=== PATIENT | male | born 1955 | race Caucasian/White ===

== ENCOUNTER 2017-02-22 09:05 | Inpatient (IN) ==
[2017-02-22] MEDS ORDERED: Tirofiban 12.5 MG/250ML 12.5 MG/250 ML BAG ONE (09:16)
[2017-02-22] MEDS ORDERED: Verapamil 5 MG/2 ML VIAL ONE (09:16)
[2017-02-22] MEDS ORDERED: *HR* Midazolam HCl 5 MG/5 ML VIAL IVP ONE (09:34)
[2017-02-22] MEDS ORDERED: *HR* FentaNYL (PF) 100 MCG/2 ML VIAL ONE (09:34)
[2017-02-22] MEDS ORDERED: 0.9 % Sodium Chloride 1,000 ML ONE (09:34)
--- NOTE | 2017-02-22 10:39 | Pre-Sedation Evaluation ---
Pre-sedation evaluation - Pre-sedation checklist Date of procedure: 02/22/17 Procedure: left heart cath Recent Vitals: VS as documented by EMR H&P (including ROS) documented in medical record: Yes Previous reaction to sedatives/anesthetics: No Dietary Status: unknown Airway Assessment: Patient can open mouth completely, TMJ function normal Dentition: No loose teeth or bridges ASA Classification *see protocol: CLASS II-Mild systemic disease, E-EMERGENCY- Add to any of the above to indicate emergent Plan of Care: Pt appropriate candidate for procedure/moderate/conscious sedation , Risks/benefits of procedure/sedation discussed w/ patient/family, If not NPO; Risk of intake outweiged by necessity to perform procedure
--- NOTE | 2017-02-22 10:50 | Invasive Diagnostic Lab Proc ---
Name: Benjie Preciado Date of Study: 02/22/2017 Date: 1955 Ht: 73.0in Medical Record#: [id number] Age: 61 Wt: 200.40lb Gender: Male BSA: 2.15 Order #: [id number] BMI: 26.45 Physicians Procedure Physician: Raymond Mann MD, [facility] Referring MD: Juan M Gomez MD Referring MD: Staff Name Position Time In Corky Mcallister RN Monitor 09:36 AM LeoCari RN Monitor 09:37 AM Haydee Regan RN Leadership Intern 09:37 AM Jennifer aPris RN Leadership Intern 09:37 AM Corine Pickens RT (R) Scrub 09:37 AM Indications Indication STEMI Procedures Performed Procedure PRQ CARD REVASC IA 1 VSL L HRT ARTERY/VENTRICLE ANGIO PRQ CARD SAMINA STENT W/ANGIO 1 VSL Pre-Procedure Checklist Informed consent is complete signed and on chart. H&P is on chart. ID band is on and ID verified with patient. Patient NPO for procedure The procedure was described for the patient and questions were answered. Blood Pressure: 139/74 ECG is on chart. Rhythm: NSR Plan of Care Patient will tolerate the procedure without complications. Adequate level of comfort will be maintained. Hemodynamics will remain stable Patient will recover from procedure without complications. Respiratory function will be maintained. Cardiac rhythm will remain stable. Patient temperature will be maintained. Patient and/or family have verbalized understanding of the procedure. Patient Education Chief Complaint/Reason for Test: Cardiac Cath Developmental Category: Adult (18-64 years) Developmentally Appropriate for Age: Yes Learning Barriers: None Education Needs: Procedure Education Method: Verbal Information Taught: Cardiac Cath Educational Evaluation: Able to repeat information Intravenous Access Time IV Size Location DC'd Fluid/Drip Rate Units RN 20g 1 1/4" Patent On Arrival Rt Hand Haydee Regan RN 20g 1 1/4" Patent On Arrival Lt Wrist 0.9NaCl Haydee Regan RN Allergies No Known Allergies Vital Signs Time BP (mmHg) HR (bpm) O2 Sat. RR (bpm) LOC 09:43 AM / % 5 = Fully awake and oriented or at pre-proc level 09:39 AM 133 / 113 83 96 % 12 09:45 AM 127 / 72 89 89 % 22 09:50 AM 127 / 70 89 91 % 28 09:54 AM 109 / 67 90 83 % 15 09:59 AM 88 / 63 87 89 % 32 10:01 AM 128 / 90 86 93 % 24 10:09 AM 226 / 171 86 93 % 22 10:16 AM 92 / 64 85 91 % 27 09:43 AM / % 4 = Oriented but drowsy 09:58 AM / % 4 = Oriented but drowsy Procedural Medications Time Medication Dose Units Method Given By 09:38 AM Oxygen 2 L/min nasal cannula Haydee Regan RN 09:40 AM Versed 2 mg Intravenous Haydee Regan RN 09:40 AM Fentanyl 50 mcg Intravenous Haydee Regan RN 09:44 AM Lidocaine 2% 0.5 ml Subcutaneous Raymond Mann MD, FACC 09:45 AM Heparin 4000 units Nitroglycerin 200 mcg Verapamil 2.5 mg Intraarterial Raymond Mann MD, FACC 09:45 AM Oxygen 6 L/min nasal cannula Haydee Regan RN 09:56 AM Oxygen 10 L/min Oxy Mask Haydee Regan RN 09:59 AM Angiomax 0.75mg/kg bolus: 46 ml Intravenous Haydee Regan RN 09:59 AM Aggrastat Bolus: 46 ml Intravenous Haydee Regan RN 09:59 AM Aggrastat 12.5mg/250ml 16.5 ml/hr Intravenous Haydee Regan RN 10:03 AM Oxygen 12 L/min Oxy Mask Haydee Regan RN 10:04 AM Oxygen 15 L/min nasal cannula Haydee Regan RN 10:07 AM Heparin 2000 units Intravenous Haydee Regan RN ASA Classification: CLASS II- Mild systemic disease (i.e. well-controlled diabetes, hypertension, asthma, cigarette smoking) Emergent Procedure: ASA score is assumed Glenn Score Preprocedure Postprocedure Activity 2- Moves 4 extremities sustained head lift Activity 2- Moves 4 extremities sustained head lift Circulation 2- SBP +/= 20 points of pre-anesthetic level Circulation 2- SBP +/= 20 points of pre-anesthetic level Consciousness 2- Awake and alert oriented x 3 Consciousness 2- Awake and alert oriented x 3 O2 Saturation 2- Able to maintain O2 satruation of 92% on room air O2 Saturation 2- Able to maintain O2 satruation of 92% on room air Respiratory 2- Able to deep breathe and cough well Respiratory 2- Able to deep breathe and cough well Total Score 10 Total Score 10 Contrast Agent: Isovue Diagnostic Contrast: 152 ml Total Contrast: 152 ml Fluoro Dose: 423 mGy Activated Clotting Time Time Seconds to Clot 10:07 AM 237 Procedure Log Time Note Enter By 09:23 AM CathStat 09:33 AM Pt arrived to lab coordinator 2 at 09:33 [facility] 09:33 AM Physicdesmond paged/called 09:33. jcallihan 09:33 AM Physican responded and notified patient is ready 09:33 [email or web address] 09:33 AM Physician arrived 09:33 jcallihan 09:36 AM Meet and greet completed [facility] 09:36 AM Sign in performed according to hospital policy. jcallan 09:36 AM Procedure start 09:36 jcallihan 09:37 AM Corky Mcallister RN Position: Monitor Time in: 09:36 jcallan 09:37 AM Cari Bailey RN Position: Monitor Time in: 09:37 [facility] 09:37 AM Haydee Regan RN Position: Leadership Intern [facility]: 09[facility] AM Jennifer Paris RN Position: Leadership Intern Time in: 09:37 [facility] 09:37 AM Corine Pickens RT (R) Position: Scrub Time in: 09:37 [facility] 09:37 AM Patient charges- Angio tray pack, Navilyst 3mm J, Pulse Oximetry and ACIST tubing and transducer [facility] 09:37 AM Hair removed from procedure site in holding area using clippers. Right wrist/groin prepped with Chloraprep by Corine Pickens RT (R), then patient was draped. Skin intact. [facility] 09:38 AM Time: 09:38 Oxygen on at 2 L/min per nasal cannula by Haydee Regan RN [facility] 09:39 AM Vitals capture started with the following parameters, Patient=Adult, Interval=5 min, Initial Amkkudys=901 mmHg, Deflation Rate=5 mmHg, Cuff placed on Left Arm 09:39 AM Recorded ECG: HR=88 Condition=Condition 1 09:39 AM HR=83 bpm, MIEP=322/113 mmhg, SpO2=96.0 %, Resp=12 B/min, Comment=NSR 09:40 AM Time: 09:40 Versed 2 mg Intravenous Given by Haydee Regan RNdesmond 09:40 AM Time: 09:40 Fentanyl 50 mcg Intravenous Given by Haydee Regan RN [facility] 09:42 AM Time: 09:42 Patient comfortable and pain free: Yes [email or web address] 09:43 AM Time: :43LOC: 5 = Fully awake and oriented or at pre-proc level jcallihan 09:43 AM Clinical Presentation: STEMI or equivalent jcallihan :44 AM Time out performed according to hospital policy jcallihan 09:44 AM Pressure channel 3 zero failed. 09:44 AM Pressure channel 3 zeroed. 09:45 AM Time: :44 0.5 ml Lidocaine 2% to right radial Subcutaneous Given by Raymond Mann MD, [facility] 09:45 AM Access obtained by percutaneous puncture. 6Fr 11cm Terumo Glidesheath sheath placed in right Radial artery. [id number] jcallan 09:45 AM HR=89 bpm, YIWK=139/72 mmhg, SpO2=89.0 %, Resp=22 B/min, Comment=NSR 09:45 AM Time: 09:45 Patient given 4,000 units Heparin, 200 mcg Nitroglycerin, and 2.5 mg Verapamil [facility]arterial [facility] AM Time: 09:45 Oxygen on at 6 L/min per nasal cannula by Haydee Regan RN [facility] 09:46 AM ASA Class CLASS II- Mild systemic disease (i.e. well-controlled diabetes, hypertension, asthma, cigarette smoking) jcallihan 09:48 AM 6Fr EBU 3.0 Medtronic guide catheter was used to cannulate the PCI vessel successfully. reused? No jcallihan 09:48 AM RCA angiography performed in multiple views. jcallihan 09:48 AM Recorded Pressure: Ao, HR=89, Condition=Condition 1 (Aorta) Ao 102/71/85 09:49 AM Repositioned to LCA. jcallihan 09:49 AM LCA angiography performed in multiple views. jcallihan 09:49 AM .014 Tamms 190cm guide wire across target lesion- successful. reused? No jcallihan 09:50 AM Inflation device was opened. jcallihan 09:50 AM HR=89 bpm, ZDVX=720/70 mmhg, SpO2=91.0 %, Resp=28 B/min, Comment=NSR 09:50 AM PCI Status Emergency jcallihan 09:50 AM PCI Indication: Immediate PCI for STEMI jcallan 09:51 AM Recorded Pressure: Ao, HR=89, Condition=Condition 1 (Aorta) Ao 103/71/86 09:51 AM 2.0 mm x 15 mm Emerge Monorail balloon across target lesion- successful. reused? No jcallihan 09:52 AM Balloon inflated @ 10 telma for 10 seconds jcallihan 09:54 AM Balloon catheter removed intact. allan 09:54 AM Recorded Pressure: Ao, HR=87, Condition=Condition 1 (Aorta) Ao 92/62/76 09:54 AM HR=90 bpm, NOYK=267/67 mmhg, SpO2=83.0 %, Resp=15 B/min, Comment=NSR 09:56 AM 3.0mm x 24mm Synergy drug-eluting stent across target lesion- successful Lot #[id number] [facility] 09:56 AM Time: 09:56 Oxygen on at 10 L/min per Oxy Mask by Haydee Rgean RN [facility] 09:57 AM Stent deployed @ 16 telma for 16 seconds [facility] 09:57 AM Time: 09:42 Patient comfortable and pain free: Yes [facility] 09:58 AM Time: 09:43LOC: 4 = Oriented but drowsy [facility] 09:58 AM Stent delivery system removed intact. [facility] 09:59 AM Pressure channel 3 zeroed. 09:59 AM Recorded Pressure: Ao, HR=89, Condition=Condition 1 (Aorta) Ao 98/71/86 09:59 AM Time: 09:59 Aggrastat Bolus: 46 ml Intravenous Given by Haydee Regan RN Strong pump [facility] 09:59 AM HR=87 bpm, NIBP=88/63 mmhg, SpO2=89.0 %, Resp=32 B/min 09:59 AM Time: 09:59 Aggrastat 12.5mg/250ml 16.5 ml/hr Intravenous Given by Haydee Regan RN Strong pump [facility] 10:00 AM NIBP STAT measurement started. 10:00 AM 3.5 mm x 8mm NC Trek Rx balloon across target lesion- successful. reused? No [email or web address] 10:01 AM HR=86 bpm, AOSC=965/90 mmhg, SpO2=93.0 %, Resp=24 B/min, Comment=NSR 10:01 AM Balloon inflated @ 14 telma for 20 seconds [email or web address] 10:03 AM Balloon catheter removed intact. jcallan 10:03 AM Time: 10:03 Oxygen on at 12 L/min per Oxy Mask by Haydee Regan RN [facility] 10:04 AM 3.0mm x 12mm Synergy drug-eluting stent across target lesion- successful Lot #[id number] [facility] 10:04 AM Time: 10:04 Oxygen on at 15 L/min per nasal cannula by Haydee Regan RN [facility] 10:04 AM Recorded Pressure: Ao, HR=84, Condition=Condition 1 (Aorta) Ao 91/64/79 10:06 AM Recorded Pressure: Ao, HR=77, Condition=Condition 1 (Aorta) Ao 72/52/63 10:06 AM NIBP STAT measurement started. 10:06 AM Stent deployed @ 14 telma for 16 seconds [facility] 10:07 AM At 10:07 the ACT was 237 seconds. [facility] 10:07 AM Stent delivery system removed intact. [facility] 10:07 AM Time: 10:07 Heparin 2000 units Intravenous Given by Haydee Regan RN [facility] 10:07 AM 3.0 mm x 8mm NC Trek Rx balloon across target lesion- successful. reused? No jcallihan 10:08 AM NIBP STAT measurement started. 10:09 AM Recorded Pressure: Ao, HR=87, Condition=Condition 1 (Aorta) Ao 94/73/84 10:09 AM HR=86 bpm, CJBG=256/171 mmhg, SpO2=93.0 %, Resp=22 B/min 10:09 AM Balloon inflated @ 18 telma for 20 seconds [email or web address] 10:09 AM Balloon inflated @ 18 telma for 15 seconds jcallihan 10:11 AM Balloon catheter removed intact. jcallihan 10:11 AM Guide wire removed intact. jcallihan 10:11 AM Guide catheter removed intact. jcallihan 10:11 AM 5Fr Pigtail catheter inserted over the wire DNC jcallihan 10:11 AM Catheter selectively placed in left ventricle jcallihan 10:13 AM Recorded Pressure: LV, HR=81, Condition=Condition 1 (Left Ventricle) LV 102/20/28 10:14 AM Recorded Pressure: LV, Ao, HR=84, Condition=Condition 1 (Left Ventricle) LV 106/24/32, (Aorta) Ao 104/72/88 10:14 AM Time: 09:58LOC: 4 = Oriented but drowsy jcallihan 10:14 AM Time: 09:57 Patient comfortable and pain free: Yes [email or web address] 10:14 AM Bolus angiogram of left Ventricle complete: 12 ml/sec for a total of 30 mls jcallihan 10:15 AM Catheter removed jcallihan 10:15 AM NIBP STAT measurement started. 10:15 AM Procedure completed at 10:15 jcallihan 10:16 AM Sign out completed: Radiation Dose 423 mGy Fluoro Time: 6.8 Isovue 370 - 200ml contrast 152 ml given by Raymond Mann MD, FACC. Complications: NoneCardiac Rehab Consult needed: YesConfirmed administered medications: Yes jcallihan 10:16 AM HR=85 bpm, NIBP=92/64 mmhg, SpO2=91 %, Resp=27 B/min 10:16 AM Arterial sheath pulled, Vasc Band closure device used and was Successful S/N. jcallihan 10:16 AM 10 ml air in Vasc Band. jcallihan 10:17 AM 10:33 Post Pulses Rt Radial 1+ jcallihan 10:17 AM Post ECG NSR jcallihan 10:17 AM Post Blood Pressure 92/64 jcallihan 10:18 AM Information taught Cardiac Cath, PCI, and Vasc Band jcallihan 10:18 AM Education needs Procedure, Plan of Care, and Responsibilities of Patient in Care jcallihan 10:18 AM Learning barriers :None jcallihan 10:18 AM Education Methods Verbal jcallihan 10:18 AM Education evaluation Able to repeat information jcallihan 10:19 AM Site status No bleeding/hematoma - Rt Wrist as reported by Corine Pickens RT (R) at 10:18 jcallihan 10:19 AM Plavix, Effient or Brilinta given No, Plavix given at [place] [facility] jcallihan 10:20 AM Delay to floor No jcallihan 10:20 AM Complications: None jcallihan 10:20 AM Fluoro Time: 6.8 jcallihan 10:20 AM Isovue 370 - 200ml contrast 152 ml given by Raymond Mann MD, [facility]. jcallihan 10:20 AM Radiation Dose 423 mGy jcallihan 10:24 AM Lesion found in Proximal LAD. Pre Stenosis: 100 Pre CAM Flow: jcallihan 10:24 AM Lesion found in Proximal RCA. Pre Stenosis: 20 Pre CAM Flow: jcallihan 10:25 AM Lesion found in Mid Circumflex. Pre Stenosis: 95 Pre CAM Flow: jcallihan 10:25 AM Proximal Left Anterior Descending Coronary Artery with 100% stenosis. If graft is supplying this territory, 0 % stenosis. jcallihan 10:25 AM Right Coronary, Right Posterior Descending Arteries with Right Posterolateral and Acute Marginal branches with 20 % stenosis. If graft is supplying this area, 0 % stenosis jcallihan 10:25 AM Circumflex, Obtuse Marginal, Left Posterior Descending, and Left Posterolateral Coronary Arteries with 95 % stenosis. If graft is supplying this area, 0 % stenosis jcallihan 10:31 AM Report given to Margie BENOIT Pt taken to ICU Room #12. 10:31 jcallihan 10:33 AM Patient out of room: 10:33 jcallihan 10:43 AM Coronary Dominance: right [email or web address] Complications Complication None None Hemodynamics Pressures Site Systolic/A Wave Diastolic/V Wave Mean AO 102 71 85 AO 103 71 86 AO 92 62 76 AO 98 71 86 AO 91 64 79 AO 72 52 63 AO 94 73 84 LV 102 20 28 LV 106 24 32 AO 104 72 88 Post Procedure Information Blood Pressure: 92/64 mmHg Rhythm: NSR Post procedural instructions were given Closure Device Time Device Success/Fail 02/22/2017 10:22:00 AM Mechanical Compression Successful Site Checks Time Location Status Staff Sheath In? Note 10:18 AM Rt Wrist No bleeding/hematoma Corine Pickens RT (R) Pulses Time Site Pre-Procedure Post-Procedure Note 10:33:00 AM Rt Radial 1+ 02/22/2017 9:35:00 AM Rt Radial 1+ Updated by Corky Mcallister RN on 02/22/2017 10:44:52 AM electronically signed on 02/22/2017 10:46:34 AM with status of Final
[2017-02-22] MEDS ORDERED: Nitroglycerin 0.4 MG TAB.SUBL SL PRN (11:13)
[2017-02-22] MEDS ORDERED: Ondansetron 4 MG/2 ML VIAL IVP PRN (11:13)
[2017-02-22] MEDS ORDERED: *HR* Morphine 2 MG/ML SYRINGE IVP PRN (11:13)
[2017-02-22] MEDS ORDERED: *HR* Metoprolol 5 MG/5 ML VIAL IVP PRN (11:13)
[2017-02-22] MEDS ORDERED: Tirofiban 12.5 MG/250ML 12.5 MG/250 ML BAG IVC SCH (11:15)
[2017-02-22] MEDS ORDERED: Acetaminophen 325 MG TABLET PO PRN (11:18)
--- NOTE | 2017-02-22 11:26 | Cardiology History & Physical ---
Date of Encounter: 02/22/17 Time of Encounter: 11:20 Assessment and Plan (1) ST elevation myocardial infarction (STEMI) Current Visit: No Status: Acute Emergent LHC for life saving purposes with anterolateral STEMI. A/R/B discussed with patient and he is agreeable with proceeding. Aspirin, brilinta, and heparin given. Statin will be ordered and EF assessment completed with further treatment dictated by findings on LHC. Cardiac rehab ordered. Critical care time: 45 minutes+ The assessment and plan as outlined above was discussed with the patient and/or family members who expressed understanding and agreement. All questions were answered. Qualifiers: Involved coronary artery: LAD coronary artery Qualified Code(s): I21.02 - ST elevation (STEMI) myocardial infarction involving left anterior descending coronary artery (2) Hypertension Current Visit: Yes Status: Acute tirate BB/ACEI The assessment and plan as outlined above was discussed with the patient and/or family members who expressed understanding and agreement. All questions were answered. Qualifiers: Hypertension type: essential hypertension Qualified Code(s): I10 - Essential (primary) hypertension History of Present Illness HPI: Mr. Preciado is a 61 year old male with no previous cardiac history presents with severe 8/10 chest pressure that is retrosternal radiating from left to right side of chest associated with dyspnea. It started at 530 AM and had minimal improvement with aspirin, NTG and oxygen. He has had this discomfort previously but not as severe. 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 Past Med Surg Social Fam HX - Past Medical History Medical history: hypertension, seizures Psychiatric history: anxiety, depression - Past Surgical History Surgical History: angioplasty/stent - Social History Smoking Status: Current every day smoker Packs per day: 1 Smokeless Tobacco Status: No Alcohol use: none Drug use: none - Family History Father Living Status: Age at : 64 Cause of : heart disease Hx Family Cardiac Disorders: Yes Mother Living Status: Cause of : CVA Medications and Allergies Citalopram Hydrobromide [Celexa] 40 mg PO DAILY 03/15/16 [History] risperiDONE [Risperidone] 1 mg PO DAILY 03/15/16 [History] 3 Allergy/AdvReac Type Severity Reaction Status Date / Time No Known Allergies Allergy Verified 03/15/16 10:37 All Systems Review: A 10-system review of systems was performed and is negative for pertinent findings except as documented above in the HPI. - Constitutional Constitutional: no chills, no fever(s) - EENT Eyes: no blurred vision, no loss of vision Nose, mouth and throat: no dysphagia, no epistaxis - Cardiovascular Cardiovascular: chest pain at rest, chest pain with exertion, dyspnea at rest - Respiratory Respiratory: dyspnea, no hemoptysis, no wheezing - Gastrointestinal Gastrointestinal: no hematemesis, no hematochezia - Genitourinary Genitourinary: no hematuria, no nocturia - Musculoskeletal Musculoskeletal: no arthralgias, no myalgias - Integumentary Integumentary: no erythema, no unusual bruising - Neurological Neurological: no focal weakness, no numbness - Psychiatric Psychiatric: no anxiety, no depression - Hematological/Lymphatic Hematologic/Lymphatic: no easy bleeding, no easy bruising Physical Examination Vital Signs, Last 4 Hours Temp Pulse Resp BP Pulse Ox 02/22/17 11:05 75 22 101/74 92 02/22/17 10:50 78 22 105/75 92 02/22/17 10:35 97.6 F 76 20 106/75 94 General: Conversant, Other (distressed) HEENT: Atraumatic Neck: No JVD Cardiac: Reg Rate and Rhythm Lungs: Normal Breath Sounds Neuro: Alert and responsive Abdomen: Soft Skin: No rashes noted on visualized skin Musculoskeletal: No Chest Wall Tenderness Extremities: No Edema Results - EKG Interpretation EKG results cardiology: personally reviewed (sinus rhythm anterolateral current of injury)
--- NOTE | 2017-02-22 21:02 | Electrocardiograph Report ---
[address] [place], [place] [address] Test Date: 2017-02-22 Pat Name: Benjie Preciado Department: [id number] Room: 12 Gender: M Dye Tank Tender: Rich : 1955 Requested By: Raymond Mann Order Number: [id number] Reading MD: Raymond Mann MD Measurements Intervals [place] Rate: 79 P: 81 UT: 146 QRS: -46 QRSD: 102 T: 54 QT: 348 QTc: 383 Interpretive Statements SINUS RHYTHM INDETERMINATE AXIS LEFT ANTERIOR FASCICULAR BLOCK ANTEROLATERAL MYOCARDIAL INFARCTION, PROBABLY RECENT ACUTE MA Electronically Signed On 02-22-2017 21:01:05 EDT by Raymond Mann MD
[2017-02-22] MEDS: risperiDONE 1 MG TABLET PO SCH (21:30)
[2017-02-22] MEDS: *HR* Ticagrelor 90 MG TABLET PO SCH (21:30)
[2017-02-23 03:52] LABS: BUN/Creatinine Ratio 15 (6-26); Basophils % 0.2 %; Blood Urea Nitrogen 14 mg/dL (8-26); Calcium 8.9 mg/dL (8.6-10.8); Carbon Dioxide 22 mEq/L (19-29); Chloride 107 mEq/L (98-109); Glucose 118 mg/dL (70-99); Hematocrit 40.6 % (37.5-50.1); Hemoglobin 14.1 g/dL (12.9-16.9); Immature Granulocytes % 0.4 % (0-4); Lymphocytes % 7.6 %; Mean Corpuscular HGB Conc 34.7 g/dL (31.6-35.5); Mean Corpuscular Hemoglobin 31.5 pg (28.0-33.3); Mean Corpuscular Volume 90.8 fL (83.0-100.0); Mean Platelet Volume 10.4 fL (9.4-12.4); Monocytes # 1.2 K/mcL (0.0-1.3); Monocytes % 8.8 %; Neutrophils # 11.3 K/mcL (1.6-8.9); Osmolality,Calculated 284 (280-300); Platelet Count 208 K/mcL (140-400); Red Blood Count 4.47 M/mcL (4.19-5.50); Red Cell Distribution Width 12.9 % (11.5-14.5); Sodium 136 mEq/L (136-145); eGFR For African Americans > 60 (> 60); eGFR For Non-African Americans > 60 (> 60)
[2017-02-23] MEDS: Aspirin 81 MG TAB.CHEW PO SCH (08:42)
[2017-02-23] MEDS: *HR* Ticagrelor 90 MG TABLET PO SCH ×2 (08:42→19:49)
[2017-02-23] MEDS: *HR* HYDROcodone/Acet 5/325 mg TABLET PO PRN ×2 (08:45→19:49)
--- NOTE | 2017-02-23 11:35 | Cardiology Progress Note ---
Date of Encounter: 02/23/17 Time of Encounter: 11:32 Assessment and Plan (1) STEMI (ST elevation myocardial infarction) Current Visit: Yes Status: Acute Pt presented as anterolateral STEMI. [facility] with PCI to pLAD and mLCx, EF estimated at 20% on LHC. Echo EF 25-30% with wall motion abnormalities, mild LVDD, no significant valvular dysfunction. Small pericardial effusion without tamponade. Pt denies chest pain or dyspnea this AM. DAPT (ASA and Brilinta) uninterrupted x 1 year. Pt verbalizes understanding. Continue Statin. No BB or ACEi/ARB due to hypotension. Possible step down later today depending on BP. Right radial access site healing well. No bleeding, hematoma or ecchymosis noted. Qualifiers: Involved coronary artery: other anterior wall coronary artery Qualified Code(s): I21.09 - ST elevation (STEMI) myocardial infarction involving other coronary artery of anterior wall (2) Ischemic cardiomyopathy Current Visit: Yes Status: Acute EF 25-30% on echo s/p STEMI and now s/p PCI. Recheck echo as outpt. Euvolemic on exam. Currently not on BB or ACEi/ARB due to hypotension. (3) CAD (coronary artery disease) Current Visit: Yes Status: Acute As above, s/p STEMI with PCI to pLAD and mLCx. Qualifiers: Coronary Disease-Associated Artery/Lesion type: [place] artery [place] vs. transplanted heart: [place] heart Associated angina: without angina Qualified Code(s): I25.10 - Atherosclerotic heart disease of [place] coronary artery without angina pectoris Discussion w patient/family: The assessment and plan as outlined above was discussed with the patient and/or family members who expressed understanding and agreement. All questions were answered. Thank you for involving us in the care of your patient. Please call with any questions. I will discuss all the above with Dr. Oscar Ray and make changes as necessary. Subjective Principal diagnosis: STEMI Interval history: S/P anterolateral STEMI yesterday--[facility] with PCI to pLAD and mLCx, EF estimated to be 20% on LHC. Echo resulted-EF 25-30% with regional wall motion abnormalities. Mild LVDD, no significant valvular dysfunction, mild phtn est RVSP 38mmHg. Small pericardial effusion without tamponade. Pt denies chest pain or dyspnea, states he is feeling better. Objective Vital Signs, Last 4 Hours Pulse Resp BP Pulse Ox 02/23/17 10:00 80 20 92/61 93 02/23/17 09:00 83 21 102/60 94 02/23/17 08:05 73 20 98/67 94 02/23/17 08:03 93/64 02/23/17 08:00 77 12 75/50 95 Vital Signs Temp Pulse Resp BP Pulse Ox 02/23/17 10:00 80 20 92/61 93 02/23/17 09:00 83 21 102/60 94 02/23/17 08:05 73 20 98/67 94 02/23/17 08:03 93/64 02/23/17 08:00 77 12 75/50 95 02/23/17 07:00 98.3 F 76 98/67 02/23/17 06:00 81 22 98/71 95 02/23/17 05:00 78 12 98/63 93 02/23/17 04:00 78 18 111/77 96 02/23/17 03:00 79 20 112/68 96 02/23/17 02:00 80 18 112/72 97 02/23/17 01:00 82 17 115/74 95 02/23/17 00:00 86 18 93/55 97 02/22/17 23:00 88 18 114/73 95 02/22/17 22:00 85 18 114/73 97 02/22/17 21:00 80 29 114/64 92 02/22/17 20:32 97.7 F 02/22/17 20:00 83 23 95 02/22/17 19:00 83 23 113/74 93 02/22/17 18:00 90 18 101/84 95 02/22/17 17:00 89 18 116/66 95 02/22/17 16:00 83 20 118/83 98 02/22/17 15:00 85 20 114/82 98 02/22/17 14:00 78 18 118/78 98 02/22/17 13:00 80 20 110/76 98 02/22/17 12:00 73 20 110/74 97 Intake and Output 02/22/17 02/23/17 02/23/17 23:59 07:59 15:59 Intake Total 200 / 200 240 / 240 360 / 360 Output Total 150 / 150 600 / 600 Balance 50 / 50 -360 / -360 360 / 360 Intake: Oral 200 / 200 240 / 240 360 / 360 Output: Urine 150 / 150 600 / 600 Other: Meal Dinner Breakfast Percent of Meal Consumed 35% 100% General: Conversant, No Apparent Distress HEENT: Atraumatic, Normocephaly, Mucus Membranes Moist Neck: No JVD, Normal carotid pulses Cardiac: Reg Rate and Rhythm, Normal S1 and S2, No Murmur Lungs: Normal Breath Sounds, No Wheeze, Rales, Rhonchi Neuro: Alert and responsive, No focal deficits noted Abdomen: Soft, Non-Tender Skin: Other (right radial access site healing well. No bleeding, hematoma or ecchymosis noted.) Musculoskeletal: No Chest Wall Tenderness Extremities: No Clubbing, No Cyanosis, No Edema, Normal Pulses Results 02/23/17 03:22 02/23/17 03:22 Lab Results 02/23/17 02/23/17 03:22 03:22 WBC 13.7 H Hgb 14.1 Hct 40.6 Plt Count 208 Sodium 136 Potassium 4.0 Chloride 107 Carbon Dioxide 22 BUN 14 Creatinine 0.91 Glucose 118 H Calcium 8.9 Short CBC 02/23/17 Range/Units 03:22 WBC 13.7 H (4.3-11.1) K/mcL Hgb 14.1 (12.9-16.9) g/dL Hct 40.6 (37.5-50.1) % Plt Count 208 (140-400) K/mcL Neutrophils # 11.3 H (1.6-8.9) K/mcL BMP 02/23/17 Range/Units 03:22 Sodium 136 (136-145) mEq/L Potassium 4.0 (3.5-4.5) mEq/L Chloride 107 (98-109) mEq/L Carbon Dioxide 22 (19-29) mEq/L BUN 14 (8-26) mg/dL Creatinine 0.91 (0.72-1.25) mg/dL Glucose 118 H (70-99) mg/dL Calcium 8.9 (8.6-10.8) mg/dL Impressions Echocardiogram 02/22/17 11:14 Impressions: Severe LV systolic dysfunction, LVEF 25-30%. There are regional wall motion abnormalities, see diagram below. Mild left ventricular diastolic dysfunction. Normal right ventricular size and function. No significant valvular dysfunction. Mild pulmonary hypertension. Estimated RVSP = 38 mmHg. There is a small pericardial effusion present. There is no echocardiographic evidence of tamponade. Left Ventricular Wall Motion: Rest Echo Findings The mid inferior, apical anterior, mid anterior lateral and basal anterior septal [place] were hypokinetic. The apex, apical inferior, apical septal, mid inferior septal, apical lateral, mid anterior septal and mid inferior lateral [place] were akinetic. All other wall segments showed normal motion. Findings: Study Quality * Suboptimal echo windows. ECG Findings * Normal sinus rhythm. Left Ventricle * Severe LV systolic dysfunction, LVEF 25-30%. There are regional wall motion abnormalities, see diagram below. * Normal LV chamber size and wall thickness. * Mild left ventricular diastolic dysfunction. Right Ventricle * Normal right ventricular size and function. Left Atrium * Normal left atrial size. Right Atrium * Normal right atrial size. Aorta * Normally sized aortic root. Pericardium * There is a small pericardial effusion present. * There is no echocardiographic evidence of tamponade. IVC * Normal IVC dimensions and inspiratory collapse. Aortic Valve * Aortic valve not well visualized. * No aortic stenosis. * No aortic regurgitation. Mitral Valve * Normal mitral valve structure. * No mitral stenosis. * No mitral regurgitation. Tricuspid Valve * Tricuspid valve not well visualized. * No tricuspid stenosis. * Trace tricuspid regurgitation. * Mild pulmonary hypertension. Estimated RVSP = 38 mmHg. Pulmonic Valve * Pulmonic valve not well visualized. * No pulmonic stenosis. * No pulmonic regurgitation. Active Medications Acetaminophen (Tylenol) 650 mg PO Q6HR PRN PRN Reason: Mild Pain Stop: 08/24/17 11:19 Hydrocodone Bitart/Acetaminophen ([place] 5-325 Mg) 1 tab PO Q4HR PRN PRN Reason: Moderate Pain Stop: 08/24/17 11:19 Last Admin: 02/23/17 08:45 Dose: 1 tab Aspirin (Aspirin) 81 mg PO DAILY [facility] Stop: 08/25/17 09:01 Last Admin: 02/23/17 08:42 Dose: 81 mg Citalopram Hydrobromide (Celexa) 40 mg PO HS [facility] Stop: 08/24/17 21:31 Last Admin: 02/22/17 21:31 Dose: 40 mg Diphenhydramine HCl (Benadryl) 25 mg PO HS PRN PRN Reason: Insomnia Stop: 08/24/17 11:19 Last Admin: 02/22/17 21:30 Dose: 25 mg Metoprolol Tartrate (Lopressor) 5 mg IVP Q6HR PRN PRN Reason: SEE COMMENTS Stop: 08/24/17 11:14 Morphine Sulfate (Morphine Sulfate) 4 mg IVP Q3H PRN PRN Reason: Severe Pain (7-10) Stop: 08/24/17 11:14 Nitroglycerin (Nitroglycerin) 0.4 mg SL Q5MIN PRN PRN Reason: Chest Pain Stop: 08/24/17 11:14 Ondansetron HCl (Zofran) 4 mg IVP Q8HR PRN PRN Reason: Nausea And Vomiting Stop: 08/24/17 11:14 Last Admin: 02/22/17 17:34 Dose: 4 mg Risperidone (Risperdal) 1 mg PO HS [facility] Stop: 08/24/17 21:16 Last Admin: 02/22/17 21:30 Dose: 1 mg Rosuvastatin Calcium (Crestor) 40 mg PO HS [facility] Stop: 08/24/17 21:01 Last Admin: 02/22/17 21:30 Dose: 40 mg Ticagrelor (Brilinta) 90 mg PO BID [facility] Stop: 08/24/17 21:01 Last Admin: 02/23/17 08:42 Dose: 90 mg - Imaging and Cardiology Echo: report reviewed Cardiac cath: report reviewed - EKG Interpretation EKG results cardiology: other (12 hr tele AVG HR 80, SR) - VTE Documentation of Mechanical Device: Intermittent pneumatic compression device Consult Discharge Plan - Plan Referrals: Juan M Gomez MD [Primary Care Provider] -
[2017-02-23] MEDS: Nicotine 21 MG PATCH.TD24 TD SCH (13:49)
--- NOTE | 2017-02-23 15:27 | Electrocardiograph Report ---
[address] [place] [address] Test Date: 2017-02-22 Pat Name: Benjie Preciado Department: 109 Room: [facility] Gender: M Blueprinter: : 1955 Requested By: Raymond Mann Order Number: [id number] Reading MD: Raymond Mann MD Measurements Intervals [place] Rate: 86 P: ND: 0 QRS: 216 QRSD: 177 T: 46 QT: 423 QTc: 466 Interpretive Statements SINUS RHYTHM W PVC IVCD INFERIOR MYOCARDIAL INFARCTION, PROBABLY OLD ANTEROLATERAL MYOCARDIAL INFARCTION, POSSIBLY ACUTE ACUTE AR Electronically Signed On 02-23-2017 15:25:43 EDT by Raymond Mann MD
[2017-02-23] MEDS: risperiDONE 1 MG TABLET PO SCH (19:50)
[2017-02-24] MEDS: Aspirin 81 MG TAB.CHEW PO SCH (08:48)
[2017-02-24] MEDS: Nicotine 21 MG PATCH.TD24 TD SCH (08:48)
[2017-02-24] MEDS: *HR* Ticagrelor 90 MG TABLET PO SCH ×2 (08:48→21:09)
--- NOTE | 2017-02-24 12:24 | Cardiology Progress Note ---
Date of Encounter: 02/24/17 Time of Encounter: 11:00 Assessment and Plan (1) STEMI (ST elevation myocardial infarction) Current Visit: Yes Status: Acute Pt presented as anterolateral STEMI. [facility] with PCI to pLAD and mLCx, EF estimated at 20% on C. Echo EF 25-30% with wall motion abnormalities, mild LVDD, no significant valvular dysfunction. Small pericardial effusion without tamponade. DAPT (ASA and Brilinta) uninterrupted x 1 year. Pt verbalizes understanding. Continue Statin. No BB or ACEi/ARB due to hypotension. Right radial access site healing well. No bleeding, hematoma or ecchymosis noted. Pt states he had chest pressure earlier this AM. Unclear if he did or not- having difficulty recalling events. Unclear if he has insight into medical problems and will be able to be compliant with meds. No family present at bedside. Will c/s social work. Qualifiers: Involved coronary artery: LAD coronary artery Qualified Code(s): I21.02 - ST elevation (STEMI) myocardial infarction involving left anterior descending coronary artery (2) Ischemic cardiomyopathy Current Visit: Yes Status: Acute EF 25-30% on echo s/p STEMI and now s/p PCI. Recheck echo as outpt. Euvolemic on exam. Currently not on BB or ACEi/ARB due to hypotension. (3) CAD (coronary artery disease) Current Visit: Yes Status: Acute As above, s/p STEMI with PCI to pLAD and mLCx. Qualifiers: Coronary Disease-Associated Artery/Lesion type: [place] artery [place] vs. transplanted heart: [place] heart Associated angina: without angina Qualified Code(s): I25.10 - Atherosclerotic heart disease of [place] coronary artery without angina pectoris Discussion w patient/family: The assessment and plan as outlined above was discussed with the patient and/or family members who expressed understanding and agreement. All questions were answered. Thank you for involving us in the care of your patient. Please call with any questions. Subjective Principal diagnosis: STEMI Interval history: Pt. seen and evaluated this AM. Pt states he had episode of chest pressure earlier this AM. Can't recall if he told nurse or not. Can't recall if he was given SL NTG or not. Spoke with nurse caring for pt and patient did not tell him that he had any chest discomfort. Pt can't remember what he was told about his heart and medications. Currently denies CP, SOB. No arrhythmias on telemetry overnight. Objective Vital Signs, Last 4 Hours Temp 02/24/17 08:30 97.9 F General: Conversant, No Apparent Distress HEENT: Atraumatic, Normocephaly, Mucus Membranes Moist Neck: No JVD, Normal carotid pulses Cardiac: Reg Rate and Rhythm, Normal S1 and S2, No Murmur Lungs: Normal Breath Sounds, No Wheeze, Rales, Rhonchi Neuro: Alert and responsive, No focal deficits noted Abdomen: Soft, Non-Tender Skin: No rashes noted on visualized skin Musculoskeletal: No Chest Wall Tenderness Extremities: No Clubbing, No Cyanosis, No Edema, Normal Pulses Results 02/23/17 03:22 02/23/17 03:22 - VTE Documentation of Mechanical Device: Intermittent pneumatic compression device Consult Discharge Plan - Plan Referrals: Juan M Gomez MD [Primary Care Provider] -
[2017-02-24] MEDS ORDERED: Ondansetron 4 MG/2 ML VIAL IVP PRN (13:16)
[2017-02-24] MEDS ORDERED: *HR* Metoprolol 5 MG/5 ML VIAL IVP PRN (13:16)
[2017-02-24] MEDS ORDERED: Nitroglycerin 0.4 MG TAB.SUBL SL PRN (13:16)
[2017-02-24] MEDS ORDERED: *HR* Morphine 2 MG/ML SYRINGE IVP PRN (13:16)
[2017-02-24] MEDS: risperiDONE 1 MG TABLET PO SCH (21:08)
[2017-02-25] MEDS: Nicotine 21 MG PATCH.TD24 TD SCH (08:33)
[2017-02-25] MEDS: *HR* Ticagrelor 90 MG TABLET PO SCH ×2 (08:33→20:04)
[2017-02-25] MEDS: Aspirin 81 MG TAB.CHEW PO SCH (08:33)
--- NOTE | 2017-02-25 09:59 | Cardiology Progress Note ---
Date of Encounter: 02/25/17 Time of Encounter: 09:57 Assessment and Plan (1) STEMI (ST elevation myocardial infarction) Current Visit: Yes Status: Acute Pt presented as anterolateral STEMI. [facility] with PCI to pLAD and mLCx, EF estimated at 20% on LHC. Echo EF 25-30% with wall motion abnormalities, mild LVDD, no significant valvular dysfunction. Small pericardial effusion without tamponade. DAPT (ASA and Brilinta) uninterrupted x 1 year. Pt verbalizes understanding. Continue Statin. No BB or ACEi/ARB due to hypotension. Right radial access site healing well. No bleeding, hematoma or ecchymosis noted. Pt denies chest pain this AM. He is having difficulty recalling events. Unclear if he has insight into medical problems and will be able to be compliant with meds. No family present at bedside. Will c/s social work for discharge planning. Plan to discharge once social work sees pt and discharge planning is completed. Qualifiers: Involved coronary artery: LAD coronary artery Qualified Code(s): I21.02 - ST elevation (STEMI) myocardial infarction involving left anterior descending coronary artery (2) Ischemic cardiomyopathy Current Visit: Yes Status: Acute EF 25-30% on echo s/p STEMI and now s/p PCI. Recheck echo as outpt. Euvolemic on exam. Currently not on BB or ACEi/ARB due to hypotension. Life vest recommended in cath report. No VT has been noted on tele prior--but currently not on telemetry--will order. Uncertain if pt will comply with life vest. Social work consult. (3) CAD (coronary artery disease) Current Visit: Yes Status: Acute As above, s/p STEMI with PCI to pLAD and mLCx. Qualifiers: Coronary Disease-Associated Artery/Lesion type: [place] artery [place] vs. transplanted heart: [place] heart Associated angina: without angina Qualified Code(s): I25.10 - Atherosclerotic heart disease of [place] coronary artery without angina pectoris Discussion w patient/family: The assessment and plan as outlined above was discussed with the patient and/or family members who expressed understanding and agreement. All questions were answered. Thank you for involving us in the care of your patient. Please call with any questions. I will discuss all the above with Dr. Oscar Ray and make changes as necessary. Subjective Principal diagnosis: STEMI Interval history: S/P anterolateral STEMI -[facility] with PCI to pLAD and mLCx, EF estimated to be 20% on LHC. Echo resulted-EF 25-30% with regional wall motion abnormalities. Mild LVDD, no significant valvular dysfunction, mild phtn est RVSP 38mmHg. Small pericardial effusion without tamponade. Pt denies chest pain or dyspnea this AM. Objective Vital Signs, Last 4 Hours Temp Pulse Resp BP Pulse Ox 02/25/17 07:34 98.3 F 72 16 103/70 98 General: Conversant, No Apparent Distress HEENT: Atraumatic, Normocephaly, Mucus Membranes Moist Neck: No JVD, Normal carotid pulses Cardiac: Reg Rate and Rhythm, Normal S1 and S2, No Murmur Lungs: Normal Breath Sounds, No Wheeze, Rales, Rhonchi Neuro: Alert and responsive, No focal deficits noted Abdomen: Soft, Non-Tender Skin: No rashes noted on visualized skin Musculoskeletal: No Chest Wall Tenderness Extremities: No Clubbing, No Cyanosis, No Edema, Normal Pulses Results 02/23/17 03:22 02/23/17 03:22 Active Medications Acetaminophen (Tylenol) 650 mg PO Q6HR PRN PRN Reason: Mild Pain Stop: 08/24/17 11:19 Hydrocodone Bitart/Acetaminophen ([place] 5-325 Mg) 1 tab PO Q4HR PRN PRN Reason: Moderate Pain Stop: 08/24/17 11:19 Aspirin (Aspirin) 81 mg PO DAILY [facility] Stop: 08/25/17 09:01 Last Admin: 02/25/17 08:33 Dose: 81 mg Citalopram Hydrobromide (Celexa) 40 mg PO HS [facility] Stop: 08/24/17 21:31 Last Admin: 02/24/17 21:08 Dose: 40 mg Diphenhydramine HCl (Benadryl) 25 mg PO HS PRN PRN Reason: Insomnia Stop: 08/24/17 21:01 Metoprolol Tartrate (Lopressor) 5 mg IVP Q6HR PRN PRN Reason: SEE COMMENTS Stop: 08/24/17 11:14 Morphine Sulfate (Morphine Sulfate) 4 mg IVP Q3H PRN PRN Reason: Severe Pain (7-10) Stop: 08/24/17 11:14 Nicotine (Nicoderm) 21 mg TD DAILY [facility] PRN Reason: Protocol Stop: 08/25/17 11:46 Last Admin: 02/25/17 08:33 Dose: 21 mg Nitroglycerin (Nitroglycerin) 0.4 mg SL Q5MIN PRN PRN Reason: Chest Pain Stop: 08/24/17 11:14 Ondansetron HCl (Zofran) 4 mg IVP Q8HR PRN PRN Reason: Nausea And Vomiting Stop: 08/24/17 11:14 Risperidone (Risperdal) 1 mg PO HS [facility] Stop: 08/24/17 21:16 Last Admin: 02/24/17 21:08 Dose: 1 mg Rosuvastatin Calcium (Crestor) 40 mg PO HS [facility] Stop: 08/24/17 21:01 Last Admin: 02/24/17 21:09 Dose: 40 mg Ticagrelor (Brilinta) 90 mg PO BID [facility] Stop: 08/24/17 21:01 Last Admin: 02/25/17 08:33 Dose: 90 mg - Imaging and Cardiology Echo: report reviewed Cardiac cath: report reviewed - VTE Documentation of Mechanical Device: Intermittent pneumatic compression device Consult Discharge Plan - Plan Referrals: Juan M Gomez MD [Primary Care Provider] -
[2017-02-25] MEDS: Acetaminophen 325 MG TABLET PO PRN (15:35)
[2017-02-25] MEDS: risperiDONE 1 MG TABLET PO SCH (20:04)
[2017-02-25] MEDS: *HR* HYDROcodone/Acet 5/325 mg TABLET PO PRN (20:10)
[2017-02-26] MEDS: *HR* Ticagrelor 90 MG TABLET PO SCH ×2 (08:51→20:05)
[2017-02-26] MEDS: Nicotine 21 MG PATCH.TD24 TD SCH (08:51)
[2017-02-26] MEDS: *HR* HYDROcodone/Acet 5/325 mg TABLET PO PRN ×2 (08:51→20:14)
[2017-02-26] MEDS: Aspirin 81 MG TAB.CHEW PO SCH (08:51)
--- NOTE | 2017-02-26 14:37 | Cardiology Progress Note ---
Date of Encounter: 02/26/17 Time of Encounter: 14:35 Assessment and Plan (1) STEMI (ST elevation myocardial infarction) Current Visit: Yes Status: Acute Pt presented as anterolateral STEMI. [facility] with PCI to pLAD and mLCx, EF estimated at 20% on C. Echo EF 25-30% with wall motion abnormalities, mild LVDD, no significant valvular dysfunction. Small pericardial effusion without tamponade. DAPT (ASA and Brilinta) uninterrupted x 1 year. Pt verbalizes understanding. Continue Statin. No BB or ACEi/ARB due to hypotension. Right radial access site healing well. No bleeding, hematoma or ecchymosis noted. Pt denies chest pain this AM. He is having difficulty recalling events. Social work and case management now on board--they contacted daughter who reports pt has had short term memory loss since 2000, has not been getting meds filled due to cost issues. Also with hx of psych hospitalizations. Psych consulted, as we appreciate their input given hx of psych hospitalizations , not taking meds. Plan to discharge once discharge planning is completed and he is deemed safe from psych standpoint. Qualifiers: Involved coronary artery: LAD coronary artery Qualified Code(s): I21.02 - ST elevation (STEMI) myocardial infarction involving left anterior descending coronary artery (2) Ischemic cardiomyopathy Current Visit: Yes Status: Acute EF 25-30% on echo s/p STEMI and now s/p PCI. Recheck echo as outpt. Euvolemic on exam. Currently not on BB or ACEi/ARB due to hypotension. Life vest recommended in cath report. No VT has been noted on tele. Unlikely pt would comply with lifevest given his short term memory loss. (3) CAD (coronary artery disease) Current Visit: Yes Status: Acute As above, s/p STEMI with PCI to pLAD and mLCx. Qualifiers: Coronary Disease-Associated Artery/Lesion type: [place] artery [place] vs. transplanted heart: [place] heart Associated angina: without angina Qualified Code(s): I25.10 - Atherosclerotic heart disease of [place] coronary artery without angina pectoris Discussion w patient/family: The assessment and plan as outlined above was discussed with the patient and/or family members who expressed understanding and agreement. All questions were answered. Thank you for involving us in the care of your patient. Please call with any questions. I will discuss all the above with Dr. Gomez and make changes as necessary. Subjective Principal diagnosis: STEMI Interval history: S/P anterolateral STEMI -[facility] with PCI to pLAD and mLCx, EF estimated to be 20% on LHC. Echo resulted-EF 25-30% with regional wall motion abnormalities. Mild LVDD, no significant valvular dysfunction, mild phtn est RVSP 38mmHg. Small pericardial effusion without tamponade. Pt denies chest pain or dyspnea this AM. Social work was consulted, case management involved as well. Per their notes, pt has not been getting meds, unable to afford. Daughter also confirms that pt has short term memory loss since 2000. Has also had psych hospitalizations. Objective Vital Signs, Last 4 Hours Temp Pulse Resp BP Pulse Ox 02/26/17 11:00 97.5 F L 75 16 92/66 96 Vital Signs Temp Pulse Resp BP Pulse Ox 02/26/17 11:00 97.5 F L 75 16 92/66 96 02/26/17 07:00 98.1 F 85 16 94/54 95 02/26/17 03:33 97.9 F 79 16 101/41 98 02/26/17 00:39 98.4 F 86 16 104/60 97 02/25/17 18:48 98.5 F 110 18 109/69 94 02/25/17 16:11 98.5 F 81 18 103/64 97 Intake and Output 02/25/17 02/26/17 02/26/17 23:59 07:59 15:59 Intake Total 240 / 240 Output Total 100 / 100 675 / 675 0 / 0 Balance -100 / -100 -675 / -675 240 / 240 Intake: Oral 240 / 240 Output: Urine 100 / 100 675 / 675 0 / 0 Other: Meal Lunch Percent of Meal Consumed 100% Weight 87 kg Patient Weight 02/26/17 23:59 Weight 87 kg General: Conversant, No Apparent Distress HEENT: Atraumatic, Normocephaly, Mucus Membranes Moist Neck: No JVD, Normal carotid pulses Cardiac: Reg Rate and Rhythm, Normal S1 and S2, No Murmur Lungs: Normal Breath Sounds, No Wheeze, Rales, Rhonchi Neuro: Alert and responsive, Other (short term memory loss) Abdomen: Soft, Non-Tender Skin: No rashes noted on visualized skin Musculoskeletal: No Chest Wall Tenderness Extremities: No Clubbing, No Cyanosis, No Edema, Normal Pulses Results 02/23/17 03:22 02/23/17 03:22 Active Medications Acetaminophen (Tylenol) 650 mg PO Q6HR PRN PRN Reason: Mild Pain Stop: 08/24/17 11:19 Last Admin: 02/25/17 15:35 Dose: 650 mg Hydrocodone Bitart/Acetaminophen ([place] 5-325 Mg) 1 tab PO Q4HR PRN PRN Reason: Moderate Pain Stop: 08/24/17 11:19 Last Admin: 02/26/17 08:51 Dose: 1 tab Aspirin (Aspirin) 81 mg PO DAILY [facility] Stop: 08/25/17 09:01 Last Admin: 02/26/17 08:51 Dose: 81 mg Citalopram Hydrobromide (Celexa) 40 mg PO HS [facility] Stop: 08/24/17 21:31 Last Admin: 02/25/17 20:04 Dose: 40 mg Diphenhydramine HCl (Benadryl) 25 mg PO HS PRN PRN Reason: Insomnia Stop: 08/24/17 21:01 Metoprolol Tartrate (Lopressor) 5 mg IVP Q6HR PRN PRN Reason: SEE COMMENTS Stop: 08/24/17 11:14 Morphine Sulfate (Morphine Sulfate) 4 mg IVP Q3H PRN PRN Reason: Severe Pain (7-10) Stop: 08/24/17 11:14 Nicotine (Nicoderm) 21 mg TD DAILY [facility] PRN Reason: Protocol Stop: 08/25/17 11:46 Last Admin: 02/26/17 08:51 Dose: 21 mg Nitroglycerin (Nitroglycerin) 0.4 mg SL Q5MIN PRN PRN Reason: Chest Pain Stop: 08/24/17 11:14 Ondansetron HCl (Zofran) 4 mg IVP Q8HR PRN PRN Reason: Nausea And Vomiting Stop: 08/24/17 11:14 Risperidone (Risperdal) 1 mg PO HS [facility] Stop: 08/24/17 21:16 Last Admin: 02/25/17 20:04 Dose: 1 mg Rosuvastatin Calcium (Crestor) 40 mg PO HS [facility] Stop: 08/24/17 21:01 Last Admin: 02/25/17 20:04 Dose: 40 mg Ticagrelor (Brilinta) 90 mg PO BID [facility] Stop: 08/24/17 21:01 Last Admin: 02/26/17 08:51 Dose: 90 mg - Imaging and Cardiology Echo: report reviewed Cardiac cath: report reviewed - EKG Interpretation EKG results cardiology: other (24 hr tele AVG HR 82, SR, no significant pauses or arrhythmias) - VTE Documentation of Mechanical Device: Intermittent pneumatic compression device Consult Discharge Plan - Plan Referrals: Juan M Gomez MD [Primary Care Provider] -
--- NOTE | 2017-02-26 15:38 | Consult Note ---
Date of Encounter: 02/26/17 Time of Encounter: 15:20 Assessment & Recommendation (1) Bipolar disorder Current visit: Yes Status: Acute Assessment & Recommendation: Patient has a history of bipolar disorder. He may also have a history of some lower functioning possibly related to hydrocephalus. He reports he is taking his meds as prescribed. Daughter states he has been taking medication but apparently told the primary team that he had been off his psych meds. I would recommend outpatient psychiatric follow-up in the form of counseling as well as a psychiatry appointment prior to patient leaving the hospital. Patient's daughter is willing to assume his care and make sure he takes his meds as prescribed and gets to his appointments. She is apparently working on moving him into her house so that she can watch him closely. Agree with social work consult to coordinate outpatient care. At this time, he does not meet criteria for inpatient psychiatric stabilization. Qualifiers: Active/Remission status: in remission of unspecified degree Qualified Code( s): F31.70 - Bipolar disorder, currently in remission, most recent episode unspecified History of Present Illness Patient: new to practice Requesting Physician: Raymond Mann MD Reason for consult: History of bipolar disorder. History of present illness: Mr. Preciado is a 61 year old male with a history of bipolar disorder who presented to the hospital with ST elevation MD. Patient reports he cannot remember why he has been admitted to the hospital. He states for the most part his daughter make sure he gets his medications. He does report a history of bipolar disorder and knows that he is supposed to take Celexa and Risperdal on a daily basis. He was also taking Ativan in the past but states he does not take that one right now. Per patient, he has been taking his Celexa and Risperdal as prescribed. He denies mood swings or irritability. He denies depressed mood. He denies recent psychiatric hospitalizations. He denies grandiosity, decreased need for sleep, impulsivity. He denies auditory or visual hallucinations. Patient reports that his old doctor used to be Juan M Gomez but he has not seen them in a while. He states he has had enough refills to get through since his last appointment. He lives alone but reports that his daughter helps him take his medications on a daily basis. Donna Joseph ([phone]) reports that she does have to monitor her father and make sure he takes his medications. She did not report to the medical student that patient was taking his medications and he has refills for these. She is aware that he will need a follow-up appointment. She is working on removing him into her place and will be looking for a bigger home so that they can stay in the same place. She will ensure that he makes into follow-up appointments and takes his medications as prescribed. CC: Raymond Mann MD Past Med Surg Social Fam HX - Past Medical History Medical history: hypertension, seizures - Past Psychiatric History Psychiatric history: Reports: bipolar, previous psychiatric hospitalization Past psychiatric history details: Reported long-standing history of bipolar disorder. No current outpatient treatment and there is some confusion as to whether patient is taking his meds but has been receiving them since he got to the hospital. Family psychiatric history: No Family History of Suicide: None - Past Surgical History Surgical History: angioplasty/stent - Social History Smoking Status: Current every day smoker Packs per day: 1 Smokeless Tobacco Status: No Alcohol use: none Drug use: none Occupational status: disabled Current living situation: Home Activity Level: Independent ambulation - Family History Father Living Status: Age at : 64 Cause of : heart disease Hx Family Cardiac Disorders: Yes Mother Living Status: Cause of : CVA Medications & Allergies Citalopram Hydrobromide [Celexa] 40 mg PO DAILY 03/15/16 [History] risperiDONE [Risperidone] 1 mg PO DAILY 03/15/16 [History] 3 Allergy/AdvReac Type Severity Reaction Status Date / Time No Known Allergies Allergy Verified 03/15/16 10:37 Review of Systems Psychiatric: Denies: depression, anxiety, abnormal sleep pattern, suicidal ideation, homicidal ideation, auditory hallucinations, visual hallucinations, anhedonia, hopelessness, irritability, mood swings Mental Status Exam Patient orientation: Yes Person, Yes Time, Yes Place Level of alertness: Alert Patient appearance: Appropriate Behavior: calm, cooperative Psychomotor activity: Normal Eye contact: Maintains Eye Contact Mood description: Euthymic/stable Affect description: congruent with mood, full range Speech pattern: Normal rate, Normal rhythm, Normal tone Speech volume: Normal Thought process: Intact, [place] Thought content: No Suicidal ideation, No Homicidal ideation, No Overt delusions Perceptual disturbances: No Auditory hallucinations, No Visual hallucinations Attention span: Capable of Focused Attention Memory description: Immediate Intact, Recent Impaired, Remote Impaired Patient reliability: Questionable Historian Intelligence estimate: Below Average Judgment: Limited Insight: Partial Results - Vital Signs Vital signs: Temp Pulse Resp BP Pulse Ox 97.5 F L 75 16 92/66 96 02/26/17 11:00 02/26/17 11:00 02/26/17 11:00 02/26/17 11:00 02/26/17 11:00 - Labs Labs: Laboratory Last Values WBC 13.7 K/mcL (4.3-11.1) H 02/23/17 03:22 RBC 4.47 M/mcL (4.19-5.50) 02/23/17 03:22 Hgb 14.1 g/dL (12.9-16.9) 02/23/17 03:22 Hct 40.6 % (37.5-50.1) 02/23/17 03:22 MCV 90.8 fL (83.0-100.0) 02/23/17 03:22 MCH 31.5 pg (28.0-33.3) 02/23/17 03:22 MCHC 34.7 g/dL (31.6-35.5) 02/23/17 03:22 RDW 12.9 % (11.5-14.5) 02/23/17 03:22 Plt Count 208 K/mcL (140-400) 02/23/17 03:22 MPV 10.4 fL (9.4-12.4) 02/23/17 03:22 Immature Gran % 0.4 % (0-4) 02/23/17 03:22 Seg Neutrophils % 83.0 % 02/23/17 03:22 Lymphocytes % 7.6 % 02/23/17 03:22 Monocytes % 8.8 % 02/23/17 03:22 Eosinophils % 0.0 % 02/23/17 03:22 Basophils % 0.2 % 02/23/17 03:22 Neutrophils # 11.3 K/mcL (1.6-8.9) H 02/23/17 03:22 Lymphocytes # 1.0 K/mcL (0.6-4.6) 02/23/17 03:22 Monocytes # 1.2 K/mcL (0.0-1.3) 02/23/17 03:22 Eosinophils # 0.0 K/mcL (0.0-0.6) 02/23/17 03:22 Basophils # 0.0 K/mcL (0.0-0.2) 02/23/17 03:22 Sodium 136 mEq/L (136-145) 02/23/17 03:22 Potassium 4.0 mEq/L (3.5-4.5) 02/23/17 03:22 Chloride 107 mEq/L (98-109) 02/23/17 03:22 Carbon Dioxide 22 mEq/L (19-29) 02/23/17 03:22 BUN 14 mg/dL (8-26) 02/23/17 03:22 Creatinine 0.91 mg/dL (0.72-1.25) 02/23/17 03:22 Est GFR ( Amer) > 60 (> 60) 02/23/17 03:22 Est GFR (Non-Af Amer) > 60 (> 60) 02/23/17 03:22 BUN/Creatinine Ratio 15 (6-26) 02/23/17 03:22 Glucose 118 mg/dL (70-99) H 02/23/17 03:22 Calculated Osmolality 284 (280-300) 02/23/17 03:22 Calcium 8.9 mg/dL (8.6-10.8) 02/23/17 03:22 Consult Discharge Plan - Plan Referrals: Juan M Gomez MD [Primary Care Provider] -
[2017-02-26] MEDS: risperiDONE 1 MG TABLET PO SCH (20:05)
[2017-02-27 05:43] LABS: Basophils % 0.6 %; Eosinophils # 0.1 K/mcL (0.0-0.6); Eosinophils % 1.2 %; Hematocrit 37.3 % (37.5-50.1); Immature Granulocytes % 0.3 % (0-4); Lymphocytes # 1.3 K/mcL (0.6-4.6); Lymphocytes % 17.9 %; Mean Corpuscular HGB Conc 33.5 g/dL (31.6-35.5); Mean Corpuscular Hemoglobin 30.9 pg (28.0-33.3); Mean Corpuscular Volume 92.1 fL (83.0-100.0); Mean Platelet Volume 10.1 fL (9.4-12.4); Monocytes # 0.8 K/mcL (0.0-1.3); Monocytes % 11.5 %; Neutrophils # 4.9 K/mcL (1.6-8.9); Platelet Count 187 K/mcL (140-400); Red Blood Count 4.05 M/mcL (4.19-5.50); Red Cell Distribution Width 12.8 % (11.5-14.5); Segmented Neutrophils % 68.5 %
[2017-02-27 05:46] LABS: Hemoglobin 12.5 g/dL (12.9-16.9)
[2017-02-27 06:18] LABS: BUN/Creatinine Ratio 9 (6-26); Blood Urea Nitrogen 9 mg/dL (8-26); Calcium 8.6 mg/dL (8.6-10.8); Carbon Dioxide 26 mEq/L (19-29); Chloride 106 mEq/L (98-109); Glucose 95 mg/dL (70-99); Osmolality,Calculated 282 (280-300); Potassium 4.3 mEq/L (3.5-4.5); Sodium 137 mEq/L (136-145); eGFR For African Americans > 60 (> 60); eGFR For Non-African Americans > 60 (> 60)
[2017-02-27] MEDS: Aspirin 81 MG TAB.CHEW PO SCH (08:30)
[2017-02-27] MEDS: Nicotine 21 MG PATCH.TD24 TD SCH (08:30)
[2017-02-27] MEDS: *HR* Ticagrelor 90 MG TABLET PO SCH (08:31)
[2017-02-27] MEDS: *HR* HYDROcodone/Acet 5/325 mg TABLET PO PRN (10:42)
[2017-02-27 10:57] VITALS: BP 100/63
--- NOTE | 2017-02-27 11:00 | Discharge Summary ---
Date of Encounter: 02/27/17 Time of Encounter: 11:00 - Discharge Diagnosis (1) STEMI (ST elevation myocardial infarction) Priority: Primary Status: Acute Qualifiers: Involved coronary artery: LAD coronary artery Qualified Code(s): I21.02 - ST elevation (STEMI) myocardial infarction involving left anterior descending coronary artery (2) Ischemic cardiomyopathy Priority: Secondary Status: Acute (3) CAD (coronary artery disease) Priority: Secondary Status: Acute Qualifiers: Coronary Disease-Associated Artery/Lesion type: [place] artery [place] vs. transplanted heart: squ[place]in heart Associated angina: without angina Qualified Code(s): I25.10 - Atherosclerotic heart disease of [place] coronary artery without angina pectoris - Discharge Medications Prescriptions: Nitroglycerin 0.4 mg SL Q5MIN PRN #30 tab.subl PRN Reason: Chest Pain Aspirin 81 mg PO DAILY #30 tab.chew Nicotine Patch [Nicoderm] 21 mg TD DAILY #30 patch.td24 Rosuvastatin [Crestor] 40 mg PO HS #30 tablet Ticagrelor [Brilinta] 90 mg PO BID #60 tablet Home Medications: Citalopram Hydrobromide [Celexa] 40 mg PO DAILY 03/15/16 [History] risperiDONE [Risperidone] 1 mg PO DAILY 03/15/16 [History] Aspirin 81 mg PO DAILY #30 tab.chew 02/27/17 [Rx] Nicotine Patch [Nicoderm] 21 mg TD DAILY #30 patch.td24 02/27/17 [Rx] Nitroglycerin 0.4 mg SL Q5MIN PRN #30 tab.subl 02/27/17 [Rx] Rosuvastatin [Crestor] 40 mg PO HS #30 tablet 02/27/17 [Rx] Ticagrelor [Brilinta] 90 mg PO BID #60 tablet 02/27/17 [Rx] Allergies/Adverse Reactions: 3 Allergy/AdvReac Type Severity Reaction Status Date / Time No Known Allergies Allergy Verified 03/15/16 10:37 Date of admission: 02/22/17 10:42 Primary care physician: Juan M Gomez MD Consults: 02/22/17 11:13 Consult to Cardiac Rehabilitation-Phase1 [CONS] Routine Comment: Reason for Consult: AMI Call Completed: Yes Consult to Nurse Navigator [CONS] Routine Comment: 02/24/17 13:16 Consult to [facility] [CONS] Routine Reason for SW Consult: assistance with meds 02/26/17 10:28 Consult to Psychiatry [CONS] Routine Consulting Provider: [facility] [place] Reason for Consult: Bipolar, poor insight, safe to d/c? Call Completed: Yes Discharging clinician: Saud Mack Anticipated date of discharge: 02/27/17 - Patient Status Disposition: Home, Self-Care Condition: Fair Functional capacity at discharge: independent ambulation Overall status at discharge: patient is progressing back to baseline - Discharge Instructions Follow Up With: Juan M Gomez MD [Primary Care Provider] - Additional Instructions: RISK FACTORS: STOP SMOKING: If you smoke, STOP. Smoking or tobacco use significantly increases your risk of heart disease because nicotine causes the arteries to narrow or constrict. It also causes fats to stick to the artery. Your chances of having a heart attack are greatly increased if you continue to smoke. For more information, call the education line for smoking cessation 8-295-BGBVXCN EAT A LOW FAT/CHOLESTEROL/SODIUM DIET: This diet may help reduce your chances of having a heart attack. LIFTING: With affected extremity: Avoid bending, pushing off and lifting more than 2 pounds for 24 hours The following 48 hours, avoid lifting anything more than 5 pounds Avoid strenuous activity or repetitive motions ACTIVITY: You may walk or climb stairs as tolerated You can resume sexual activity as tolerated In general, you are encouraged to engage in a minimum of 30 minutes or more of moderate intensity physical activity, such as brisk walking, daily or at least 3 -4 times weekly BATHING Do not submerge the site into water (bath tub, hot tub, swimming pool, dishes) for 1 week. This can be a source for infection into the blood stream. You may shower after 24 hours SITE CARE: After 24 hours, you may remove the dressing and leave the site open to air. Keep the site clean and dry. Clean gently and pat dry. You can expect bruising and tenderness that gradually resolve within a week or two. Return to work as instructed per your physician Resume driving as instructed per physician Keep all scheduled follow up appointments Resume medications as instructed IMPORTANT: If prescribed a Platelet Aggregation Inhibitor such as, Plavix, Brilinta or Effient: Duration of therapy is minimum one year These medications are often used in combination with Aspirin in prevention of future heart attacks Never discontinue unless consult with your Balance Wheel Screw [employer] Driller STROKE (CVA) Risk factors for a stroke are: Age, cigarette smoking, diabetes, excessive alcohol consumption, family history, high blood pressure, overweight, physical inactivity, prior stroke, heart attack, diagnosis of carotid artery stenosis or other artery disease. Warning signs: Sudden numbness or weakness of the face, arm or leg; especially on one side of the body, sudden confusion, trouble speaking or understanding, sudden trouble seeing in one or both eyes, sudden trouble walking, dizziness, loss of balance or coordination, sudden severe headache with no cause. Call 911 or go to the Emergency Room. CONGESTIVE HEART FAILURE: If you have been diagnosed with Congestive Heart Failure (CHF) and your symptoms return, make an appointment with your physician Weigh yourself daily. Notify your physician if you have a weight gain of two or more pounds in one day or five or more pounds in one week. If you experience any difficulty breathing, please call 911 BLEEDING: Although the risk of bleeding is minimal, it can happen. If you have any bleeding from the site, apply firm pressure above the puncture site for 10-15 minutes. If the bleeding does not stop, continue manual pressure and call 911 Contact [facility] ( ) if: You develop a fever greater than 101 degrees Fahrenheit Your site becomes reddened or has any drainage You have an increase in pain or burning at the site or if a large knot forms at the site. If you experience chest pain, shortness of breath, dizziness, or extreme tiredness, stop the activity and rest. Please notify [facility] office if you experience any of these symptoms and they are not relieved by rest please call 911! - Diet and Activity Activity: increase activity as tolerated Diet: low fat, low cholesterol, low salt diet - Hospital Course Hospital course: Mr. Preciado is a 61 year old male that presented as anterolateral STEMI. [facility] with PCI to pLAD and mLCx, EF estimated at 20% on [facility]. Echo EF 25-30% with wall motion abnormalities, mild LVDD, no significant valvular dysfunction. Small pericardial effusion without tamponade. DAPT (ASA and Brilinta) uninterrupted x 1 year. Pt verbalizes understanding. Continue Statin. No BB or ACEi/ARB due to hypotension. Right radial access site healing well. No bleeding, hematoma or ecchymosis noted. Pt denies chest pain this AM. He is having difficulty recalling events. Social work and case management now on board--they contacted daughter who reports pt has had short term memory loss since 2000, has not been getting meds filled due to cost issues. Daughter is trying to get him to move in with her. Hx of psych hospitalizations. Psych consulted, no reason to keep inpt for psych issues, they recommend outpt follow-up. Recheck echo as outpt. Euvolemic on exam. Currently not on BB or ACEi/ARB due to hypotension. Life vest recommended in cath report. No VT has been noted on tele. Unlikely pt would comply with lifevest given his short term memory loss and bipolar, so life vest not ordered. Follow-up as outpt in 1 week--will coordinate. D/C home in stable condition from cardiac standpoint. Time spent discussing smoking cessation with patient: 3 to 10 minutes - Time Spent with Patient Total time spent providing and/or coordinating discharge services: Less than 30 minutes Physical Examination Vital Signs, Last 4 Hours Temp Pulse Resp BP Pulse Ox 02/27/17 10:51 97.8 F 79 16 100/63 97 Vital Signs Temp Pulse Resp BP Pulse Ox 02/27/17 10:51 97.8 F 79 16 100/63 97 02/27/17 06:43 97.6 F 85 16 89/60 94 02/27/17 03:41 98.2 F 78 16 102/58 97 02/26/17 22:59 98.3 F 88 16 96/55 96 02/26/17 19:37 98.6 F 83 16 105/57 96 02/26/17 16:07 98.3 F 74 16 108/51 98 Intake and Output 02/26/17 02/27/17 02/27/17 23:59 07:59 15:59 Intake Total 240 / 240 360 / 360 Balance 240 / 240 360 / 360 Intake: Oral 240 / 240 360 / 360 Other: Meal Dinner Breakfast Percent of Meal Consumed 40% 100% General: Conversant, No Apparent Distress HEENT: Atraumatic, Normocephaly, Mucus Membranes Moist Neck: No JVD, Normal carotid pulses Cardiac: Reg Rate and Rhythm, Normal S1 and S2, No Murmur Lungs: Normal Breath Sounds, No Wheeze, Rales, Rhonchi Neuro: Alert and responsive, No focal deficits noted Abdomen: Soft, Non-Tender Skin: No rashes noted on visualized skin Musculoskeletal: No Chest Wall Tenderness Extremities: No Clubbing, No Cyanosis, No Edema, Normal Pulses - VTE Documentation of Mechanical Device: Intermittent pneumatic compression device
[2017-02-27] MEDS ORDERED: FLUARIX QUAD 2017-18 36MOS UP/PF 0.5 ML SYRINGE IM ONE (11:52)
[2017-02-27] MEDS: Acetaminophen 325 MG TABLET PO PRN (14:26)
== END 2017-02-27 15:53 | disposition home or self-care (01) | DRG 247 ==
LOC: ICNU 10:42 → 2ANU 02-25 06:59
PROVIDERS: ADMIT Emergency Medicine; ATTEND Emergency Medicine

== ENCOUNTER 2017-03-07 22:36 | Inpatient (IN) ==
[2017-03-07] MEDS ORDERED: Aspirin 81 MG TAB.CHEW PO ONE (22:44)
[2017-03-07] MEDS ORDERED: Nitroglycerin 0.4 MG TAB.SUBL SL ONE (22:44)
--- NOTE | 2017-03-07 22:54 | Emergency Department Note ---
Disposition Clinical Impression: STEMI (ST elevation myocardial infarction) Qualifiers: Involved coronary artery: LAD coronary artery Qualified Code(s): I21.02 - ST elevation (STEMI) myocardial infarction involving left anterior descending coronary artery Disposition: Admitted As Inpatient Condition: Critical Time of Disposition: 23:46 General Adult HPI - General Chief complaint: ED Shortness of Breath/Dyspnea Stated complaint: CP Time Seen by Provider: 03/07/17 22:42 Nursing Notes Reviewed: Yes Vital Signs Reviewed: Yes - History of Present Illness HPI Narrative: Mr. Preciado, 61-year-old male, presents from home via EMS for evaluation of chest pain. Onset earlier today and intermittent throughout the day. Duration of 2-3 hours while present. Patient had chest pain in bound per EMS. At this time, he is chest pain-free. Described as lower midsternal sharp stabbing without radiation. Associated with dyspnea and diaphoresis. No nausea or weakness. Patient notes it is identical in character but less severe in intensity and symptoms 2 weeks ago when he had an STEMI 2 stents placed at this facility. Patient was discharged home at that time prescriptions which he has not filled and has not been compliant or taken a single tablet of any medication he was prescribed. Patient is a history of psychiatric illness. When asked why he did not take or fill his medications, he states he thought someone he would bring them to him. He lives by himself in an apartment. Pain Scale: 3 - Related Data Home Medications Medication Instructions Recorded Confirmed Citalopram Hydrobromide [Celexa] 40 mg PO DAILY 03/15/16 02/22/17 risperiDONE [Risperidone] 1 mg PO DAILY 03/15/16 02/22/17 Previous Rx's Medication Instructions Recorded Aspirin 81 mg PO DAILY #30 tab.chew 02/27/17 Nicotine Patch [Nicoderm] 21 mg TD DAILY #30 patch.td24 02/27/17 Nitroglycerin 0.4 mg SL Q5MIN PRN #30 tab.subl 02/27/17 Rosuvastatin [Crestor] 40 mg PO HS #30 tablet 02/27/17 Ticagrelor [Brilinta] 90 mg PO BID #60 tablet 02/27/17 Allergies Allergy/AdvReac Type Severity Reaction Status Date / Time No Known Allergies Allergy Verified 03/15/16 10:37 All systems ED: reviewed and negative except as stated. Past Medical History - Past Medical History Medical history: Reports: hypertension, seizures Surgical history: Reports: angioplasty/stent Psychiatric history: Reports: bipolar, previous psychiatric hospitalization - Social History Smoking Status: Current every day smoker Smokeless Tobacco Status: No Alcohol use: Reports: none Drug use: Reports: none Physical Exam Vital Signs Reviewed General: Patient is alert, oriented, and in no acute distress. HEENT: No facial asymmetry. Head is normocephalic and atraumatic. PERRL, EOMI. oral mucosa moist. Trachea midline. Cardiovascular: Heart regular rate and rhythm without clicks, rubs, gallops, or murmurs. No JVD. PMI nondisplaced. Respiratory: Symmetric chest rise with good respiratory effort. Bilateral breath sounds are clear without wheezing, crackles, or rhonchi. Abdomen: Bowel sounds present normoactive x-4 quadrants. Abdomen is soft, nondistended, and nontender. No organomegaly noted. Neuro: GCS 15. Skin: Warm, dry. Psych: Patient's affect is appropriate for situation. - General General appearance: alert, in no apparent distress Course Course Narrative: Patient presents with symptoms concerning for ACS. He is chest pain-free at this time. His EKG shows ST elevations in leads V2 through V5. Patient was admitted 2 weeks prior and received 2 stents in the proximal LAD and mid left circumflex. Pre-catheter EKG at that time showed ST elevations in 2-3 however leads 4 and 5 today show a change in morphology. There are no records of postcatheterization EKG. There is no troponin from previous admission. Patient is a poor historian and is uncertain as to when his last episode of chest pain was. EMS indicated he had chest pain while in route. Additionally, patient has been noncompliant with his medication and has not been taking his Plavix. There is the real possibility he has clotted his stent. I spoke with the on-call interventionalists, Dr. Rodriguez, [employer] is him images of the patient's EKG and compare EKGs. He advises that we call a code STEMI. We will "related to an heparin at this time. Patient's lab work has returned; he has a troponin of 1.18. Normal renal function. Patient is being taken to the [facility] at this time. Vital Signs Temperature 97.9 F 03/07/17 22:38 Pulse Rate 84 03/07/17 22:38 Respiratory Rate 36 03/07/17 22:38 Blood Pressure 111/74 03/07/17 22:38 O2 Sat by Pulse Oximetry 97 03/07/17 22:38 Temperature 97.9 F 03/07/17 22:38 Pulse Rate 81 03/07/17 23:28 Respiratory Rate 36 03/07/17 23:28 Blood Pressure 121/71 03/07/17 23:28 O2 Sat by Pulse Oximetry 94 03/07/17 23:28 Oxygen Delivery Oxygen Delivery Room Air Medical Decision Making - Lab Data Result diagrams: 03/07/17 22:48 03/07/17 22:48 Lab Results 03/07/17 03/07/17 03/07/17 Range/Units 22:48 22:48 22:48 WBC 14.2 H (4.3-11.1) K/mcL RBC 3.91 L (4.19-5.50) M/mcL Hgb 12.0 L (12.9-16.9) g/dL Hct 35.0 L (37.5-50.1) % MCV 89.5 (83.0-100.0) fL MCH 30.7 (28.0-33.3) pg MCHC 34.3 (31.6-35.5) g/dL RDW 12.6 (11.5-14.5) % Plt Count 433 H (140-400) K/mcL MPV 9.9 (9.4-12.4) fL Immature Gran % 0.8 (0-4) % Seg Neutrophils % 86.1 % Lymphocytes % 4.9 % Monocytes % 7.6 % Eosinophils % 0.2 % Basophils % 0.4 % Neutrophils # 12.2 H (1.6-8.9) K/mcL Lymphocytes # 0.7 (0.6-4.6) K/mcL Monocytes # 1.1 (0.0-1.3) K/mcL Eosinophils # 0.0 (0.0-0.6) K/mcL Basophils # 0.1 (0.0-0.2) K/mcL Immature Plt Fraction 4.4 (1.1-6.1) % PT 14.7 H (9.4-12.1) Seconds INR 1.4 APTT 28.8 (26.0-36.0) Seconds Sodium 128 L (136-145) mEq/L Potassium 4.3 (3.5-4.5) mEq/L Chloride 95 L (98-109) mEq/L Carbon Dioxide 22 (19-29) mEq/L BUN 12 (8-26) mg/dL Creatinine 0.95 (0.72-1.25) mg/dL Est GFR ( Amer) > 60 (> 60) Est GFR (Non-Af Amer) > 60 (> 60) BUN/Creatinine Ratio 13 (6-26) Glucose 101 H (70-99) mg/dL Calculated Osmolality 266 L (280-300) Calcium 8.7 (8.6-10.8) mg/dL Magnesium 1.7 (1.6-2.6) mg/dL Troponin I (0-0.03) ng/mL 03/07/17 Range/Units 22:48 WBC (4.3-11.1) K/mcL RBC (4.19-5.50) M/mcL Hgb (12.9-16.9) g/dL Hct (37.5-50.1) % MCV (83.0-100.0) fL MCH (28.0-33.3) pg MCHC (31.6-35.5) g/dL RDW (11.5-14.5) % Plt Count (140-400) K/mcL MPV (9.4-12.4) fL Immature Gran % (0-4) % Seg Neutrophils % % Lymphocytes % % Monocytes % % Eosinophils % % Basophils % % Neutrophils # (1.6-8.9) K/mcL Lymphocytes # (0.6-4.6) K/mcL Monocytes # (0.0-1.3) K/mcL Eosinophils # (0.0-0.6) K/mcL Basophils # (0.0-0.2) K/mcL Immature Plt Fraction (1.1-6.1) % PT (9.4-12.1) Seconds INR APTT (26.0-36.0) Seconds Sodium (136-145) mEq/L Potassium (3.5-4.5) mEq/L Chloride (98-109) mEq/L Carbon Dioxide (19-29) mEq/L BUN (8-26) mg/dL Creatinine (0.72-1.25) mg/dL Est GFR ( Amer) (> 60) Est GFR (Non-Af Amer) (> 60) BUN/Creatinine Ratio (6-26) Glucose (70-99) mg/dL Calculated Osmolality (280-300) Calcium (8.6-10.8) mg/dL Magnesium (1.6-2.6) mg/dL Troponin I 1.82 H* (0-0.03) ng/mL Critical Care Time Critical Care Time: Yes Total Critical Care Time: 35 Attestation: Critical care performed: Time is exclusive of separately billable procedures. Time includes: direct patient care, patient reassessment, coordination of patient care, interpretation of data (laboratory data, radiology data, and respiratory data), review of patient's medical records, medical consultation and documentation of patient care. Procedures included in critical care time: Procedures excluded from critical care time: Attestation Statement - Attestation Attestation: IKoby MD, personally evaluated this patient and discussed their management with the resident physician. I reviewed the resident's note and agree with the documented findings, medical decision making, and plan of care. 61-year-old male who was here 13 days ago with a STEMI and had a heart catheter and stents placed. He presents tonight by ambulance with a complaint of intermittent left sided sharp chest pain off and on today. Also some increased shortness of breath. He denies any chest pain on arrival. His EKG does show some ST elevation in V2 through V5 which is in the same area and very similar to his findings 2 weeks ago. After consultation with the preventive medicine physician and review of the EKG findings to decision was made to go ahead and call a STEMI alert. Patient is very poor historian. He has some psychiatric issues and is really unable to provide much specific history. He is a smoker and continues to smoke. He apparently did not get his prescriptions filled when he was discharged here a few weeks ago and has not been taking the medications prescribed. On examination patient is a well-developed well-nourished male in no acute distress. He is alert and oriented. There is no cyanosis or diaphoresis. Chest is nontender to palpation. Sounds are decreased bilaterally with some scattered bilateral rales. No wheezes noted. Heart regular rate and rhythm. Abdomen soft and nontender with normal bowel sounds. EKG shows ST elevation in V2 through V5. Similar to previous EKG findings. Chest x-ray shows interval development of pulmonary edema with increased density in the right upper lobe, cannot rule out pneumonia. Labs reviewed. Troponin 1.82. Interventionalists, Dr. Rodriguez, was consulted and saw the patient in the emergency department and patient was taken to the cardiac catheter lab.
[2017-03-07 22:56] LABS: Basophils # 0.1 K/mcL (0.0-0.2); Basophils % 0.4 %; Eosinophils % 0.2 %; Immature Granulocytes % 0.8 % (0-4); Immature Platelets 4.4 % (1.1-6.1); Lymphocytes # 0.7 K/mcL (0.6-4.6); Lymphocytes % 4.9 %; Mean Corpuscular HGB Conc 34.3 g/dL (31.6-35.5); Mean Corpuscular Hemoglobin 30.7 pg (28.0-33.3); Mean Corpuscular Volume 89.5 fL (83.0-100.0); Mean Platelet Volume 9.9 fL (9.4-12.4); Monocytes # 1.1 K/mcL (0.0-1.3); Monocytes % 7.6 %; Neutrophils # 12.2 K/mcL (1.6-8.9); Platelet Count 433 K/mcL (140-400); Red Blood Count 3.91 M/mcL (4.19-5.50); Red Cell Distribution Width 12.6 % (11.5-14.5); Segmented Neutrophils % 86.1 %
[2017-03-07] MEDS ORDERED: *HR* Ticagrelor 90 MG TABLET ONE (23:01)
[2017-03-07] MEDS ORDERED: *HR* Heparin 5,000 UNIT/ML VIAL ONE (23:01)
[2017-03-07] MEDS ORDERED: 0.9 % Sodium Chloride 1,000 ML ONE (23:01)
[2017-03-07] MEDS ORDERED: *HR* Heparin 5,000 UNIT/ML VIAL IVP ONE (23:02)
[2017-03-07] MEDS ORDERED: *HR* Heparin 5,000 UNIT/ML VIAL IVP PRN ×2 (23:02)
[2017-03-07 23:05] LABS: INR 1.4; Prothrombin Time 14.7 Seconds (9.4-12.1)
[2017-03-07] MEDS ORDERED: 0.9 % Sodium Chloride 500 ML IVC ONE (23:05)
[2017-03-07 23:07] LABS: BUN/Creatinine Ratio 13 (6-26); Blood Urea Nitrogen 12 mg/dL (8-26); Calcium 8.7 mg/dL (8.6-10.8); Carbon Dioxide 22 mEq/L (19-29); Chloride 95 mEq/L (98-109); Glucose 101 mg/dL (70-99); Osmolality,Calculated 266 (280-300); Potassium 4.3 mEq/L (3.5-4.5); Sodium 128 mEq/L (136-145); eGFR For African Americans > 60 (> 60); eGFR For Non-African Americans > 60 (> 60)
[2017-03-07 23:08] LABS: Activated Partial Thrombo Time 28.8 Seconds (26.0-36.0)
[2017-03-07] MEDS: *HR* Ticagrelor 90 MG TABLET PO ONE (23:11)
[2017-03-07] MEDS ORDERED: Heparin 25,000 UNIT/500 ML D5W 25,000 UNIT/500 ML MLS IVC SCH (23:15)
[2017-03-07 23:16] LABS: Magnesium 1.7 mg/dL (1.6-2.6)
[2017-03-07] MEDS ORDERED: Heparin 1,000 UNITS/500 mL NS 500 ML ONE (23:22)
[2017-03-07] MEDS ORDERED: *HR* Heparin 10,000 UNIT/10 ML VIAL ONE (23:22)
[2017-03-07] MEDS ORDERED: Nitroglycerin 1,000 MCG/10 ML VIAL IV ONE (23:22)
--- NOTE | 2017-03-07 23:35 | Cardiology History & Physical ---
Date of Encounter: 03/07/17 Time of Encounter: 23:31 Assessment and Plan (1) Non-ST elevation (NSTEMI) myocardial infarction Current Visit: Yes Status: Acute The assessment and plan as outlined above was discussed with the patient and/or family members who expressed understanding and agreement. All questions were answered. 61-year-old male presents to the emergency department for chest pain. This benefits alternatives discussed with the patient's sister. Due to ST changes similar to his previous anterolateral ST elevation by cardiac friction and noncompliance with medication with a positive troponin we will pursue left heart catheter throughout some thrombosis and reinfarction. History of Present Illness Chief complaint: Chest Pain HPI: Mr. Preciado is a 61 year old male presents to the emergency department for chest pain. Patient has psychiatric disorders including bipolar disorder. Patient recently 04/24/2017 presented with an anterolateral ST elevation myocardial infarction. He has not filled his medications hence has not taken his aspirin or Plavix. He is a very poor historian was describing chest pain until prior to arrival to the emergency department. He currently states he has no chest pain EKG shows ST elevations anterolateral similar to his previous EKG. Due to his noncompliance and being a poor historian with EKG changes similar to his past EKG had a positive troponin despite being chest pain free I do duarte reasonable to perform a left heart catheter to ensure patency of his stents. Past Med Surg Social Fam HX - Past Medical History Medical history: hypertension, seizures Psychiatric history: bipolar, previous psychiatric hospitalization - Past Surgical History Surgical History: angioplasty/stent - Social History Smoking Status: Current every day smoker Smokeless Tobacco Status: No Alcohol use: none Drug use: none - Family History Father Living Status: Hx Family Cardiac Disorders: Yes Mother Living Status: Medications and Allergies Citalopram Hydrobromide [Celexa] 40 mg PO DAILY 03/15/16 [History] risperiDONE [Risperidone] 1 mg PO DAILY 03/15/16 [History] Aspirin 81 mg PO DAILY #30 tab.chew 02/27/17 [Rx] Nicotine Patch [Nicoderm] 21 mg TD DAILY #30 patch.td24 02/27/17 [Rx] Nitroglycerin 0.4 mg SL Q5MIN PRN #30 tab.subl 02/27/17 [Rx] Rosuvastatin [Crestor] 40 mg PO HS #30 tablet 02/27/17 [Rx] Ticagrelor [Brilinta] 90 mg PO BID #60 tablet 02/27/17 [Rx] 3 Allergy/AdvReac Type Severity Reaction Status Date / Time No Known Allergies Allergy Verified 03/15/16 10:37 All Systems Review: A 10-system review of systems was performed and is negative for pertinent findings except as documented above in the HPI. Physical Examination Vital Signs, Last 4 Hours Temp Pulse Resp BP Pulse Ox 03/07/17 23:28 81 36 121/71 94 03/07/17 23:15 85 22 110/67 96 03/07/17 22:45 96 03/07/17 22:38 97.9 F 84 36 111/74 97 Results 03/07/17 22:48 03/07/17 22:48 Lab Results 03/07/17 03/07/17 03/07/17 22:48 22:48 22:48 WBC 14.2 H Hgb 12.0 L Hct 35.0 L Plt Count 433 H INR 1.4 APTT 28.8 Sodium 128 L Potassium 4.3 Chloride 95 L Carbon Dioxide 22 BUN 12 Creatinine 0.95 Glucose 101 H Calcium 8.7 Magnesium 1.7 Troponin I 03/07/17 22:48 WBC Hgb Hct Plt Count INR APTT Sodium Potassium Chloride Carbon Dioxide BUN Creatinine Glucose Calcium Magnesium Troponin I 1.82 H*
[2017-03-07] MEDS ORDERED: *HR* FentaNYL (PF) 100 MCG/2 ML VIAL ONE (23:43)
[2017-03-07] MEDS ORDERED: *HR* Midazolam HCl 2 MG/2 ML VIAL ONE (23:43)
[2017-03-07] MEDS ORDERED: *HR* Morphine 2 MG/ML SYRINGE ONE (23:48)
[2017-03-07] MEDS ORDERED: Furosemide 40 MG/4 ML VIAL ONE (23:49)
[2017-03-08] MEDS ORDERED: *HR* Morphine 2 MG/ML SYRINGE IVP PRN ×2 (00:02→11:48)
--- NOTE | 2017-03-08 00:29 | Invasive Diagnostic Lab Proc ---
Name: Benjie Preciado Date of Study: 03/07/2017 Date: 1955 Ht: 72.8in Medical Record#: [id number] Age: 61 Wt: 200.62lb Gender: Male BSA: 2.15 Order #: [id number] BMI: 26.59 Physicians Procedure Physician: Harini Rodriguez MD Referring MD: Referring MD: Staff Name Position Time In Heriberto Betts RT (R) Scrub 11:40 PM Cecile Vallecillo RN Monitor 11:41 PM Westley Corea RN Heating And Cooling Technician 11:41 PM Indications Indication Non-Stemi Procedures Performed Procedure L HRT ARTERY/VENTRICLE ANGIO Pre-Procedure Checklist Informed consent is complete signed and on chart. H&P is on chart. ID band is on and ID verified with patient. Patient NPO for procedure The procedure was described for the patient and questions were answered. Blood Pressure: 110/67 ECG is on chart. Rhythm: NSR Plan of Care Patient will tolerate the procedure without complications. Adequate level of comfort will be maintained. Hemodynamics will remain stable Patient will recover from procedure without complications. Respiratory function will be maintained. Cardiac rhythm will remain stable. Patient temperature will be maintained. Patient and/or family have verbalized understanding of the procedure. Patient Education Intravenous Access Time IV Size Location DC'd Fluid/Drip Rate Units RN 11:30 PM 18g 1 1/4" Patent On Arrival Lt Antecubital 0.9NaCl 25 ml/hr Westley Corea RN 11:30 PM 20g 1 1/4" Patent On Arrival Rt Antecubital Allergies No Known Allergies Vital Signs Time BP (mmHg) HR (bpm) O2 Sat. RR (bpm) LOC 11:31 PM 110 / 67 85 96 % 22 5 = Fully awake and oriented or at pre-proc level 11:41 PM / % 5 = Fully awake and oriented or at pre-proc level 11:41 PM 116 / 66 86 94 % 36 11:46 PM 111 / 75 83 98 % 16 11:51 PM 103 / 62 88 91 % 47 11:56 PM 114 / 60 84 93 % 27 11:41 PM / % 4 = Oriented but drowsy Procedural Medications Time Medication Dose Units Method Given By 11:41 PM Oxygen 2 L/min nasal cannula Westley Corea RN 11:41 PM Lidocaine 2% 10 ml Subcutaneous Harini Rodriguez MD 11:44 PM Versed 1 mg Intravenous Westley Corea RN 11:44 PM Fentanyl 50 mcg Intravenous Anmol, Westley BENOIT 11:47 PM Morphine 1 mg Intravenous Anmol, Westley BENOIT 11:55 PM Lasix 40 mg Intravenous Westley Corea RN ASA Classification: Emergent Procedure: ASA score is assumed Glenn Score Preprocedure Postprocedure Activity 2- Moves 4 extremities sustained head lift Activity 2- Moves 4 extremities sustained head lift Circulation 2- SBP +/= 20 points of pre-anesthetic level Circulation 2- SBP +/= 20 points of pre-anesthetic level Consciousness 2- Awake and alert oriented x 3 Consciousness 2- Awake and alert oriented x 3 O2 Saturation 2- Able to maintain O2 satruation of 92% on room air O2 Saturation 2- Able to maintain O2 satruation of 92% on room air Respiratory 2- Able to deep breathe and cough well Respiratory 2- Able to deep breathe and cough well Total Score 10 Total Score 10 Contrast Agent: Isovue Diagnostic Contrast: 83 ml Total Contrast: 83 ml Fluoro Dose: 289 mGy Procedure Log Time Note Enter By 11:28 PM CathStat 11:34 PM Pt arrived [facility] woven 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 [facility] 11:34 PM Procedure start 23:34 [facility] 11:40 PM Vitals capture started with the following parameters, Patient=Adult, Interval=5 min, Initial Tojqlhqd=704 mmHg, Deflation Rate=5 mmHg, Cuff placed on Right Arm 11:40 PM Heriberto Betts RT (R) Position: Scrub Time in: 23:40 [facility] PM Cecile Vallecillo RN Position: Monitor Time in: :41 shonda 11:41 PM Westley Corea RN Position: Heating And Cooling Technician Time in: 23:41 [facility] 11:41 PM Patient charges- Angio tray pack, Navilyst 3mm J, Pulse Oximetry and ACIST tubing and transducer [facility] 11:41 PM Case Delayed No lparsley 11:41 PM HR=86 bpm, ZNPO=148/66 mmhg, SpO2=94.0 %, Resp=36 B/min, Comment=NSR 11: PM Hair removed from procedure site in emergency department using clippers. Bilateral groin prepped with Chloraprep by Cecile Vallecillo RN, safety strap applied then patient was draped. Skin intact. [facility] : PM Time: :41 Oxygen on at 2 L/min per nasal cannula by Westley Corea RN [facility] PM Time: 23:41 Patient comfortable and pain free: Yes [facility] PM Time: :41LOC: 5 = Fully awake and oriented or at pre-proc level [facility] : PM Clinical Presentation: STEMI or equivalent [facility] : PM Time out performed according to hospital policy [facility] 44 PM Time: : 10 ml Lidocaine 2% to right groin Subcutaneous Given by Harini Rodriguez MD [facility] :44 PM Access obtained by percutaneous puncture. 6Fr 10cm Terumo [place] sheath placed in right Femoral artery. [id number] [facility] 11:44 PM Time: 23:44 Versed 1 mg Intravenous Given by Westley Corea RN 44 PM Time: 23:44 Fentanyl 50 mcg Intravenous Given by Westley Corea RN 11:45 PM 6Fr XB LAD 3.5 [place] Bright-Tip guide catheter was used to cannulate the PCI vessel successfully. reused? No [facility] :45 PM 0.035 145cm Navilyst 3mmJ wire [id number] [facility] 11:45 PM LCA angiography performed in multiple views. [facility] 11:45 PM Recorded Pressure: Ao, HR=81, Condition=Condition 1 (Aorta) Ao 83/57/69 11:46 PM HR=83 bpm, GFWZ=629/75 mmhg, SpO2=98.0 %, Resp=16 B/min, Comment=NSR 11:47 PM Catheter removed [facility] 11:47 PM 5Fr FR 4 catheter inserted over the wire [facility] 11:47 PM RCA angiography performed in multiple views. [facility] 11:48 PM Time: 23:47 Morphine 1 mg Intravenous Given by Westley Corea RN 11:48 PM Recorded Pressure: Ao, HR=97, Condition=Condition 1 (Aorta) Ao 83/66/74 11:49 PM [facility] 11[facility] PM 5Fr Pigtail catheter inserted over the wire C [facility] 11:49 PM Catheter selectively placed in left ventricle pressures obtained lparsley 11:50 PM Coronary Dominance: right lparsley 11:50 PM Lesion found in Mid LAD. Pre Stenosis: 60 lparsley 11:51 PM Pressure channel 1 zero failed. 11:51 PM HR=88 bpm, NPWD=364/62 mmhg, SpO2=91.0 %, Resp=47 B/min, Comment=NSR 11:51 PM Recorded Pressure: LV, HR=88, Condition=Condition 1 (Left Ventricle) LV 82/17/28 11:51 PM Bolus angiogram of left Ventricle complete: 10 ml/sec for a total of 20 mls lparsley 11:51 PM Recorded Pressure: LV, Ao, HR=90, Condition=Condition 1 (Left Ventricle) LV 82/35/36, (Aorta) Ao 88/69/79 11:52 PM [facility] 11:53 PM Bolus angiogram of right Femoral complete: 4 ml/sec for a total of 7 mls [facility] 11:53 PM Procedure completed at 23:53 [facility] 11:55 PM Sign out completed: Radiation Dose 289.29 mGy Fluoro Time: 1.8 Isovue 370 - 200ml contrast 83 ml given by Harini Rodriguez MD. Complications: NoneCardiac Rehab Consult needed: YesConfirmed administered medications: Yes [facility] 11:55 PM Time: 23:55 Lasix 40 mg Intravenous Given by Westley Corea RN [facility] 11:56 PM HR=84 bpm, UFRI=594/60 mmhg, SpO2=93.0 %, Resp=27 B/min, Comment=NSR 11:56 PM Isovue 370 - 200ml,1 Bottle(s) used. [facility] 11:56 PM Time: 23:41LOC: 4 = Oriented but drowsy [facility] 11:56 PM Time: 23:41 Patient comfortable and pain free: Yes [facility] 11:58 PM Arterial sheath pulled, Angio-seal closure device used and was Successful [id number] S/N. [facility] 11:58 PM Post ECG NSR [facility] 11:58 PM Post Blood Pressure 110/67 lparsley 11:58 PM 23:58 Post Pulses Bilateral DP & PT 1+ lparsley 11:58 PM Information taught Cardiac Cath and Angioseal lparsley 11:58 PM Education needs Procedure, Plan of Care, and Safe & Effective Use of Medications lparsley 11:59 PM Learning barriers :None lparsley 11:59 PM Education Methods Verbal [facility] 11:59 PM Education evaluation Able to repeat information lparsley 11:59 PM Site status No bleeding/hematoma - Rt Groin as reported by Heriberto Betts RT (R) at 23:59 lparsley 11:59 PM Opsite applied lparsley 12:03 AM Report given to Jasmyn BENOIT Pt taken to ICU Room #7. 00:02 lparsley 12:04 AM Plavix, Effient or Brilinta given Yes lparsley 12:04 AM Delay to floor No lparsley 12:04 AM Patient out of room: 00:04 lparsley 12:05 AM Family placed in holding area. lparsley 12:05 AM Complications: None lparsley 12:05 AM Fluoro Time: 1.8 [facility] 12:05 AM Isovue 370 - 200ml contrast 83 ml given by Harini Rodriguez MD. lparsley 12:05 AM Radiation Dose 289.29 mGy lparsley 12:06 AM Lesion found in Distal Circumflex. Pre Stenosis: 40 lparsley 12:06 AM Lesion found in Proximal RCA. Pre Stenosis: 25 Pre CAM Flow: lparsley 12:07 AM Mid/Distal Left Anterior Descending Coronary Artery and diagonal branches with 60% stenosis. lparsley 12:07 AM Circumflex, Obtuse Marginal, Left Posterior Descending, and Left Posterolateral Coronary Arteries with 40 % stenosis. lparsley 12:07 AM Right Coronary, Right Posterior Descending Arteries with Right Posterolateral and Acute Marginal branches with 25 % stenosis. [facility] Complications Complication None Hemodynamics Pressures Site Systolic/A Wave Diastolic/V Wave Mean AO 83 57 69 AO 83 66 74 LV 82 17 28 LV 82 35 36 AO 88 69 79 Post Procedure Information Blood Pressure: 110/67 mmHg Rhythm: NSR Post procedural instructions were given Closure Device Time Device Success/Fail 03/08/2017 11:58:00 PM Angio-Seal VIP Successful Site Checks Time Location Status Staff Sheath In? Note 11:59 PM Rt Groin No bleeding/hematoma Heriberto Betts RT (R) Pulses Time Site Pre-Procedure Post-Procedure Note 03/07/2017 11:40:00 PM Bilateral DP & PT 1+ 11:58:00 PM Bilateral DP & PT 1+ Updated by Cecile Vallecillo RN on 03/08/2017 12:12:28 AM electronically signed on 03/08/2017 12:14:17 AM with status of Final
[2017-03-08] MEDS: *HR* Ticagrelor 90 MG TABLET PO ONE (01:38)
[2017-03-08 01:40] LABS: Basophils % 0.3 %; Eosinophils % 0.3 %; Hematocrit 36.2 % (37.5-50.1); Hemoglobin 12.5 g/dL (12.9-16.9); Immature Granulocytes % 0.5 % (0-4); Lymphocytes # 0.9 K/mcL (0.6-4.6); Lymphocytes % 7.5 %; Mean Corpuscular HGB Conc 34.5 g/dL (31.6-35.5); Mean Corpuscular Hemoglobin 29.8 pg (28.0-33.3); Mean Corpuscular Volume 86.4 fL (83.0-100.0); Mean Platelet Volume 9.9 fL (9.4-12.4); Monocytes # 0.8 K/mcL (0.0-1.3); Monocytes % 7.1 %; Neutrophils # 9.9 K/mcL (1.6-8.9); Platelet Count 406 K/mcL (140-400); Red Blood Count 4.19 M/mcL (4.19-5.50); Red Cell Distribution Width 12.7 % (11.5-14.5); Segmented Neutrophils % 84.3 %
[2017-03-08 01:52] LABS: BUN/Creatinine Ratio 13 (6-26); Blood Urea Nitrogen 12 mg/dL (8-26); Calcium 8.6 mg/dL (8.6-10.8); Carbon Dioxide 20 mEq/L (19-29); Chloride 95 mEq/L (98-109); Glucose 97 mg/dL (70-99); Osmolality,Calculated 268 (280-300); Sodium 129 mEq/L (136-145); eGFR For African Americans > 60 (> 60); eGFR For Non-African Americans > 60 (> 60)
[2017-03-08] MEDS ORDERED: Aspirin 81 MG TAB.CHEW PO SCH (09:00)
--- NOTE | 2017-03-08 09:55 | Internal Medicine Consult Note ---
Date of Encounter: 03/08/17 Time of Encounter: 09:53 - Assessment and Plan (1) Healthcare-associated pneumonia Current Visit: Yes Status: Acute Assessment and plan: Healthcare associated pneumonia present upon admission Start cefepime and Levaquin, consider vancomycin if the patient's blood pressure drops Check for pneumococcus and legionella antigens inuring Blood cultures, sputum cultures Thank you for allowing us to participate in the care of this patient. Please call with any questions (2) Hyponatremia Current Visit: Yes Status: Acute Assessment and plan: Unclear etiology, may order urine sodium and osmolality Sometimes legionella is associated with hyponatremia (3) Non-ST elevation (NSTEMI) myocardial infarction Current Visit: Yes Status: Acute Assessment and plan: Treated by cardiology Continue aspirin and Plavix May ordered lipid panel (4) Bipolar disorder Current Visit: No Status: Acute Qualifiers: Active/Remission status: in remission of unspecified degree Qualified Code( s): F31.70 - Bipolar disorder, currently in remission, most recent episode unspecified (5) CAD (coronary artery disease) Current Visit: No Status: Acute Qualifiers: Coronary Disease-Associated Artery/Lesion type: [place] artery [place] vs. transplanted heart: [place] heart Associated angina: without angina Qualified Code(s): I25.10 - Atherosclerotic heart disease of [place] coronary artery without angina pectoris (6) Ischemic cardiomyopathy Current Visit: No Status: Acute Assessment and plan: ejection fraction of 20% Consider Lasix for possible acute pulmonary edema (7) Hypertension Current Visit: No Status: Chronic Qualifiers: Hypertension type: essential hypertension Qualified Code(s): I10 - Essential (primary) hypertension Internal Medicine - CN: HPI - Data of Consult Patient: new to practice Consult date: 03/08/17 Requesting Physician: Keya Schaeffer DO - Consult Narrative Reason for consult: Pneumonia History of present illness: Mr. Preciado is a 61 year old male with a past medical history of CAD, tobacco use , seizures, ischemic myopathy with an ejection fraction of 20% who was recently discharged from this hospital on February 27 after being diagnosed with a STEMI, came to the emergency room back complaining of chest pain. Apparently he is very noncompliant with his medications and was not taking his Brilinta and his aspirin. His troponin was 1.82, was diagnosed with a non-STEMI this time sodium is 128/129 platelets 433 white blood cell count 14.2 heart rate is 90 and blood pressure 91/59. Chest x-ray showed right upper lobe opacity also pulmonary edema and bilateral small pleural effusions. The patient says that he has been coughing minimally, is a very poor historian, no evidence of fevers. The cardiology team has asked us to consult on this patient for possible pneumonia. Past Med Surg Social Fam HX - Past Medical History Medical history: asthma, coronary artery disease (Status post stents/drug- eluting stent with PCI to the proximal LAD and mid left circumflex), hypertension, kidney stones, seizures, other (Tobacco use, ischemic cardiomyopathy with an ejection fraction of 20%, echocardiogram showed an ejection fraction of 25-30%) Psychiatric history: bipolar, depression, previous psychiatric hospitalization - Past Surgical History Surgical History: angioplasty/stent - Social History Smoking Status: Current every day smoker Packs per day: 0.5 Smokeless Tobacco Status: No Alcohol use: none Drug use: none - Family History Father Living Status: Hx Family Cardiac Disorders: Yes Mother Living Status: - Additional Family History Additional family history: Father with heart disease and mother with CVA Review of systems: No chest pain, is still short of breath, no fevers, no sick contacts. Other systems out of the 10 reviewed were negative Internal Medicine - CN: Meds Citalopram Hydrobromide [Celexa] 40 mg PO DAILY 03/15/16 [History] risperiDONE [Risperidone] 1 mg PO DAILY 03/15/16 [History] Aspirin 81 mg PO DAILY #30 tab.chew 02/27/17 [Rx] Nitroglycerin 0.4 mg SL Q5MIN PRN #30 tab.subl 02/27/17 [Rx] Rosuvastatin [Crestor] 40 mg PO HS #30 tablet 02/27/17 [Rx] Ticagrelor [Brilinta] 90 mg PO BID #60 tablet 02/27/17 [Rx] 3 Allergy/AdvReac Type Severity Reaction Status Date / Time No Known Allergies Allergy Verified 03/15/16 10:37 Internal Medicine - CN: Exam - Constitutional Vitals: Temp Pulse Resp BP Pulse Ox 98.0 F 90 17 93/56 95 03/08/17 07:34 03/08/17 06:00 03/08/17 06:00 03/08/17 06:00 03/08/17 06:00 General appearance IM: Present: A&O X 3 - Head Head exam: Present: atraumatic, normal inspection - Eye Eye exam: Present: EOMI, normal appearance Pupils: Absent: irregular, miosis - ENT ENT exam: Present: mucous membranes moist - Neck Neck exam general surgery: Present: full ROM, normal inspection. Absent: lymphadenopathy - Respiratory Respiratory exam: Present: decreased breath sounds (Decreased breath sounds in the right upper lobe, minimal fine bibasilar crackles ) - Cardiovascular Cardiovascular exam IM: Present: +S1, +S2. Absent: clicks, diastolic murmur, irregular rhythm, tachycardia - GI/Abdominal GI/Abdominal exam IM: Present: distended, normal bowel sounds. Absent: guarding , hernia, tenderness - Extremities Exam Extremities exam IM: Present: full ROM. Absent: calf tenderness, joint swelling - Expanded Lower Extremities Exam Hip exam: Absent: abrasion, crepitus, deformity, dislocation, ecchymosis Neuro vascular tendon exam: Absent: foot drop, motor deficit, pallor, pulse deficit, sensory deficit - Neurological Exam Neurological exam: Present: alert, CN II-XII intact, oriented X3. Absent: altered Internal Medicine - CN: Reslt - Labs CBC & Chem 7: 03/08/17 01:28 03/08/17 01:28 Labs: Short CBC 03/08/17 Range/Units 01:28 WBC 11.8 H (4.3-11.1) K/mcL Hgb 12.5 L (12.9-16.9) g/dL Hct 36.2 L (37.5-50.1) % Plt Count 406 H (140-400) K/mcL Neutrophils # 9.9 H (1.6-8.9) K/mcL BMP 03/08/17 01:28 Sodium 129 L Potassium 4.0 Chloride 95 L Carbon Dioxide 20 BUN 12 Creatinine 0.89 Glucose 97 Calcium 8.6 - ABG Interpretation ABG results: PT/INR, D-dimer PT 14.7 Seconds (9.4-12.1) H 03/07/17 22:48 Consult Discharge Plan - Plan Referrals: Juan M Gomez MD [Primary Care Provider] -
[2017-03-08] MEDS ORDERED: Cefepime HCl 1,000 MG in D5% in Water (Mini-Bag+) 100 ML IVPB SCH (10:00)
[2017-03-08] MEDS ORDERED: Levofloxacin 750 MG/150 ML 750 MG/150 ML BAG IVPB SCH (10:00)
[2017-03-08] MEDS ORDERED: Vancomycin 1,250 MG in D5% in Water 250 ML IVPB ONE (10:14)
--- NOTE | 2017-03-08 10:21 | Cardiology Progress Note ---
Date of Encounter: 03/08/17 Time of Encounter: 10:19 Assessment and Plan (1) Non-ST elevation (NSTEMI) myocardial infarction Current Visit: Yes Status: Acute Presented with EKG changes concerning for persistent ST elevation from recent acute [place]. Troponin elevated up to 1.58. Underwent emergent LHC that showed patent stents. There was mild-moderate non- obstructive disease remaining. Likely type II [place] in the setting of pneumonia. Hospitalist consulted. There is also concern of patient not being able to take medications. Discussed with Dr. Rodriguez, change brilinta to plavix. Load with 600 mg and start 75 mg daily. Continue asa and statin. No bb due to hypotension. NTG PRN pain. He is already enrolled in phase I cardiac rehab. Ok to step doen to 2N or 2NE. (2) Ischemic cardiomyopathy Current Visit: No Status: Acute TTE 02/22/17_Severe LV systolic dysfunction, LVEF 25-30%. There are regional wall motion abnormalities, see diagram below. Mild left ventricular diastolic dysfunction. Normal right ventricular size and function. No significant valvular dysfunction. Mild pulmonary hypertension. Estimated RVSP = 38 mmHg. There is a small pericardial effusion present. There is no echocardiographic evidence of tamponade. Check limited TTE. CXR shows pulmonary edema and bilateral pleural effusions. Mild fluid overload noted during LHC. Patient given IV lasix. No significant fluid noted on exam today. Net negative 2950. Strict I&O and daily weights. Low sodium diet. No bb or susanna-inhibitor secondary to hypotension. Will continue to monitor. (3) CAD (coronary artery disease) Current Visit: No Status: Acute S/p recent STEMI 02/22/17. LHC with PCI to pLAD and mLCx, EF 20%. Continue asa, plavix, and statin. Concern for compliance with meds. Needs home health or ECF. general warehouse worker consulted. Qualifiers: Coronary Disease-Associated Artery/Lesion type: [place] artery [place] vs. transplanted heart: [place] heart Associated angina: without angina Qualified Code(s): I25.10 - Atherosclerotic heart disease of [place] coronary artery without angina pectoris (4) Bipolar disorder Current Visit: No Status: Acute Follows with psych and reports compliance with psych meds. Concern for compliance with medications. Qualifiers: Active/Remission status: in remission of unspecified degree Qualified Code( s): F31.70 - Bipolar disorder, currently in remission, most recent episode unspecified (5) Healthcare-associated pneumonia Current Visit: Yes Status: Acute CXR shows possible pnuemonia. Hospitalist consulted. Appreciate input. Discussion w patient/family: The assessment and plan as outlined above was discussed with the patient and/or family members who expressed understanding and agreement. All questions were answered. Thank you for involving us in the care of your patient. Please call with any questions. Subjective Principal diagnosis: Chest pain. Interval history: Mr. Preciado is a poor historian. He is unable to recall the events leading up to admission. He was reported to have recurrent chest pain and SOB. Noted to have persistent cough. His EKG was unchanged from previous EKG and showed persistent ST elevation. Noted to have increasing troponin at 0.58 and 1.82. He was taken emergently to the cardiac catheterzation lab. Previous stents found to be patent. There was moderate non-obstructive disease remaining. He now denies chest pain. Dry cough noted. He is unable to elaborate on how long he had a cough. Objective Vital Signs, Last 4 Hours Temp Pulse Resp BP Pulse Ox 03/08/17 09:43 79 95 03/08/17 09:00 88 18 104/66 93 03/08/17 08:00 98.0 F 79 18 102/67 95 03/08/17 07:34 98.0 F 03/08/17 07:00 72 18 85/56 95 General: Conversant, No Apparent Distress, Other (poor historian) HEENT: Atraumatic, Normocephaly, Mucus Membranes Moist Neck: No JVD, Normal carotid pulses Cardiac: Reg Rate and Rhythm, Normal S1 and S2, No Murmur Lungs: Normal Breath Sounds, No Wheeze, Rales, Rhonchi Neuro: Alert and responsive, No focal deficits noted Abdomen: Soft, Non-Tender Skin: No rashes noted on visualized skin Musculoskeletal: No Chest Wall Tenderness Extremities: No Clubbing, No Cyanosis, No Edema, Normal Pulses, Other (groin without hematoma.) Results 03/08/17 01:28 03/08/17 01:28 Lab Results 03/08/17 03/08/17 01:28 01:28 WBC 11.8 H Hgb 12.5 L Hct 36.2 L Plt Count 406 H Sodium 129 L Potassium 4.0 Chloride 95 L Carbon Dioxide 20 BUN 12 Creatinine 0.89 Glucose 97 Calcium 8.6 - Imaging and Cardiology Echo: pending, report reviewed - VTE Reasons for not Prescribing Prophylaxis: Treatment not Indicated - Low risk for VTE Documentation of Mechanical Device: Intermittent pneumatic compression device Consult Discharge Plan - Plan Referrals: Juan M Gomez MD [Primary Care Provider] -
--- NOTE | 2017-03-08 17:07 | Electrocardiograph Report ---
[place] [id number] Test Date: 2017-03-07 Pat Name: Benjie Preciado Department: 103 Room: 2NE25 Gender: M Matrix Bath Attendant: DAVID : 1955 Requested By: Miles Rascon Order Number: [id number] Reading MD: Oscar Ray Measurements Intervals [place] Rate: 86 P: 24 DE: 149 QRS: 267 QRSD: 112 T: 109 QT: 403 QTc: 446 Interpretive Statements SINUS RHYTHM WITH SINUS ARRHYTHMIA MARKED RIGHT AXIS DEVIATION ANTEROSEPTAL MYOCARDIAL INFARCTION, PROBABLY RECENT Electronically Signed On 03-08-2017 17:05:55 EDT by Oscar Ray
--- NOTE | 2017-03-08 17:09 | Electrocardiograph Report ---
[place] [id number] Test Date: 2017-03-08 Pat Name: Benjie Preciado Department: 109 Room: 2NE25 Gender: M Director Stage: KERLINE : 1955 Requested By: Keya Schaeffer Order Number: [id number] Reading MD: Oscar Ray Measurements Intervals [place] Rate: 78 P: 28 UT: 148 QRS: 209 QRSD: 96 T: 143 QT: 393 QTc: 427 Interpretive Statements SINUS RHYTHM WITH SINUS ARRHYTHMIA LOW QRS VOLTAGE IN EXTREMITY LEADS ANTEROLATERAL MYOCARDIAL INFARCTION, PROBABLY RECENT Electronically Signed On 03-08-2017 17:08:04 EDT by Oscar Ray
[2017-03-08] MEDS: *HR* Heparin 5,000 UNIT/ML VIAL SQ SCH (17:45)
[2017-03-08] MEDS ORDERED: *HR* Heparin 5,000 UNIT/ML VIAL SQ SCH (18:00)
[2017-03-08] MEDS: Cefepime HCl 1,000 MG in D5% in Water (Mini-Bag+) 100 ML IVPB SCH (22:13)
[2017-03-09 04:22] LABS: Chol/HDL Ratio 3.1 (0-4.9)
[2017-03-09] MEDS: *HR* Heparin 5,000 UNIT/ML VIAL SQ SCH ×2 (05:29→17:35)
[2017-03-09] MEDS ORDERED: Nitroglycerin 0.4 MG TAB.SUBL SL PRN (07:18)
[2017-03-09] MEDS: Aspirin 81 MG TAB.CHEW PO SCH (10:06)
[2017-03-09] MEDS: risperiDONE 1 MG TABLET PO SCH (10:07)
[2017-03-09] MEDS: Cefepime HCl 1,000 MG in D5% in Water (Mini-Bag+) 100 ML IVPB SCH (12:20)
[2017-03-09] MEDS: Levofloxacin 750 MG/150 ML 750 MG/150 ML BAG IVPB SCH (12:22)
[2017-03-09 12:34] LABS: Basophils # 0.1 K/mcL (0.0-0.2); Eosinophils # 0.1 K/mcL (0.0-0.6); Eosinophils % 1.7 %; Hematocrit 34.9 % (37.5-50.1); Hemoglobin 11.7 g/dL (12.9-16.9); Immature Granulocytes % 0.6 % (0-4); Lymphocytes # 1.2 K/mcL (0.6-4.6); Lymphocytes % 14.7 %; Mean Corpuscular HGB Conc 33.5 g/dL (31.6-35.5); Mean Corpuscular Hemoglobin 29.8 pg (28.0-33.3); Mean Platelet Volume 9.9 fL (9.4-12.4); Monocytes # 0.8 K/mcL (0.0-1.3); Monocytes % 10.1 %; Platelet Count 416 K/mcL (140-400); Red Blood Count 3.92 M/mcL (4.19-5.50); Red Cell Distribution Width 12.9 % (11.5-14.5); Segmented Neutrophils % 71.9 %
[2017-03-09 12:43] LABS: BUN/Creatinine Ratio 16 (6-26); Blood Urea Nitrogen 14 mg/dL (8-26); Calcium 8.3 mg/dL (8.6-10.8); Carbon Dioxide 22 mEq/L (19-29); Chloride 101 mEq/L (98-109); Glucose 87 mg/dL (70-99); Osmolality,Calculated 276 (280-300); Sodium 133 mEq/L (136-145); eGFR For African Americans > 60 (> 60); eGFR For Non-African Americans > 60 (> 60)
--- NOTE | 2017-03-09 13:31 | Internal Med Progress Note ---
Date of Encounter: 03/09/17 Time of Encounter: 08:50 - Assessment and plan (1) Healthcare-associated pneumonia Current Visit: Yes Status: Acute Assessment and plan: Probable healthcare associated pneumonia - right upper lobe, present on admission Continue empiric IV Cefepime, IV Levaquin, DuoNeb breathing treatment Chest x-ray - pulmonary edema, focal consolidation in the right upper lobe concerning for pneumonia EKG - sinus rhythm, initial ST elevation anterolateral leads, similar to previous EKG otherwise no acute changes Troponin - 1.44 Cultures - pending Cardiac telemetry, pulse ox, labs in a.m., monitor closely (2) Non-ST elevation (NSTEMI) myocardial infarction Current Visit: Yes Status: Acute Assessment and plan: Non-ST elevation MT - with EKG changes concerning for persistent ST elevation Troponin - 1.[address] [facility] - patent stents with [id number] nonobstructive disease remaining Weekly type II MT in the setting of pneumonia Continue Aspirin, Plavix, Crestor, no beta konstantin due to hypotension Cardiology following Cardiac telemetry, labs in a.m., continuous pulse ox, monitor closely (3) Ischemic cardiomyopathy Current Visit: No Status: Chronic Assessment and plan: Severe LV systolic dysfunction with LVEF 25-30%, regional wall motion abnormalities Chest x-ray - pulmonary edema with focal consolidation in the right upper lobe concerning for pneumonia signs and symptoms of CHF exacerbation at this time, Cardiac telemetry, continue to monitor closely (4) CAD (coronary artery disease) Current Visit: No Status: Chronic Assessment and plan: Status post recent STEMI 02/22/[address] [facility] - PCI to pLAD and mLCx, LVEF 20% Continue Aspirin, Plavix, Crestor Concern about medication compliance, patient may need ECF or home health services Qualifiers: Coronary Disease-Associated Artery/Lesion type: [place] artery [place] vs. transplanted heart: [place] heart Associated angina: without angina Qualified Code(s): I25.10 - Atherosclerotic heart disease of [place] coronary artery without angina pectoris (5) Bipolar disorder Current Visit: No Status: Chronic Assessment and plan: Continue home dose of Celexa Outpatient follow-up with psychiatry Qualifiers: Active/Remission status: in remission of unspecified degree Qualified Code( s): F31.70 - Bipolar disorder, currently in remission, most recent episode unspecified (6) Hypertension Current Visit: No Status: Chronic Assessment and plan: Essential hypertension, controlled, monitor Patient has been hypotensive, no beta konstantin Qualifiers: Hypertension type: essential hypertension Qualified Code(s): I10 - Essential (primary) hypertension (7) DVT prophylaxis Current Visit: Yes Status: Acute Assessment and plan: Continue heparin subcutaneous - Time Spent With Patient 25 - 35 minutes - Subjective Interval history: Examined this morning. Patient is awake and alert. Not in any distress. Denies chest pain or shortness of breath. Hemodynamically stable. No fever. Tolerating oral diet well. Ambulating well. No other acute events or complaints. Patient admitted for non-ST elevation MT. He underwent emergent LHC that showed patent stents. [id number] nonobstructive disease is present. Patient likely has type II MT due to pneumonia. Cardiology recommends Plavix, aspirin and Crestor. Patient does have severe LV dysfunction with LVEF 25-30%. - Constitutional Vitals: Temp Pulse Resp BP Pulse Ox 97.6 F 83 18 100/61 93 03/09/17 11:37 03/09/17 11:37 03/09/17 11:37 03/09/17 11:37 03/09/17 11:37 General appearance: Present: cooperative, A&O X 3, pleasant, no acute distress, answers questions appropriately - Head Head exam: Present: atraumatic - Eye Eye exam: Present: EOMI - ENT ENT exam: Present: mucous membranes moist - Respiratory Respiratory exam: Present: CTAB. Absent: rales, rhonchi, wheezes, tachypnea - Cardiovascular Cardiovascular exam: Present: RRR, +S1, +S2 - GI/Abdominal GI/Abdominal exam: Present: soft. Absent: distended, firm, guarding, tenderness - Extremities Exam Extremities exam: Present: radial pulses palpable and symmetrical. Absent: calf tenderness, cyanotic, pedal edema - Neurological Exam Neurological exam: Present: alert, oriented X3, no focal deficits. Absent: facial droop, speech deficit Internal Medicine: Result - Labs CBC & Chem 7: 03/09/17 12:23 03/09/17 12:23 Labs: Short CBC 03/09/17 Range/Units 12:23 WBC 8.3 (4.3-11.1) K/mcL Hgb 11.7 L (12.9-16.9) g/dL Hct 34.9 L (37.5-50.1) % Plt Count 416 H (140-400) K/mcL Neutrophils # 6.0 (1.6-8.9) K/mcL BMP 03/09/17 12:23 Sodium 133 L Potassium 4.0 Chloride 101 Carbon Dioxide 22 BUN 14 Creatinine 0.90 Glucose 87 Calcium 8.3 L Cardiac Enzymes 03/09/17 Range/Units 12:23 Troponin I 1.44 H* (0-0.03) ng/mL - ABG Interpretation ABG results: PT/INR, D-dimer PT 14.7 Seconds (9.4-12.1) H 03/07/17 22:48 - VTE Reasons for not Prescribing Prophylaxis: Treatment not Indicated - Low risk for VTE Documentation of Mechanical Device: Intermittent pneumatic compression device Consult Discharge Plan - Plan Referrals: Juan M Gomez MD [Primary Care Provider] -
--- NOTE | 2017-03-09 13:50 | Cardiology Progress Note ---
Date of Encounter: 03/09/17 Time of Encounter: 13:47 Assessment and Plan (1) Non-ST elevation (NSTEMI) myocardial infarction Current Visit: Yes Status: Acute Presented with EKG changes concerning for persistent ST elevation from recent acute [place]. Troponin elevated up to 1.58, 1.44. Underwent emergent LHC that showed patent stents. There was mild-moderate non- obstructive disease remaining. Likely type II [place] in the setting of pneumonia. Hospitalist consulted. There is also concern of patient not being able to take medications. Discussed with Dr. Rodriguez, change brilinta to plavix. Load with 600 mg and start 75 mg daily. Continue asa and statin. No bb due to hypotension. NTG PRN pain. He is already enrolled in phase I cardiac rehab. Importance of DAPT with asa and plavix reviewed with patient. With patients short term memory loss there is concern of compliance with medications and ability of patient to care for himself at home. PT/OT eval completed and patient not deemed safe to return home unless 24 hour care or ECF. cleaner touch up worker consulted. Out-patient f/u with [place] [facility]ology will be arranged. (2) Ischemic cardiomyopathy Current Visit: No Status: Chronic TTE 02/22/17_Severe LV systolic dysfunction, LVEF 25-30%. There are regional wall motion abnormalities, see diagram below. Mild left ventricular diastolic dysfunction. Normal right ventricular size and function. No significant valvular dysfunction. Mild pulmonary hypertension. Estimated RVSP = 38 mmHg. There is a small pericardial effusion present. There is no echocardiographic evidence of tamponade. Check limited TTE in the setting of NSTEMI and known small pericardial effusion. CXR shows pulmonary edema and bilateral pleural effusions. Mild fluid overload noted during LHC. Patient given IV lasix initially. No significant fluid noted on exam today. Net negative 2950. Strict I&O and daily weights. Low sodium diet. No bb or susanna-inhibitor secondary to hypotension. Will continue to monitor. (3) CAD (coronary artery disease) Current Visit: No Status: Chronic S/p recent STEMI 02/22/17. LHC with PCI to pLAD and mLCx, EF 20%. Continue asa, plavix, and statin. Concern for compliance with meds. Needs home health or ECF. cleaner touch up worker consulted. Qualifiers: Coronary Disease-Associated Artery/Lesion type: [place] artery [place] vs. transplanted heart: [place] heart Associated angina: without angina Qualified Code(s): I25.10 - Atherosclerotic heart disease of [place] coronary artery without angina pectoris (4) Bipolar disorder Current Visit: No Status: Chronic Follows with psych and reports compliance with psych meds. Concern for compliance with medications. Qualifiers: Active/Remission status: in remission of unspecified degree Qualified Code( s): F31.70 - Bipolar disorder, currently in remission, most recent episode unspecified (5) Healthcare-associated pneumonia Current Visit: Yes Status: Acute CXR shows possible pneumonia. Hospitalist consulted. Appreciate input. Discussion w patient/family: The assessment and plan as outlined above was discussed with the patient and/or family members who expressed understanding and agreement. All questions were answered. Thank you for involving us in the care of your patient. Please call with any questions. Subjective Principal diagnosis: Chest pain. Interval history: 02/26/17 Mr. Preciado is a poor historian. He is unable to recall the events leading up to admission. He was reported to have recurrent chest pain and SOB. Noted to have persistent cough. His EKG was unchanged from previous EKG and showed persistent ST elevation. Noted to have increasing troponin at 0.58 and 1.82. He was taken emergently to the cardiac catheterzation lab. Previous stents found to be patent. There was moderate non-obstructive disease remaining. He now denies chest pain. Dry cough noted. He is unable to elaborate on how long he had a cough. 02/27/17-Continues to deny chest pain or SOB. Inappropriate comments in context to discussion noted. Known short term memory loss. PT/OT notes reviewed. Patient is not deemed safe to return home unless 24 hour care is available. Discussed with patient. He does not appear to be able to make the decision on his own. He is unable to follow our conversation. Objective Vital Signs, Last 4 Hours Temp Pulse Resp BP Pulse Ox 03/09/17 11:37 97.6 F 83 18 100/61 93 General: Conversant, No Apparent Distress, Other (historian) HEENT: Atraumatic, Normocephaly, Mucus Membranes Moist Neck: No JVD, Normal carotid pulses Cardiac: Reg Rate and Rhythm, Normal S1 and S2, No Murmur Lungs: Normal Breath Sounds, No Wheeze, Rales, Rhonchi Neuro: Alert and responsive, No focal deficits noted Abdomen: Soft, Non-Tender Skin: No rashes noted on visualized skin Musculoskeletal: No Chest Wall Tenderness Extremities: No Clubbing, No Cyanosis, No Edema, Normal Pulses Results 03/09/17 12:23 03/09/17 12:23 Lab Results 03/09/17 03/09/17 03/09/17 12:23 12:23 12:23 WBC 8.3 Hgb 11.7 L Hct 34.9 L Plt Count 416 H Sodium 133 L Potassium 4.0 Chloride 101 Carbon Dioxide 22 BUN 14 Creatinine 0.90 Glucose 87 Calcium 8.3 L Troponin I 1.44 H* - Imaging and Cardiology Echo: report reviewed Cardiac cath: report reviewed - EKG Interpretation EKG results cardiology: personally reviewed - VTE Reasons for not Prescribing Prophylaxis: Treatment not Indicated - Low risk for VTE Documentation of Mechanical Device: Intermittent pneumatic compression device Consult Discharge Plan - Plan Referrals: Juan M Gomez MD [Primary Care Provider] -
[2017-03-09] MEDS: Ipratropium/Albuterol Neb 3 ML IH SCH ×2 (16:17→20:13)
[2017-03-09] MEDS: Cefepime HCl 1,000 MG in Water for inj. (sterile) 10 ML IVP SCH (23:04)
[2017-03-10] MEDS: Ipratropium/Albuterol Neb 3 ML IH SCH ×7 (00:02→23:01)
[2017-03-10] MEDS: *HR* Heparin 5,000 UNIT/ML VIAL SQ SCH ×2 (06:29→18:19)
[2017-03-10 07:47] LABS: BUN/Creatinine Ratio 10 (6-26); Blood Urea Nitrogen 9 mg/dL (8-26); Calcium 8.6 mg/dL (8.6-10.8); Carbon Dioxide 24 mEq/L (19-29); Chloride 104 mEq/L (98-109); Glucose 94 mg/dL (70-99); Osmolality,Calculated 280 (280-300); Sodium 136 mEq/L (136-145); eGFR For African Americans > 60 (> 60); eGFR For Non-African Americans > 60 (> 60)
[2017-03-10 07:50] LABS: Basophils # 0.1 K/mcL (0.0-0.2); Basophils % 0.8 %; Eosinophils # 0.2 K/mcL (0.0-0.6); Eosinophils % 1.9 %; Hematocrit 34.8 % (37.5-50.1); Hemoglobin 11.5 g/dL (12.9-16.9); Immature Granulocytes % 0.9 % (0-4); Lymphocytes # 1.3 K/mcL (0.6-4.6); Lymphocytes % 16.4 %; Mean Corpuscular Hemoglobin 29.6 pg (28.0-33.3); Mean Corpuscular Volume 89.7 fL (83.0-100.0); Mean Platelet Volume 10.3 fL (9.4-12.4); Monocytes # 0.8 K/mcL (0.0-1.3); Monocytes % 10.3 %; Neutrophils # 5.6 K/mcL (1.6-8.9); Platelet Count 426 K/mcL (140-400); Red Blood Count 3.88 M/mcL (4.19-5.50); Red Cell Distribution Width 13.1 % (11.5-14.5); Segmented Neutrophils % 69.7 %
[2017-03-10] MEDS: Cefepime HCl 1,000 MG in Water for inj. (sterile) 10 ML IVP SCH ×2 (10:24→21:47)
[2017-03-10] MEDS: Aspirin 81 MG TAB.CHEW PO SCH (10:27)
[2017-03-10] MEDS: risperiDONE 1 MG TABLET PO SCH (10:27)
[2017-03-10] MEDS: Levofloxacin 750 MG/150 ML 750 MG/150 ML BAG IVPB SCH (10:27)
--- NOTE | 2017-03-10 10:58 | Cardiology Progress Note ---
Date of Encounter: 03/10/17 Time of Encounter: 10:53 Assessment and Plan (1) Non-ST elevation (NSTEMI) myocardial infarction Current Visit: Yes Status: Acute Presented with EKG changes concerning for persistent ST elevation from recent acute TX. Troponin elevated up to 1.58, 1.44. Underwent emergent LHC that showed patent stents. There was mild-moderate non- obstructive disease remaining. Likely type II [place] in the setting of pneumonia. Hospitalist consulted. There is also concern of patient not being able to take medications. Patient now going to ECF. He is already enrolled in phase I cardiac rehab. Importance of DAPT with asa and plavix reviewed with patient. Out-patient f/u with [place] [facility] will be arranged. Limited TTE was ordered to re-eval LV function and pericardial effusion. If no significant change cardiology will sign off. I discussed with Dr. Kathleen. He will take patient onto hospital service for continued treatment of pneumonia and set up with ECF. Please call with questions. (2) Ischemic cardiomyopathy Current Visit: No Status: Chronic TTE 02/22/17_Severe LV systolic dysfunction, LVEF 25-30%. There are regional wall motion abnormalities, see diagram below. Mild left ventricular diastolic dysfunction. Normal right ventricular size and function. No significant valvular dysfunction. Mild pulmonary hypertension. Estimated RVSP = 38 mmHg. There is a small pericardial effusion present. There is no echocardiographic evidence of tamponade. Check limited TTE in the setting of NSTEMI and known small pericardial effusion. CXR shows pulmonary edema and bilateral pleural effusions. Mild fluid overload noted during LHC. Patient given IV lasix initially. No significant fluid noted on exam today. Net negative 2950. Strict I&O and daily weights. Low sodium diet. No bb or susanna-inhibitor secondary to hypotension. (3) CAD (coronary artery disease) Current Visit: No Status: Chronic S/p recent STEMI 02/22/17. LHC with PCI to pLAD and mLCx, EF 20%. Continue asa, plavix, and statin. Qualifiers: Coronary Disease-Associated Artery/Lesion type: [place] artery [place] vs. transplanted heart: [place] heart Associated angina: without angina Qualified Code(s): I25.10 - Atherosclerotic heart disease of [place] coronary artery without angina pectoris (4) Bipolar disorder Current Visit: No Status: Chronic Follows with psych and reports compliance with psych meds. Concern for compliance with medications. Qualifiers: Active/Remission status: in remission of unspecified degree Qualified Code( s): F31.70 - Bipolar disorder, currently in remission, most recent episode unspecified (5) Healthcare-associated pneumonia Current Visit: Yes Status: Acute CXR shows possible pneumonia. On IV antibiotic. Hospitalist consulted. Appreciate input. Discussion w patient/family: The assessment and plan as outlined above was discussed with the patient and/or family members who expressed understanding and agreement. All questions were answered. Thank you for involving us in the care of your patient. Please call with any questions. Subjective Principal diagnosis: Chest pain. Interval history: 03/08/17 Mr. Preciado is a poor historian. He is unable to recall the events leading up to admission. He was reported to have recurrent chest pain and SOB. Noted to have persistent cough. His EKG was unchanged from previous EKG and showed persistent ST elevation. Noted to have increasing troponin at 0.58 and 1.82. He was taken emergently to the cardiac catheterzation lab. Previous stents found to be patent. There was moderate non-obstructive disease remaining. He now denies chest pain. Dry cough noted. He is unable to elaborate on how long he had a cough. 03/09/17-Continues to deny chest pain or SOB. Inappropriate comments in context to discussion noted. Known short term memory loss. PT/OT notes reviewed. Patient is not deemed safe to return home unless 24 hour care is available. Discussed with patient. He does not appear to be able to make the decision on his own. He is unable to follow our conversation. 03/10/17- No new complaints. Now agreeable to go to [facility]. Awaiting for insurance approval. Objective Vital Signs, Last 4 Hours Temp Pulse Resp BP Pulse Ox 03/10/17 08:27 98.1 F 80 18 99/66 94 General: Conversant, No Apparent Distress, Other (Makes inappropriate comments in contet to conversation. Mentation appears to be at baseline. ) HEENT: Atraumatic, Normocephaly, Mucus Membranes Moist Neck: No JVD, Normal carotid pulses Cardiac: Reg Rate and Rhythm, Normal S1 and S2, No Murmur Lungs: Normal Breath Sounds, No Wheeze, Rales, Rhonchi Neuro: Alert and responsive, No focal deficits noted Abdomen: Soft, Non-Tender Skin: No rashes noted on visualized skin Musculoskeletal: No Chest Wall Tenderness Extremities: No Clubbing, No Cyanosis, No Edema, Normal Pulses Results 03/10/17 06:57 03/10/17 06:57 Lab Results 03/09/17 03/09/17 03/09/17 12:23 12:23 12:23 WBC 8.3 Hgb 11.7 L Hct 34.9 L Plt Count 416 H Sodium 133 L Potassium 4.0 Chloride 101 Carbon Dioxide 22 BUN 14 Creatinine 0.90 Glucose 87 Calcium 8.3 L Troponin I 1.44 H* 03/10/17 03/10/17 06:57 06:57 WBC 8.0 Hgb 11.5 L Hct 34.8 L Plt Count 426 H Sodium 136 Potassium 4.0 Chloride 104 Carbon Dioxide 24 BUN 9 Creatinine 0.86 Glucose 94 Calcium 8.6 Troponin I - VTE Reasons for not Prescribing Prophylaxis: Treatment not Indicated - Low risk for VTE Documentation of Mechanical Device: Intermittent pneumatic compression device Consult Discharge Plan - Plan Referrals: Juan M Gomez MD [Primary Care Provider] -
--- NOTE | 2017-03-10 15:47 | Internal Med Progress Note ---
Date of Encounter: 03/10/17 Time of Encounter: 09:55 - Assessment and plan (1) Healthcare-associated pneumonia Current Visit: Yes Status: Acute Assessment and plan: Probable healthcare associated pneumonia - right upper lobe, present on admission - slowly improving Continue empiric IV Cefepime, IV Levaquin, DuoNeb breathing treatment Chest x-ray - pulmonary edema, focal consolidation in the right upper lobe concerning for pneumonia EKG - sinus rhythm, initial ST elevation anterolateral leads, similar to previous EKG otherwise no acute changes Troponin - 1.44 Cultures - pending Cardiac telemetry, pulse ox, labs in a.m., monitor closely Anticipated discharge to ECF soon (2) Non-ST elevation (NSTEMI) myocardial infarction Current Visit: Yes Status: Acute Assessment and plan: Non-ST elevation [place] - with EKG changes concerning for persistent ST elevation Troponin - 1.44 Emergent [facility] - patent stents with [id number] nonobstructive disease remaining Weekly type II GA in the setting of pneumonia Continue Aspirin, Plavix, Crestor, no beta konstantin due to hypotension Cardiology following - appreciate input Cardiac telemetry, labs in a.m., continuous pulse ox, monitor closely Patient will need cardiac rehabilitation on discharge, outpatient cardiology follow-up (3) Ischemic cardiomyopathy Current Visit: No Status: Chronic Assessment and plan: Severe LV systolic dysfunction with LVEF 25-30%, regional wall motion abnormalities Chest x-ray - pulmonary edema with focal consolidation in the right upper lobe concerning for pneumonia No signs and symptoms of CHF exacerbation at this time - not in fluid overload Cardiac telemetry, continue to monitor closely Fluid Restriction, daily weight, strict I's and O's (4) CAD (coronary artery disease) Current Visit: No Status: Chronic Assessment and plan: Status post recent STEMI 02/22/2017 [facility] - PCI to pLAD and mLCx, LVEF 20% Continue Aspirin, Plavix, Crestor Concern about medication compliance, anticipate discharge to ECF Qualifiers: Coronary Disease-Associated Artery/Lesion type: [place] artery [place] vs. transplanted heart: [place] heart Associated angina: without angina Qualified Code(s): I25.10 - Atherosclerotic heart disease of [place] coronary artery without angina pectoris (5) Bipolar disorder Current Visit: No Status: Chronic Assessment and plan: Continue home dose of Celexa Outpatient follow-up with psychiatry Qualifiers: Active/Remission status: in remission of unspecified degree Qualified Code( s): F31.70 - Bipolar disorder, currently in remission, most recent episode unspecified (6) Hypertension Current Visit: No Status: Chronic Assessment and plan: Essential hypertension, controlled, monitor Patient has been hypotensive No beta konstantin due to hypotension Qualifiers: Hypertension type: essential hypertension Qualified Code(s): I10 - Essential (primary) hypertension (7) DVT prophylaxis Current Visit: Yes Status: Acute Assessment and plan: Continue heparin subcutaneous - Time Spent With Patient 25 - 35 minutes - Subjective Interval history: Examined this morning. Patient is awake and alert. Not in any distress. Denies chest pain or shortness of breath. Hemodynamically stable. No fever. Tolerating oral diet well. Ambulating well. No other acute events or complaints. Patient states he feels better. Patient admitted for non-ST elevation GA. He underwent emergent LHC that showed patent stents. [id number] nonobstructive disease is present. Patient likely has type II GA due to pneumonia. Cardiology recommends Plavix, aspirin and Crestor. Patient does have severe LV dysfunction with LVEF 25-30%. - Constitutional Vitals: Temp Pulse Resp BP Pulse Ox 98.3 F 81 16 97/64 95 03/10/17 10:54 03/10/17 10:54 03/10/17 11:22 03/10/17 11:22 03/10/17 11:22 General appearance: Present: cooperative, A&O X 3, pleasant, no acute distress, answers questions appropriately - Head Head exam: Present: atraumatic - Eye Eye exam: Present: EOMI - ENT ENT exam: Present: mucous membranes moist - Respiratory Respiratory exam: Present: CTAB. Absent: rales, rhonchi, wheezes, tachypnea - Cardiovascular Cardiovascular exam: Present: RRR, +S1, +S2 - GI/Abdominal GI/Abdominal exam: Present: soft. Absent: distended, firm, guarding, tenderness - Extremities Exam Extremities exam: Present: radial pulses palpable and symmetrical. Absent: calf tenderness, cyanotic, pedal edema - Neurological Exam Neurological exam: Present: alert, oriented X3, no focal deficits. Absent: facial droop, speech deficit Internal Medicine: Result - Labs CBC & Chem 7: 03/10/17 06:57 03/10/17 06:57 Labs: Short CBC 03/10/17 Range/Units 06:57 WBC 8.0 (4.3-11.1) K/mcL Hgb 11.5 L (12.9-16.9) g/dL Hct 34.8 L (37.5-50.1) % Plt Count 426 H (140-400) K/mcL Neutrophils # 5.6 (1.6-8.9) K/mcL BMP 03/10/17 06:57 Sodium 136 Potassium 4.0 Chloride 104 Carbon Dioxide 24 BUN 9 Creatinine 0.86 Glucose 94 Calcium 8.6 - ABG Interpretation ABG results: PT/INR, D-dimer PT 14.7 Seconds (9.4-12.1) H 03/07/17 22:48 - VTE Reasons for not Prescribing Prophylaxis: Treatment not Indicated - Low risk for VTE Documentation of Mechanical Device: Intermittent pneumatic compression device Consult Discharge Plan - Plan Referrals: Juan M Gomez MD [Primary Care Provider] -
[2017-03-11] MEDS: Ipratropium/Albuterol Neb 3 ML IH SCH ×6 (03:05→23:37)
[2017-03-11] MEDS: *HR* Heparin 5,000 UNIT/ML VIAL SQ SCH ×2 (05:53→17:30)
[2017-03-11] MEDS: Cefepime HCl 1,000 MG in Water for inj. (sterile) 10 ML IVP SCH ×2 (09:49→21:48)
[2017-03-11] MEDS: risperiDONE 1 MG TABLET PO SCH (09:50)
[2017-03-11] MEDS: Aspirin 81 MG TAB.CHEW PO SCH (09:50)
[2017-03-11] MEDS: Levofloxacin 750 MG/150 ML 750 MG/150 ML BAG IVPB SCH (09:55)
--- NOTE | 2017-03-11 10:42 | Internal Med Progress Note ---
Date of Encounter: 03/11/17 Time of Encounter: 08:20 - Assessment and plan (1) Healthcare-associated pneumonia Current Visit: Yes Status: Acute Assessment and plan: Probable healthcare associated pneumonia - right upper lobe, present on admission - symptoms slowly improved Continue empiric IV Cefepime, IV Levaquin, DuoNeb breathing treatment Discharge to ECF with Levaquin Chest x-ray - pulmonary edema, focal consolidation in the right upper lobe concerning for pneumonia EKG - sinus rhythm, initial ST elevation anterolateral leads, similar to previous EKG otherwise no acute changes Troponin - 1.44 Cultures - no growth Cardiac telemetry, pulse ox, monitor closely Anticipated discharge to ECF in a.m. (2) Non-ST elevation (NSTEMI) myocardial infarction Current Visit: Yes Status: Acute Assessment and plan: Non-ST elevation [place] - with EKG changes concerning for persistent ST elevation Troponin - 1.44 Emergent LHC - patent stents with [id number] nonobstructive disease remaining, LVEF 35% Likely type II [place] in the setting of pneumonia Continue Aspirin, Plavix, Crestor Low dose of Toprol-XL can possibly be added on discharge Cardiology following - appreciate input Cardiac telemetry, continuous pulse ox, monitor closely, anticipate discharge in a.m. to ECF Patient will need cardiac rehabilitation on discharge, outpatient cardiology follow-up (3) Ischemic cardiomyopathy Current Visit: No Status: Chronic Assessment and plan: Severe LV systolic dysfunction with LVEF 25-30%, regional wall motion abnormalities CXR - pulmonary edema with focal consolidation in the right upper lobe concerning for pneumonia Beta konstantin/ACEi not started due to hypotension No signs and symptoms of CHF exacerbation at this time - not in fluid overload Cardiac telemetry, continue to monitor closely, Fluid Restriction, daily weight , strict I's and O's (4) CAD (coronary artery disease) Current Visit: No Status: Chronic Assessment and plan: Status post recent STEMI 02/22/2017 [facility] - PCI to pLAD and mLCx, LVEF 20% Continue Aspirin, Plavix, Crestor Concern about medication compliance, anticipate discharge to ECF Qualifiers: Coronary Disease-Associated Artery/Lesion type: [place] artery [place] vs. transplanted heart: [place] heart Associated angina: without angina Qualified Code(s): I25.10 - Atherosclerotic heart disease of [place] coronary artery without angina pectoris (5) Bipolar disorder Current Visit: No Status: Chronic Assessment and plan: Continue home dose of Celexa Outpatient follow-up with psychiatry Qualifiers: Active/Remission status: in remission of unspecified degree Qualified Code( s): F31.70 - Bipolar disorder, currently in remission, most recent episode unspecified (6) Hypertension Current Visit: No Status: Chronic Assessment and plan: Essential hypertension, controlled, monitor Patient has been hypotensive No beta konstantin/ACEi due to hypotension Qualifiers: Hypertension type: essential hypertension Qualified Code(s): I10 - Essential (primary) hypertension (7) DVT prophylaxis Current Visit: Yes Status: Acute Assessment and plan: Continue heparin subcutaneous - Time Spent With Patient 25 - 35 minutes - Subjective Interval history: Examined this morning. Patient is awake and alert. Not in any distress. Denies chest pain or shortness of breath. Hemodynamically stable. No fever. Tolerating oral diet well. Ambulating well. No other acute events or complaints. Patient states he feels better. Anticipate discharge to [facility] tomorrow. NSTEMI. He underwent emergent LHC that showed patent stents. [id number] nonobstructive disease is present. Patient likely has type II [place] due to pneumonia. Cardiology recommends Plavix, Aspirin and Crestor. Patient does have severe LV dysfunction with LVEF 25-30%. - Constitutional Vitals: Temp Pulse Resp BP Pulse Ox 98.5 F 70 20 107/64 94 03/11/17 09:00 03/11/17 09:00 03/11/17 09:00 03/11/17 09:00 03/11/17 09:00 General appearance: Present: cooperative, A&O X 3, pleasant, no acute distress, answers questions appropriately - Head Head exam: Present: atraumatic - Eye Eye exam: Present: EOMI - ENT ENT exam: Present: mucous membranes moist - Respiratory Respiratory exam: Present: CTAB. Absent: accessory muscle use, chest wall tenderness, rales, rhonchi, wheezes, tachypnea - Cardiovascular Cardiovascular exam: Present: RRR, +S1, +S2, systolic murmur - GI/Abdominal GI/Abdominal exam: Present: soft. Absent: distended, firm, guarding, tenderness - Extremities Exam Extremities exam: Present: radial pulses palpable and symmetrical. Absent: calf tenderness, cyanotic, pedal edema - Neurological Exam Neurological exam: Present: alert, oriented X3, no focal deficits. Absent: facial droop, speech deficit Internal Medicine: Result - Labs CBC & Chem 7: 03/10/17 06:57 03/10/17 06:57 - ABG Interpretation ABG results: PT/INR, D-dimer PT 14.7 Seconds (9.4-12.1) H 03/07/17 22:48 - VTE Reasons for not Prescribing Prophylaxis: Treatment not Indicated - Low risk for VTE Documentation of Mechanical Device: Intermittent pneumatic compression device Consult Discharge Plan - Plan Referrals: Juan M Gomez MD [Primary Care Provider] -
[2017-03-12] MEDS: Ipratropium/Albuterol Neb 3 ML IH SCH ×4 (03:20→16:34)
[2017-03-12] MEDS: *HR* Heparin 5,000 UNIT/ML VIAL SQ SCH (05:45)
--- NOTE | 2017-03-12 09:50 | Discharge Summary ---
Date of Encounter: 03/12/17 Time of Encounter: 08:10 - Discharge Diagnosis (1) Healthcare-associated pneumonia Priority: Primary Status: Acute Comments: Probable healthcare associated pneumonia - right upper lobe, present on admission - symptoms now improved IV Cefepime, IV Levaquin, DuoNeb breathing treatment - given in hospital Discharge to ECF with PO Levaquin, DuoNeb breathing treatment Chest x-ray - pulmonary edema, focal consolidation in the right upper lobe concerning for pneumonia EKG - sinus rhythm, initial ST elevation anterolateral leads, similar to previous EKG otherwise no acute changes Troponin - 1.44 Cultures - no growth Discharge to ECF in a.m., troponin symptoms worsen, follow up with PCP (2) Non-ST elevation (NSTEMI) myocardial infarction Priority: Primary Status: Acute Comments: Non-ST elevation WI - with EKG changes concerning for persistent ST elevation - currently asymptomatic Troponin - 1.44 Emergent LHC - patent stents with [id number] nonobstructive disease remaining, LVEF 35% Likely type II WI in the setting of pneumonia Continue Aspirin, Plavix, Crestor No beta konstantin due to hypotension Patient will need cardiac rehabilitation on discharge, outpatient cardiology follow-up (3) Ischemic cardiomyopathy Priority: Primary Status: Chronic Comments: Severe LV systolic dysfunction with LVEF 25-30%, regional wall motion abnormalities CXR - pulmonary edema with focal consolidation in the right upper lobe concerning for pneumonia Beta konstantin/ACEi not started due to hypotension No signs and symptoms of CHF exacerbation at this time - not in fluid overload Fluid Restriction, daily weight, strict I's and O's (4) CAD (coronary artery disease) Priority: Primary Status: Chronic Comments: Status post recent STEMI 02/22/2017 - currently asymptomatic LHC - PCI to pLAD and mLCx, LVEF 20% Continue Aspirin, Plavix, Crestor Concern about medication compliance, discharge to ECF Qualifiers: Coronary Disease-Associated Artery/Lesion type: [place] artery [place] vs. transplanted heart: [place] heart Associated angina: without angina Qualified Code(s): I25.10 - Atherosclerotic heart disease of [place] coronary artery without angina pectoris (5) Bipolar disorder Priority: Secondary Status: Chronic Comments: Stable, Continue home dose of Celexa, Risperdal Outpatient follow-up with psychiatry Qualifiers: Active/Remission status: in remission of unspecified degree Qualified Code( s): F31.70 - Bipolar disorder, currently in remission, most recent episode unspecified (6) Hypertension Priority: Secondary Status: Chronic Comments: Essential hypertension, controlled, monitor Patient has been hypotensive No beta konstantin/ACEi due to hypotension Qualifiers: Hypertension type: essential hypertension Qualified Code(s): I10 - Essential (primary) hypertension - Discharge Medications Prescriptions: Ipratropium/Albuterol Neb [Duoneb] 3 ml IH [id number] PRN #30 inhsol PRN Reason: Shortness Of Breath/Wheezing Clopidogrel [Plavix] 75 mg PO DAILY #30 tablet levoFLOXacin [Levaquin] 750 mg PO DAILY 7 Days #7 tablet Nicotine Patch [Nicoderm] 21 mg TD DAILY #30 patch.td24 Home Medications: Citalopram Hydrobromide [Celexa] 40 mg PO DAILY 03/15/16 [History] risperiDONE [Risperidone] 1 mg PO DAILY 03/15/16 [History] Aspirin 81 mg PO DAILY #30 tab.chew 02/27/17 [Rx] Nitroglycerin 0.4 mg SL Q5MIN PRN #30 tab.subl 02/27/17 [Rx] Rosuvastatin [Crestor] 40 mg PO HS #30 tablet 02/27/17 [Rx] Clopidogrel [Plavix] 75 mg PO DAILY #30 tablet 03/12/17 [Rx] Ipratropium/Albuterol Neb [Duoneb] 3 ml IH [id number] PRN #30 inhsol 03/12/17 [Rx] Nicotine Patch [Nicoderm] 21 mg TD DAILY #30 patch.td24 03/12/17 [Rx] levoFLOXacin [Levaquin] 750 mg PO DAILY 7 Days #7 tablet 03/12/17 [Rx] Allergies/Adverse Reactions: 3 Allergy/AdvReac Type Severity Reaction Status Date / Time No Known Allergies Allergy Verified 03/15/16 10:37 Date of admission: 03/08/17 15:49 Primary care physician: Juan M Gomez MD Anticipated date of discharge: 03/12/17 - Patient Status Disposition: Transfer SNF Condition: Good Functional capacity at discharge: independent ambulation Overall status at discharge: patient is progressing back to baseline - Discharge Instructions Follow Up With: Juan M Gomez MD [Primary Care Provider] - Harini Rodriguez [Partnered Physician] - - Diet and Activity Activity: increase activity as tolerated, resume usual activities as tolerated Diet: low fat, low cholesterol, low salt diet Hospital course: Mr. Preciado is a 61 year old male with past medical history of hypertension, seizures, bipolar disorder, recent STEMI and ischemic cardiomyopathy. He presented to the ED with complaints of chest pain. He is found to have non-ST elevation WI. Initially admitted by cardiology. Patient underwent LHC, which showed moderate three-vessel coronary artery disease and moderate to severe LV dysfunction with EF 35%. Advised optimal medical therapy of patient's disease and risk factor modification and cardiac rehabilitation. Patient is also found to have focal consolidation of the right upper lobe concerning for pneumonia on chest x-ray. He was started on IV cefepime and IV Levaquin. He was also on DuoNeb breathing treatment. He is being treated for probable healthcare associated pneumonia. Patient's troponin 1.44 and he underwent emergent LHC with findings as described above. He does have [id number] nonobstructive disease and his non-STEMI was likely due to type II WI in the setting of pneumonia. Patient has been advised to continue aspirin, Plavix, Crestor on discharge. Compliance has been an issue. He is being discharged to [facility]. Patient's blood pressure has been consistently low and he cannot tolerate beta konstantin or ACEi/ARB. Patient does have LV EF 25-30% severely dysfunction likely due to ischemic cardiomyopathy. He did not have any signs or symptoms of CHF exacerbation during his stay. Patient has been continued on his home dose of Celexa and Risperdal. He will need to continue these on discharge. Patient is currently back to baseline. He denies chest pain or shortness of breath. He states he feels better and has no other complaints. He had no other acute events or consultations during his stay in the hospital. No family members at the time of discharge. He has been explained about his condition and plan of care detail. He understood and agreed. No unanswered questions. Patient is tolerating oral diet well and ambulating well. He is being discharged in stable condition. Time spent discussing smoking cessation with patient: 3 to 10 minutes - Time Spent with Patient Total time spent providing and/or coordinating discharge services: Greater than 30 minutes - Constitutional Vitals: Temp Pulse Resp BP Pulse Ox 97.6 F 62 14 85/52 92 03/12/17 07:42 03/12/17 07:42 03/12/17 07:42 03/12/17 07:42 03/12/17 07:42 General appearance: Present: cooperative, A&O X 3, pleasant, no acute distress, answers questions appropriately - Head Head exam: Present: atraumatic - Eye Eye exam: Present: EOMI - ENT ENT exam: Present: mucous membranes moist - Respiratory Respiratory exam: Present: CTAB. Absent: rales, rhonchi, wheezes, tachypnea - Cardiovascular Cardiovascular exam: Present: RRR, +S1, +S2, systolic murmur - GI/Abdominal GI/Abdominal exam: Present: soft. Absent: distended, firm, guarding, tenderness - Extremities Exam Extremities exam: Present: radial pulses palpable and symmetrical. Absent: calf tenderness, cyanotic, pedal edema - Neurological Exam Neurological exam: Present: alert, oriented X3, no focal deficits. Absent: facial droop, speech deficit - VTE Reasons for not Prescribing Prophylaxis: Treatment not Indicated - Low risk for VTE Documentation of Mechanical Device: Intermittent pneumatic compression device
--- NOTE | 2017-03-12 09:59 | Physician Discharge Referral ---
ExtendedCare Referral Info Provider in Charge after Transfer: PCP Institutional Level of Care: Skilled - Diagnosis (1) Healthcare-associated pneumonia Priority: Primary Status: Acute (2) Non-ST elevation (NSTEMI) myocardial infarction Priority: Primary Status: Acute (3) Ischemic cardiomyopathy Priority: Primary Status: Chronic (4) CAD (coronary artery disease) Priority: Primary Status: Chronic (5) Bipolar disorder Priority: Secondary Status: Chronic (6) Hypertension Priority: Secondary Status: Chronic Prognosis: Good Aware of Diagnosis: Patient Aware of Prognosis: Patient - Transfer Medications Prescriptions: Ipratropium/Albuterol Neb [Duoneb] 3 ml IH [id number] PRN #30 inhsol PRN Reason: Shortness Of Breath/Wheezing Clopidogrel [Plavix] 75 mg PO DAILY #30 tablet levoFLOXacin [Levaquin] 750 mg PO DAILY 7 Days #7 tablet Home Medications: Citalopram Hydrobromide [Celexa] 40 mg PO DAILY 03/15/16 [History] risperiDONE [Risperidone] 1 mg PO DAILY 03/15/16 [History] Aspirin 81 mg PO DAILY #30 tab.chew 02/27/17 [Rx] Nitroglycerin 0.4 mg SL Q5MIN PRN #30 tab.subl 02/27/17 [Rx] Rosuvastatin [Crestor] 40 mg PO HS #30 tablet 02/27/17 [Rx] Clopidogrel [Plavix] 75 mg PO DAILY #30 tablet 03/12/17 [Rx] Ipratropium/Albuterol Neb [Duoneb] 3 ml IH [id number] PRN #30 inhsol 03/12/17 [Rx] levoFLOXacin [Levaquin] 750 mg PO DAILY 7 Days #7 tablet 03/12/17 [Rx] Allergies/Adverse Reactions: 3 Allergy/AdvReac Type Severity Reaction Status Date / Time No Known Allergies Allergy Verified 03/15/16 10:37 - Respiratory Orders Smoking Cessation: Smoking cessation has been advised. For more information, call the [employer] Quit Line at 6-241-ZXVK-NOW. - Ancillary Orders May use pressure relief devices daily prn - Advance Directives Code Status: Full Code - Mobility Orders Ambulate - Rehabiliation Orders Rehab Potential: Good Rehab Orders: Evaluation for Physical Therapy, Evaluation for Occupational Therapy - Treatments Skin tear care topically daily PRN per policy - Diet Orders Cardiac CERTIFICATION: I certify that the transfer of the above named patient to an Extended Care Facility is necessary for the continuing treatment of the diagnosis listed. The above information is true and accurate reflection of patient's current condition. Confidential - Redisclosure prohibited without a patient's written consent.
[2017-03-12] MEDS: Aspirin 81 MG TAB.CHEW PO SCH (11:34)
[2017-03-12] MEDS: Cefepime HCl 1,000 MG in Water for inj. (sterile) 10 ML IVP SCH (11:35)
[2017-03-12] MEDS: risperiDONE 1 MG TABLET PO SCH (11:37)
[2017-03-12] MEDS ORDERED: FLUARIX QUAD 2017-18 36MOS UP/PF 0.5 ML SYRINGE IM ONE (13:52)
[2017-03-12 15:15] VITALS: BP 94/65
== END 2017-03-12 16:40 | DRG 280 ==
LOC: EMEROO 22:36 → ICNU 22:36 → EMEROO 23:34 → ICNU 23:35 → 2NENU 03-08 16:51
PROVIDERS: ADMIT Nurse Practitioner Family; ATTEND Family Medicine

== ENCOUNTER 2017-03-20 23:55 | Inpatient (IN) ==
[2017-03-21] MEDS ORDERED: Aspirin 81 MG TAB.CHEW PO ONE (00:06)
[2017-03-21] MEDS ORDERED: *HR* Ticagrelor 90 MG TABLET PO ONE (00:06)
--- NOTE | 2017-03-21 00:10 | Emergency Department Note ---
Disposition Clinical Impression: Elevated troponin, ST segment changes on electrocardiogram Dyspnea Qualifiers: Dyspnea type: unspecified Qualified Code(s): R06.00 - Dyspnea, unspecified Pneumonia Qualifiers: Pneumonia type: due to unspecified organism Laterality: unspecified laterality Lung location: unspecified part of lung Qualified Code(s): J18.9 - Pneumonia, unspecified organism CHF exacerbation Qualifiers: Congestive heart failure type: unspecified congestive heart failure type Qualified Code(s): I50.9 - Heart failure, unspecified Disposition: Admitted As Inpatient Condition: Good Referrals: Juan M Gomez MD [Primary Care Provider] - Forms: ED Satisfaction Letter General Adult HPI - General Chief complaint: ED Chest Pain Stated complaint: KATHERINE/poss stemi Time Seen by Provider: 03/21/17 00:02 Source: EMS Limitations: no limitations Nursing Notes Reviewed: Yes Vital Signs Reviewed: Yes - History of Present Illness HPI Narrative: 61-year-old male who reports he woke up from sleep due to significant dyspnea. He has a history of a STEMI proximally one month ago. He had another STEMI alert called a little over one week ago and he went to the catheter lab but did not have new occlusive disease at that time. He does have a stent which is present. His original STEMI resulted in a reduced ejection fraction. He states that on his ride to the hospital his symptoms have significantly improved. He has minimal shortness of breath currently. His other medical problems include psychiatric conditions. Pain Scale: 0 Improves with: nothing Worsens with: nothing Associated symptoms: Reports: denies other symptoms Treatments Prior to Arrival: none - Related Data Home Medications Medication Instructions Recorded Confirmed Citalopram Hydrobromide [Celexa] 40 mg PO DAILY 03/15/16 03/08/17 risperiDONE [Risperidone] 1 mg PO DAILY 03/15/16 03/08/17 Previous Rx's Medication Instructions Recorded Aspirin 81 mg PO DAILY #30 tab.chew 02/27/17 Nitroglycerin 0.4 mg SL Q5MIN PRN #30 tab.subl 02/27/17 Rosuvastatin [Crestor] 40 mg PO HS #30 tablet 02/27/17 Clopidogrel [Plavix] 75 mg PO DAILY #30 tablet 03/12/17 Ipratropium/Albuterol Neb [Duoneb] 3 ml IH [id number] PRN #30 inhsol 03/12/17 Nicotine Patch [Nicoderm] 21 mg TD DAILY #30 patch.td24 03/12/17 levoFLOXacin [Levaquin] 750 mg PO DAILY 7 Days #7 tablet 03/12/17 Allergies Allergy/AdvReac Type Severity Reaction Status Date / Time No Known Allergies Allergy Verified 03/15/16 10:37 All systems ED: reviewed and negative except as stated. Constitutional: Denies: fever ENT ED: Denies: throat pain Cardiovascular: Denies: chest pain Respiratory: Reports: dyspnea Gastrointestinal: Denies: abdominal pain Musculoskeletal: Denies: back pain Integumentary: Denies: rash Past Medical History - Past Medical History Medical history: Reports: asthma, coronary artery disease, hypertension, kidney stones, seizures, other Surgical history: Reports: angioplasty/stent Psychiatric history: Reports: bipolar, depression, previous psychiatric hospitalization - Social History Smoking Status: Former smoker Smokeless Tobacco Status: No Alcohol use: Reports: none Drug use: Reports: none Physical Exam - General Limitations: no limitations General appearance: alert, in no apparent distress - Head Head exam: atraumatic - Eye Eye exam: Present: normal appearance, PERRL - ENT ENT exam: normal exam, normal oropharynx - Neck Neck exam: Present: normal inspection - Chest Chest inspection: Present: normal inspection - Respiratory Respiratory exam: Present: normal lung sounds bilaterally. Absent: respiratory distress - Cardiovascular Cardiovascular exam: Present: regular rate, normal rhythm - Abdominal Exam Abdominal exam: Present: soft, Non-Tender - Extremities Exam Extremities exam: Present: normal inspection - Neurological Exam Neurological exam: Present: alert, oriented X3 - Psychiatric Psychiatric exam: Present: normal affect, normal mood - Skin Skin exam: Present: warm, dry Course Course Narrative: On his arrival to the emergency department an EKG was performed which did show ST elevation in V2 through V5. STEMI alert was called. The patient was having dyspnea until he arrived in the emergency department. All of his symptoms have since resolved since he arrived in the emergency department. I spoke with Dr. Gifford the interventionalist who reviewed the EKG and the prior EKGs. The most recent to EKGs from approximately one week ago were identical to the one today. He did have the exact same STEMI activation last week and had a negative heart catheter. However proximally one month ago he did have another STEMI activation which did require stenting. He is currently on Plavix. As of now he is 100% pain-free. His vital signs are stable. His troponin is elevated but it is substantially decreased from 1 week ago. It is likely still resolving. Dr. Gifford with cardiology recommended to trend his troponin. We will admit. Re-evaluated. Still asymptomatic. CXR shows worsening opacities and he has a mildly elevated leukocytosis. Will empirically treat for pneumonia. Hospitalist has been paged. Vital Signs Temperature 98.5 F 03/20/17 23:59 Pulse Rate 93 03/20/17 23:59 Respiratory Rate 20 03/20/17 23:59 Blood Pressure 100/65 03/20/17 23:59 O2 Sat by Pulse Oximetry 94 03/20/17 23:59 Temperature 98.5 F 03/20/17 23:59 Pulse Rate 83 03/21/17 02:42 Respiratory Rate 30 03/21/17 02:42 Blood Pressure 107/68 03/21/17 02:42 O2 Sat by Pulse Oximetry 97 03/21/17 02:42 Oxygen Delivery Oxygen Delivery Nasal Cannula Medical Decision Making - Medical Records Medical records reviewed: Yes I reviewed the patient's medical records. - Lab Data Lab results reviewed: Yes I reviewed the patient's lab results. Result diagrams: 03/21/17 00:21 03/21/17 00:21 Lab Results 03/21/17 03/21/17 03/21/17 Range/Units 00:21 00:21 00:21 WBC 11.3 H (4.3-11.1) K/mcL RBC 3.77 L (4.19-5.50) M/mcL Hgb 11.1 L (12.9-16.9) g/dL Hct 33.8 L (37.5-50.1) % MCV 89.7 (83.0-100.0) fL MCH 29.4 (28.0-33.3) pg MCHC 32.8 (31.6-35.5) g/dL RDW 13.4 (11.5-14.5) % Plt Count 315 (140-400) K/mcL MPV 9.9 (9.4-12.4) fL Immature Gran % 0.4 (0-4) % Seg Neutrophils % 83.4 % Lymphocytes % 6.6 % Monocytes % 8.7 % Eosinophils % 0.5 % Basophils % 0.4 % Neutrophils # 9.4 H (1.6-8.9) K/mcL Lymphocytes # 0.8 (0.6-4.6) K/mcL Monocytes # 1.0 (0.0-1.3) K/mcL Eosinophils # 0.1 (0.0-0.6) K/mcL Basophils # 0.1 (0.0-0.2) K/mcL PT 15.1 H (9.4-12.1) Seconds INR 1.4 APTT 27.1 (26.0-36.0) Seconds Sodium 133 L (136-145) mEq/L Potassium 4.0 (3.5-4.5) mEq/L Chloride 104 (98-109) mEq/L Carbon Dioxide 23 (19-29) mEq/L BUN 12 (8-26) mg/dL Creatinine 0.87 (0.72-1.25) mg/dL Est GFR ( Amer) > 60 (> 60) Est GFR (Non-Af Amer) > 60 (> 60) BUN/Creatinine Ratio 14 (6-26) Glucose 122 H (70-99) mg/dL Calculated Osmolality 277 L (280-300) Calcium 8.4 L (8.6-10.8) mg/dL Magnesium 1.8 (1.6-2.6) mg/dL Troponin I (0-0.03) ng/mL 03/21/17 Range/Units 00:21 WBC (4.3-11.1) K/mcL RBC (4.19-5.50) M/mcL Hgb (12.9-16.9) g/dL Hct (37.5-50.1) % MCV (83.0-100.0) fL MCH (28.0-33.3) pg MCHC (31.6-35.5) g/dL RDW (11.5-14.5) % Plt Count (140-400) K/mcL MPV (9.4-12.4) fL Immature Gran % (0-4) % Seg Neutrophils % % Lymphocytes % % Monocytes % % Eosinophils % % Basophils % % Neutrophils # (1.6-8.9) K/mcL Lymphocytes # (0.6-4.6) K/mcL Monocytes # (0.0-1.3) K/mcL Eosinophils # (0.0-0.6) K/mcL Basophils # (0.0-0.2) K/mcL PT (9.4-12.1) Seconds INR APTT (26.0-36.0) Seconds Sodium (136-145) mEq/L Potassium (3.5-4.5) mEq/L Chloride (98-109) mEq/L Carbon Dioxide (19-29) mEq/L BUN (8-26) mg/dL Creatinine (0.72-1.25) mg/dL Est GFR ( Amer) (> 60) Est GFR (Non-Af Amer) (> 60) BUN/Creatinine Ratio (6-26) Glucose (70-99) mg/dL Calculated Osmolality (280-300) Calcium (8.6-10.8) mg/dL Magnesium (1.6-2.6) mg/dL Troponin I 0.23 H* (0-0.03) ng/mL - Radiology Data Radiology results reviewed: Yes I reviewed the patient's radiology results. - EKG Data EKG #1 EKG attestation: Yes I reviewed and interpreted this EKG. EKG shows normal: sinus rhythm Rate: normal Rhythm: NSR ST segment elevation in: v2, v3, v4, v5 T wave inversions noted in: v3, v4, v5 When compared to previous EKG there are: no significant changes Interpretation: other (Acute STEMI) Attestation Statement - Attestation Attestation: I, Koby Sheikh MD, personally evaluated this patient and discussed their management with the resident physician. I reviewed the resident's note and agree with the documented findings, medical decision making, and plan of care. 61-year-old male presents to the emergency department by EMS with a complaint of shortness of breath and an episode of chest pain at about 1-2 hours prior to arrival. Patient just had a STEMI about 4 weeks ago and had a catheterization with stents. He was seen here again about 2 weeks ago with similar lebron- lateral ST segments elevation. He had a repeat cardiac catheter with no new findings. He returns tonight with the same symptoms. He again has ST elevations consistent with a STEMI however after comparison to his previous EKGs these changes all appeared to be the same. A STEMI alert was called initially but after consultation with the radiotelegraphist, Dr. Gifford , he recommended just admitting the patient and trending troponins. Patient was found to have an elevated troponin of 0.23 however 2 weeks ago it was in the range of 1.8 and 1.4. Patient pain free. On examination patient is a well-developed well-nourished male in no acute distress. He is alert and oriented 3. There is no cyanosis or diaphoresis. Chest is nontender to palpation. Breath sounds are clear and equal bilaterally. Heart regular rate and rhythm. Abdomen soft and nontender with normal bowel sounds. No pedal edema. Labs reviewed. EKG shows some lebron-lateral ST segment elevations. Dr. Diehl discussed with the radiotelegraphist instructional developer, Dr. Gifford. We will consult the hospitalist for admission.
[2017-03-21 00:30] LABS: Basophils # 0.1 K/mcL (0.0-0.2); Basophils % 0.4 %; Eosinophils # 0.1 K/mcL (0.0-0.6); Eosinophils % 0.5 %; Hematocrit 33.8 % (37.5-50.1); Hemoglobin 11.1 g/dL (12.9-16.9); Immature Granulocytes % 0.4 % (0-4); Lymphocytes # 0.8 K/mcL (0.6-4.6); Lymphocytes % 6.6 %; Mean Corpuscular HGB Conc 32.8 g/dL (31.6-35.5); Mean Corpuscular Hemoglobin 29.4 pg (28.0-33.3); Mean Corpuscular Volume 89.7 fL (83.0-100.0); Mean Platelet Volume 9.9 fL (9.4-12.4); Monocytes % 8.7 %; Neutrophils # 9.4 K/mcL (1.6-8.9); Platelet Count 315 K/mcL (140-400); Red Blood Count 3.77 M/mcL (4.19-5.50); Red Cell Distribution Width 13.4 % (11.5-14.5); Segmented Neutrophils % 83.4 %
[2017-03-21 00:37] LABS: INR 1.4; Prothrombin Time 15.1 Seconds (9.4-12.1)
[2017-03-21 00:40] LABS: Activated Partial Thrombo Time 27.1 Seconds (26.0-36.0)
[2017-03-21 00:44] LABS: BUN/Creatinine Ratio 14 (6-26); Blood Urea Nitrogen 12 mg/dL (8-26); Calcium 8.4 mg/dL (8.6-10.8); Carbon Dioxide 23 mEq/L (19-29); Chloride 104 mEq/L (98-109); Glucose 122 mg/dL (70-99); Magnesium 1.8 mg/dL (1.6-2.6); Osmolality,Calculated 277 (280-300); Sodium 133 mEq/L (136-145); eGFR For African Americans > 60 (> 60); eGFR For Non-African Americans > 60 (> 60)
[2017-03-21] MEDS ORDERED: Vancomycin 1,000 MG in D5% in Water 250 ML IVPB ONE (03:00)
[2017-03-21] MEDS ORDERED: Piperacillin/Tazobactam 3.375 GM in D5% in Water (Mini-Bag+) 100 ML IVPB ONE (03:00)
[2017-03-21] MEDS ORDERED: Furosemide 40 MG/4 ML VIAL IVP ONE (03:14)
[2017-03-21] MEDS ORDERED: Ibuprofen 400 MG TABLET PO PRN (03:53)
[2017-03-21] MEDS ORDERED: Ondansetron 4 MG/2 ML VIAL IVP PRN (03:53)
[2017-03-21] MEDS ORDERED: Ketorolac 30 MG/ML VIAL IVP PRN (03:53)
[2017-03-21] MEDS ORDERED: Naloxone 0.4 MG/ML INJ IVP PRN (03:53)
--- NOTE | 2017-03-21 04:00 | Internal Med History&Physical ---
Date of Encounter: 03/21/17 Time of Encounter: 03:55 Assessment and Plan (1) Pulmonary edema Current visit: Yes Status: Acute - Acute unilateral pulmonary edema as seen on CXR in ED. - Likely secondary to decreased LV function from STEMI - Most recent echo last month shows EFof 25-30%. Repeat echo ordered for morning. - Acute onset SOB without fevers, chills, sputum changes makes diagnosis of pneumonia less likely. WBC possibly reactive. Will hold off abx for now. - Will give Lasix 40 mg IV Qday. Will likely require home dose of lasix on discharge. Qualifiers: Chronicity: acute Qualified Code(s): J81.0 - Acute pulmonary edema (2) ST segment changes on electrocardiogram Current visit: Yes Status: Acute - EKG showing ST elevation in V2-V5, no change from EKG on 03/10. Q waves present, likely indicating scar tissue from [place] - Persistent ST elevation from previous may be secondary to possible LV aneurysm vs scar tissue - Repeat echocardiogram pending to r/o LV aneurysm - Trop of 0.23, decreased from last visit on 03/10 of 1.44. - Heparin drip started. - Given full dose ASA and brillenta in ED. Interventional cardiology called in ED. - Cardiology recommend trending troponins, will see. (3) Elevated troponin Current visit: Yes Status: Acute - Trop of 0.23 in ED. - Possibility of downtrending from previous visit. Was 1.44 then. - Will trend x3. - Further management as above. (4) CHF exacerbation Current visit: Yes Status: Acute - Last EF of 25-30% on previous Echo - not on any home lasix. - CXR shows evidence of pulmonary edema - Will give lasix 40 mg IV qday. Will likely need home prescription upon discharge. Qualifiers: Congestive heart failure type: combined Qualified Code(s): I50.43 - Acute on chronic combined systolic (congestive) and diastolic (congestive) heart failure (5) Hypertension Current visit: No Status: Chronic - BP well controlled in ED, boarderline low. - Will hold BP meds until seen by cardiology Qualifiers: Hypertension type: essential hypertension Qualified Code(s): I10 - Essential (primary) hypertension (6) DVT prophylaxis Current visit: No Status: Acute - Started on heparin drip for ACS protocol Internal Medicine - H&P: HPI Chief complaint: SOB Admitted From: Emergency Dept Plans for Post Hospital Care: Home History of present illness: Mr. Preciado is a 61 year old male who presents to emergency department with chief complaint of chest pain starting approximately 7 PM this evening. Of note , he recently suffered an STEMI approximately one month ago requiring left heart catheterization with 1 stent placed. He also presented last week with similar symptoms of chest pain, shortness of breath with ST elevation on EKG. He underwent left heart catheterization again and no further occlusion was found and no stent was placed. This episode he describes as very similar to his episode last week. He states that his shortness of breath and chest pain occurred at rest, and last approximately 10 minutes before resolving on its own. His chest pain he describes as sharp in nature and is located substernally with radiation along the left lower chest. He states his symptoms are nonexertional, however thinks that the nitroglycerin he received in the ambulance did help. Currently he is asymptomatic and resting comfortably. He denies any symptoms of fevers, chills, weakness, lightheadedness, nausea, vomiting, change in bowel movement. He does admit to a chronic cough with thin yellow sputum and dysuria occasionally. In the emergency department, patient's vital signs were significant for tachypnea. EKG shows ST elevations in V2 to V5, change since last week. Lab results significant for mild white blood cell count elevation, elevated troponin of 0.23, however this is down trending from last week's visit at 1.44. Interventional cardiology was called emergency department, date that they advised trending troponins and they will evaluate the patient. Past Med Surg Social Fam HX - Past Medical History Medical history: asthma, coronary artery disease, hypertension, kidney stones, seizures, other Psychiatric history: bipolar, depression, previous psychiatric hospitalization - Past Surgical History Surgical History: angioplasty/stent - Social History Smoking Status: Former smoker Smokeless Tobacco Status: No Alcohol use: none Drug use: none - Family History Father Living Status: Hx Family Cardiac Disorders: Yes Mother Living Status: Internal Medicine - H&P: Meds Citalopram Hydrobromide [Celexa] 40 mg PO DAILY 03/15/16 [History] risperiDONE [Risperidone] 1 mg PO DAILY 03/15/16 [History] Aspirin 81 mg PO DAILY #30 tab.chew 02/27/17 [Rx] Nitroglycerin 0.4 mg SL Q5MIN PRN #30 tab.subl 02/27/17 [Rx] Rosuvastatin [Crestor] 40 mg PO HS #30 tablet 02/27/17 [Rx] Clopidogrel [Plavix] 75 mg PO DAILY #30 tablet 03/12/17 [Rx] Ipratropium/Albuterol Neb [Duoneb] 3 ml IH [id number] PRN #30 inhsol 03/12/17 [Rx] Nicotine Patch [Nicoderm] 21 mg TD DAILY #30 patch.td24 03/12/17 [Rx] levoFLOXacin [Levaquin] 750 mg PO DAILY 7 Days #7 tablet 03/12/17 [Rx] 3 Allergy/AdvReac Type Severity Reaction Status Date / Time No Known Allergies Allergy Verified 03/15/16 10:37 All Systems PM: A 10-system review of systems was performed and is negative for pertinent findings except as documented above in the HPI. - Constitutional Constitutional: fatigue, no anorexia, no chills, no fever(s), no lethargy - Cardiovascular Cardiovascular ROS IM: chest pain, dyspnea, lightheadedness, no diaphoresis, no dyspnea on exertion, no edema, no irregular heart rhythm, no palpitations, no syncope - Respiratory Respiratory: cough, dyspnea, hemoptysis, no excessive phlegm production, no change in phlegm color, no pain with cough - Gastrointestinal Gastrointestinal: no abdominal pain, no constipation, no cramping, no diarrhea, no nausea, no vomiting - Genitourinary Genitourinary ROS male: dysuria - Neurological Neurological ROS: no focal weakness, no headache(s), no numbness, no tingling, no weakness - Constitutional Vitals: Temp Pulse Resp BP Pulse Ox 98.5 F 83 30 107/68 97 03/20/17 23:59 03/21/17 02:42 03/21/17 02:42 03/21/17 02:42 03/21/17 02:42 Exam: Gen.: Vitals noted. No acute distress. AAOx3 HEENT: PERRL oropharynx clear, Normocephalic, atraumatic, MMM Cardiac: RRR, no murmur, +S1/S2 Pulmonary:Diffuse wheezing throughout. equal chest expansion Abdomen: soft, nontender, BS noted, no guarding MSK: ROM intact, no joint swelling noted Extremities: no BLE edema, nontender calf, no cyanosis or clubbing Neuro: A&Ox3, moves all extremities, no focal deficits Psych: Appropriate mood and behavior Internal Med - H&P Results - Labs CBC & Chem 7: 03/21/17 00:21 03/21/17 00:21
[2017-03-21] MEDS ORDERED: Heparin 25,000 UNIT/500 ML D5W 25,000 UNIT/500 ML MLS IVC SCH (04:30)
--- NOTE | 2017-03-21 05:37 | Event Note ---
Date of Encounter: 03/21/17 Time of Encounter: 05:34 Patient and examined with medical aide. Patient presents with acute pulmonary edema he had a recent STEMI about 1 month ago after which he had Q waves and persistent ST segment elevation in anterior precordial leads suggestive of scar formation versus aneurysm. Ejection fraction is 25 to 30%. Patient presented twice for acute pulmonary edema the past 2 weeks. He will need to be on Lasix at home (he is currently not). Will check echocardiogram to see if there is any aneurysm formation. Give patient IV Lasix. Appreciate cardiology input. Full code
[2017-03-21] MEDS ORDERED: *HR* Heparin 5,000 UNIT/ML VIAL IVP PRN ×2 (05:39)
[2017-03-21] MEDS: Heparin 25,000 UNIT/500 ML D5W 25,000 UNIT/500 ML MLS IVC SCH ×2 (06:12→23:53)
--- NOTE | 2017-03-21 08:32 | Event Note ---
<Benjie Alejandra - Last Filed: 03/21/17 13:30> Date of Encounter: 03/21/17 Time of Encounter: 08:32 Subjective: Patient seen and examined. Patient denies any chest hutton or SOB at this time. He denies fever, chills, abd pain, N,V,D, refulx, bleeding, or leg edema. Patient's serial troponin increased from 0.23 to 0.29. He is currently NPO, on Heparin ggt, and awaiting further cardiology recommendations. Objective: GENERAL: WN/WD male in NAD HEENT: NC/AT, MM dry NECK: No carotid bruits, non-tender CV: RRR, no M/R/G RESP: CTAB, no wheezes GI: soft, + BS all 4 quadrants, NT EXTREMITIES: No pedal edema, peripheral pulses intact SKIN: Warm and dry, normal color PSYCH: Normal mood and affect NEURO: No focal deficits Lab Results, Last 24 hours 03/21/17 03/21/17 03/21/17 00:21 00:21 00:21 WBC 11.3 H Hgb 11.1 L Hct 33.8 L Plt Count 315 INR 1.4 APTT 27.1 Sodium 133 L Potassium 4.0 Chloride 104 Carbon Dioxide 23 BUN 12 Creatinine 0.87 Glucose 122 H Calcium 8.4 L Magnesium 1.8 Troponin I 03/21/17 03/21/17 03/21/17 00:21 06:22 12:14 WBC Hgb Hct Plt Count INR APTT Sodium Potassium Chloride Carbon Dioxide BUN Creatinine Glucose Calcium Magnesium Troponin I 0.23 H* 0.29 H* 0.23 H* Assessment: 1) STEMI 2) Chronic systolic CHF, not in exacerbation 3) Essential HTN 4) Seizure disorder 5) Bipolar disorder 6) DVT prophylaxis Plan: 1) Patient's serial troponin increased from 0.23 --> 0.29 --> 0.23. He is currently on Heparin ggt and awaiting further cardiology recommendations. Continue serial troponins, ASA, Plavix, statin, and telemetry monitoring. 2) Repeat echocardiogram pending 3) Lasix and Lisinopril 4) Continue home meds <Purnima Larkin - Last Filed: 03/21/17 14:37> Date of Encounter: 03/21/17 I have seen and examined the patient independently. I have discussed with resident physician Dr Alejandra regarding the management plan. Agree with the documentation. Patient did feel much better with the shortness of breath after Lasix use. 3 sets of troponin tracked, generally flat. Consider CHF exacerbation as pt has pulmonary edema, SOB, and Hx of systolic CHF. Will continue IV Lasix. Will continue heparin drip per cardiology. F/U echo result. Continue closely monitor patient.
[2017-03-21] MEDS: Aspirin 81 MG TAB.CHEW PO SCH (10:36)
[2017-03-21] MEDS: Furosemide 40 MG/4 ML VIAL IVP SCH (10:36)
[2017-03-21] MEDS: Ipratropium/Albuterol Neb 3 ML IH SCH ×2 (10:43→16:22)
--- NOTE | 2017-03-21 11:21 | Cardiology Consult Note ---
Date of Encounter: 03/21/17 Time of Encounter: 12:02 Assessment and Plan (1) Chest pain Current Visit: Yes Status: Acute chest pain, SOB, and coughing. Patient uses 4 pillows at night but has not needed more. Patient is on Aspirin and plavix. Chest pain is described as substernal pain. He is currently not having pain but has been having intermittent chest pain since cath at rest and when walking. Recent STEMI with [facility] on 02/22/17 with SAMINA in proximal LAD and mid circ and negative recathed on 03/07/17. EKG shows ST elevation in V2-V5 but consistent with prior EKG from . CXR shows worsening bilateral pulmonary opacities. HR and blood pressure have been within normal limits. Patient on 2L nasal cannula but does not wear home oxygen. Troponin's since arrival have been 0.23 to 0.29. Patient was placed on a heparin drip. Plan: - continue heparin drip for now - Diet: Cardiac - trend Troponins - continue telemetry - continue lisinopril, Asa, and Plavix - will discuss further recommendations for management with Dr. Mann Qualifiers: Chest pain type: unspecified Qualified Code(s): R07.9 - Chest pain, unspecified Discussion w patient/family: The assessment and plan as outlined above was discussed with the patient and/or family members who expressed understanding and agreement. All questions were answered. Thank you for involving us in the care of your patient. Please call with any questions. History of Present Illness Consult date: 03/21/17 Consult reason: chi Chief complaint: 61 yo M admitted for pulm edema and elevated troponin. H/o C on 02/22/17 History of present illness: Mr. Preciado is a 61 year old male past medical history of hypertension, seizures , bipolar disorder, former smoker (quit 1 mo ago) recent STEMI with [facility] on 02/22 with SAMINA in proximal LAD and mid circ and negative recathed on 03/07/17 presented the ED after having increase shortness of breath after walking around his house. He states that he did have some chest pain substernally at the time but has been having intermittent chest pain since having his cath. ED notes states that patient's SOB resolved by the time he arrived at the ED. Patient is currently not having chest pain but is still having some SOB. Patient admits to associated new onset of cough and rhinorrhea. Denies fever, chills, N/V, sweating. EKG today that shows ST elevation in V2-V5 which was also elevated 1 week ago. CXR shows worsening bilateral pulmonary opacities. HR and blood pressure have been within normal limits. Patient on 2L nasal cannula but does not wear home oxygen. Troponin's since arrival have been 0.23 to 0.29. Past Med Surg Social Fam HX - Past Medical History Medical history: asthma, coronary artery disease, hypertension, kidney stones, seizures, other Psychiatric history: bipolar, depression, previous psychiatric hospitalization - Past Surgical History Surgical History: angioplasty/stent - Social History Smoking Status: Former smoker Smokeless Tobacco Status: No Alcohol use: none Drug use: none - Family History Father Living Status: Hx Family Cardiac Disorders: Yes Mother Living Status: Medications and Allergies Citalopram Hydrobromide [Celexa] 40 mg PO DAILY 03/15/16 [History] risperiDONE [Risperidone] 1 mg PO DAILY 03/15/16 [History] Aspirin 81 mg PO DAILY #30 tab.chew 02/27/17 [Rx] Nitroglycerin 0.4 mg SL Q5MIN PRN #30 tab.subl 02/27/17 [Rx] Rosuvastatin [Crestor] 40 mg PO HS #30 tablet 02/27/17 [Rx] Clopidogrel [Plavix] 75 mg PO DAILY #30 tablet 03/12/17 [Rx] Ipratropium/Albuterol Neb [Duoneb] 3 ml IH [id number] PRN #30 inhsol 03/12/17 [Rx] levoFLOXacin [Levaquin] 750 mg PO DAILY 7 Days #7 tablet 03/12/17 [Rx] 3 Allergy/AdvReac Type Severity Reaction Status Date / Time No Known Allergies Allergy Verified 03/21/17 07:09 All Systems Review: A 10-system review of systems was performed and is negative for pertinent findings except as documented above in the HPI. Physical Examination Vital Signs, Last 4 Hours Temp Pulse Resp BP Pulse Ox 03/21/17 09:20 94 03/21/17 09:18 71 14 88/69 94 03/21/17 08:09 98.7 F 79 20 97/58 94 General: Conversant, No Apparent Distress HEENT: Atraumatic, Normocephaly, Mucus Membranes Moist Neck: No JVD Cardiac: Reg Rate and Rhythm, Normal S1 and S2, No Murmur Lungs: Normal Breath Sounds, No Wheeze, Rales, Rhonchi Neuro: Alert and responsive, No focal deficits noted Abdomen: Soft, Non-Tender Skin: No rashes noted on visualized skin Extremities: No Clubbing, No Cyanosis, No Edema, Normal Pulses Results 03/21/17 00:21 03/21/17 00:21 - Imaging and Cardiology Chest Xray: report reviewed - EKG Interpretation EKG results cardiology: personally reviewed (ST elevation in V2- V5, similar to prior study 03/13/17. Regular rate and rhythm.) Consult Discharge Plan - Plan Referrals: Juan M Gomez MD [Primary Care Provider] -
[2017-03-21] MEDS ORDERED: Nitroglycerin 0.4 MG TAB.SUBL SL PRN (13:31)
[2017-03-21] MEDS ORDERED: Ipratropium/Albuterol Neb 3 ML IH PRN (18:15)
--- NOTE | 2017-03-21 19:36 | Electrocardiograph Report ---
[place] [id number] Test Date: 2017-03-21 Pat Name: Benjie Preciado Department: 103 Room: 2N0 Gender: M [employer] Tr[employer]: SHAI : 1955 Requested By: Cuco Diehl Order Number: [id number] Reading MD: Raymond Mann MD Measurements Intervals [place] Rate: 95 P: 31 [place]: 161 QRS: 270 QRSD: 89 T: 147 QT: 365 QTc: 417 Interpretive Statements SINUS RHYTHM ANTEROLATERAL Q WAVE MYOCARDIAL INFARCTION, AGE UNDETERMINED Electronically Signed On 03-21-2017 19:34:33 EST by Raymond Mann MD
[2017-03-22 02:22] LABS: BUN/Creatinine Ratio 11 (6-26); Blood Urea Nitrogen 9 mg/dL (8-26); Calcium 8.6 mg/dL (8.6-10.8); Carbon Dioxide 23 mEq/L (19-29); Chloride 102 mEq/L (98-109); Glucose 95 mg/dL (70-99); Osmolality,Calculated 282 (280-300); Potassium 3.7 mEq/L (3.5-4.5); Sodium 137 mEq/L (136-145); eGFR For African Americans > 60 (> 60); eGFR For Non-African Americans > 60 (> 60)
[2017-03-22 02:31] LABS: Basophils # 0.1 K/mcL (0.0-0.2); Basophils % 1.1 %; Eosinophils # 0.2 K/mcL (0.0-0.6); Hematocrit 35.2 % (37.5-50.1); Hemoglobin 11.7 g/dL (12.9-16.9); Immature Granulocytes % 0.4 % (0-4); Lymphocytes # 1.8 K/mcL (0.6-4.6); Lymphocytes % 23.9 %; Mean Corpuscular HGB Conc 33.2 g/dL (31.6-35.5); Mean Corpuscular Hemoglobin 29.4 pg (28.0-33.3); Mean Corpuscular Volume 88.4 fL (83.0-100.0); Mean Platelet Volume 10.3 fL (9.4-12.4); Monocytes # 0.8 K/mcL (0.0-1.3); Monocytes % 10.7 %; Neutrophils # 4.7 K/mcL (1.6-8.9); Platelet Count 341 K/mcL (140-400); Red Blood Count 3.98 M/mcL (4.19-5.50); Red Cell Distribution Width 13.5 % (11.5-14.5); Segmented Neutrophils % 61.9 %
--- NOTE | 2017-03-22 07:26 | Internal Med Progress Note ---
<Benjie Alejandra - Last Filed: 03/22/17 13:57> Date of Encounter: 03/22/17 Time of Encounter: 07:24 - Assessment and plan (1) STEMI (ST elevation myocardial infarction) Current Visit: No Status: Acute Assessment and plan: Serail Troponins adynamic. Heparin ggt discontinued Recent repeat LHC 03/07/17 shows patent stents. No significant EKG changes. Cardiology/ Dr. Mann determined present symptoms atypical CP, does not suspect ACS-- suspect elevated troponins due to CHF exacerbation. Cardiology recommends titrating medical therapy continue lisinopril, ASA, and Plavix Started on Metoprolol Qualifiers: Involved coronary artery: LAD coronary artery Qualified Code(s): I21.02 - ST elevation (STEMI) myocardial infarction involving left anterior descending coronary artery (2) CAD (coronary artery disease) Current Visit: No Status: Chronic Assessment and plan: LHC on 02/22/17 with SAMINA in proximal LAD and mid circ and negative repeat cath on 03/07/17 Continue lisinopril, Asa, and Plavix Cardiology started Metoprolol Qualifiers: Coronary Disease-Associated Artery/Lesion type: [place] artery [place] vs. transplanted heart: [place] heart Associated angina: without angina Qualified Code(s): I25.10 - Atherosclerotic heart disease of [place] coronary artery without angina pectoris (3) Acute on chronic systolic CHF (congestive heart failure) Current Visit: Yes Status: Acute Assessment and plan: CHF exacerbation as pt has pulmonary edema, SOB, and Hx of systolic CHF. Suspect elevated troponins due to CHF exacerbation. Patient felt much better with the shortness of breath after Lasix use. 02/22/17 Echo revealed EF 25-30% 03/21/17 Repeat Echo reveals LVEF 30% with severe systolic dysfunction Continue Lisinoprl Started Metoprolol Lasix 20mg PO daily Will need repeat echo in outpatient setting to evaluate for potential need for ICD within 3 months (4) Hypertension Current Visit: Yes Status: Chronic Assessment and plan: Continue Lisinoprl Started Metoprolol Lasix 20mg PO daily Qualifiers: Hypertension type: essential hypertension Qualified Code(s): I10 - Essential (primary) hypertension (5) Bipolar disorder Current Visit: No Status: Chronic Assessment and plan: Continue home meds Qualifiers: Active/Remission status: in remission of unspecified degree Qualified Code( s): F31.70 - Bipolar disorder, currently in remission, most recent episode unspecified (6) Seizure disorder Current Visit: Yes Status: Acute Assessment and plan: Continue home meds Seizure precautions (7) DVT prophylaxis Current Visit: No Status: Acute Assessment and plan: Heparin ggt discontinued Encourage Ambulation - Subjective Interval history: Patient seen and examined. Patient reports mild frontal headache and denies any further complaints at this time. Patient is asking for breakfast. He has been hypotensive since starting new beta konstantin. Case discussed with granddaughter at bedside and all questions were answered. - Constitutional Vitals: Temp Pulse Resp BP Pulse Ox 98.5 F 78 14 109/80 95 03/22/17 06:58 03/22/17 06:58 03/22/17 06:58 03/22/17 06:58 03/22/17 06:58 General appearance: Present: cooperative, A&O X 3, pleasant, no acute distress, answers questions appropriately - Head Head exam: Present: atraumatic, normal inspection, normocephalic - Eye Eye exam: Present: PERRL, conjuntiva pink, sclera anicteric - ENT ENT exam: Present: mucous membranes moist, normal oropharynx - Neck Neck exam general surgery: Present: normal inspection, supple. Absent: thyromegaly - Respiratory Respiratory exam: Present: CTAB. Absent: rhonchi, wheezes - Cardiovascular Cardiovascular exam: Present: RRR, +S1, +S2 - GI/Abdominal GI/Abdominal exam: Present: normal bowel sounds, soft. Absent: distended, guarding, tenderness - Additional comments: no fay - Extremities Exam Extremities exam: Present: normal inspection, warm. Absent: pedal edema, tenderness - Back Exam Back exam: Present: normal inspection. Absent: paraspinal tenderness, tenderness - Neurological Exam Neurological exam: Present: alert, oriented X3, no focal deficits. Absent: speech deficit - Psychiatric Psychiatric exam: Present: normal affect, normal mood. Absent: homicidal ideation, suicidal ideation - Skin Skin exam: Present: dry, normal color, warm Internal Medicine: Result - Labs CBC & Chem 7: 03/22/17 01:55 03/22/17 01:55 Labs: Short CBC 03/22/17 Range/Units 01:55 WBC 7.5 (4.3-11.1) K/mcL Hgb 11.7 L (12.9-16.9) g/dL Hct 35.2 L (37.5-50.1) % Plt Count 341 (140-400) K/mcL Neutrophils # 4.7 (1.6-8.9) K/mcL BMP 03/22/17 01:55 Sodium 137 Potassium 3.7 Chloride 102 Carbon Dioxide 23 BUN 9 Creatinine 0.84 Glucose 95 Calcium 8.6 Cardiac Enzymes 03/21/17 03/21/17 Range/Units 12:14 18:36 Troponin I 0.23 H* 0.21 H* (0-0.03) ng/mL - ABG Interpretation ABG results: PT/INR, D-dimer PT 15.1 Seconds (9.4-12.1) H 03/21/17 00:21 - Pulse Oximetry Interpretation Digit-Finger Pulse Oximetry Readin (on 2L NC) Actions taken: other (turned off O2 and SpO2 97%) Consult Discharge Plan - Plan Referrals: Osorio Forman MD [Non-Partnered Physician] - 04/16/17 9:15 am <Purnima Larkin - Last Filed: 03/22/17 17:28> Date of Encounter: 03/22/17 - Constitutional Vitals: Temp Pulse Resp BP Pulse Ox 98.3 F 77 12 90/60 96 03/22/17 15:31 03/22/17 15:31 03/22/17 15:31 03/22/17 15:31 03/22/17 15:31 Internal Medicine: Result - Labs CBC & Chem 7: 03/22/17 01:55 03/22/17 01:55 Labs: Short CBC 03/22/17 Range/Units 01:55 WBC 7.5 (4.3-11.1) K/mcL Hgb 11.7 L (12.9-16.9) g/dL Hct 35.2 L (37.5-50.1) % Plt Count 341 (140-400) K/mcL Neutrophils # 4.7 (1.6-8.9) K/mcL BMP 03/22/17 01:55 Sodium 137 Potassium 3.7 Chloride 102 Carbon Dioxide 23 BUN 9 Creatinine 0.84 Glucose 95 Calcium 8.6 Cardiac Enzymes 03/21/17 Range/Units 18:36 Troponin I 0.21 H* (0-0.03) ng/mL - ABG Interpretation ABG results: PT/INR, D-dimer PT 15.1 Seconds (9.4-12.1) H 03/21/17 00:21 - Attending Attestation I have seen and examined patient independently. I have discussed with the resident physician Dr. Alejandra regarding the management plan. Agree with the documentation. Patient is pain-free. Shortness of breath has improved. Repeat echo shows EF 30%. Low-dose beta konstantin and Lasix added per cardiology. Patient has good urine output with fluid balance -4 L. Will closely monitor BP on new meds as patient has relatively low baseline blood pressure.
--- NOTE | 2017-03-22 08:53 | Cardiology Progress Note ---
Date of Encounter: 03/22/17 Time of Encounter: 09:00 Assessment and Plan (1) Elevated troponin Current Visit: Yes Status: Acute Per Cardiology: Peak troponin 0.50 early February 2017 with initial event. Peak troponin 1.82 in February 2017 with repeat catheterization showing patent stents. Current hospital stay with peak troponin 0.29, downward trend. Discussed and reviewed with Dr. Mann, atypical CP, do not suspect ACS-- suspect elevated troponins due to CHF exacerbation. Will s/o, re-consult PRN, f/u scheduled. Will order CR consult (if not previously done during previous stays-- recent STEMI). Patient verbalized understanding and agreed with plan. (2) CAD (coronary artery disease) Current Visit: No Status: Chronic Per Cardiology: History of CAD with catheterization in early February 2017 (STEMI)-- with SAMINA to 100% proximal LAD lesion and SAMINA to mid circumflex 95% lesion. Patient had jailed diagonal 1 with 60% ostial stenosis. Most recent catheterization late February 2017 which showed proximal LAD patent stents, mid LAD 60% lesion, distal circumflex 40%, proximal RCA 25%. Currently chest pain-free. We'll discontinue IV heparin drip. On aspirin, Plavix, statin, ANA inhibitor. We'll add low-dose beta konstantin. Qualifiers: Coronary Disease-Associated Artery/Lesion type: [place] artery [place] vs. transplanted heart: [place] heart Associated angina: without angina Qualified Code(s): I25.10 - Atherosclerotic heart disease of [place] coronary artery without angina pectoris (3) Ischemic cardiomyopathy Current Visit: No Status: Chronic Per Cardiology: EF 25-30% on echo February 2017. According to records patient net - 3809ml. we' ll DC IV Lasix 40 mg by mouth daily and start Lasix 20 mg by mouth daily. Current heart rates in the 70s systolic blood pressures in the 100s. Again, we' ll add low-dose beta konstantin. Will need repeat echo in outpatient setting to evaluate for potential need for ICD. Euvolemic on exam. Discussion w patient/family: The assessment and plan as outlined above was discussed with the patient and/or family members who expressed understanding and agreement. All questions were answered. Thank you for involving us in the care of your patient. Please call with any questions. Subjective Principal diagnosis: CP Interval history: Patient denies any concerns over night. Reports right sided anterior chest wall pain now resolved. He denies any shortness of breath or palpitations. Objective Vital Signs, Last 4 Hours Temp Pulse Resp BP Pulse Ox 03/22/17 07:39 97.6 F 81 105/69 92 03/22/17 06:58 98.5 F 78 14 109/80 95 03/22/17 04:59 97.7 F 71 16 95/60 96 General: Conversant, No Apparent Distress Cardiac: Reg Rate and Rhythm, Normal S1 and S2, No Murmur Lungs: Normal Breath Sounds, No Wheeze, Rales, Rhonchi Neuro: Alert and responsive, No focal deficits noted Skin: No rashes noted on visualized skin Extremities: No Edema, Normal Pulses Results 03/22/17 01:55 03/22/17 01:55 Lab Results Laboratory Tests 02/22/17 03/07/17 03/09/17 08:48 22:48 12:23 INR Magnesium Troponin I 0.50 H* 1.82 H* 1.44 H* 03/21/17 03/21/17 03/21/17 00:21 00:21 00:21 INR 1.4 Magnesium 1.8 Troponin I 0.23 H* 03/21/17 03/21/17 03/21/17 06:22 12:14 18:36 INR Magnesium Troponin I 0.29 H* 0.23 H* 0.21 H* ITS Impressions Chest X-Ray 03/21/17 02:09 IMPRESSION: Interval worsening of bilateral pulmonary opacities may reflect pneumonia or edema. D/ / 03/21/2017 07:31:27 Vignesh Lauren MD / Latrice Ortiz Interpreting Provider: Vignesh Lauren MD Active Medications Albuterol/Ipratropium (Duoneb) 3 ml IH [id number] PRN PRN Reason: Wheezing Stop: 09/20/17 10:31 Aspirin (Aspirin) 81 mg PO DAILY [facility] Stop: 09/20/17 09:01 Last Admin: 03/21/17 10:36 Dose: Not Given Citalopram Hydrobromide (Celexa) 40 mg PO DAILY [facility] Stop: 09/21/17 09:01 Clopidogrel Bisulfate (Plavix) 75 mg PO DAILY [facility] Stop: 09/20/17 09:01 Last Admin: 03/21/17 10:58 Dose: 75 mg Docusate Sodium (Colace) 100 mg PO BID PRN PRN Reason: Constipation Stop: 09/20/17 03:54 Furosemide (Lasix) 40 mg IVP DAILY [facility] Stop: 09/20/17 09:01 Last Admin: 03/21/17 10:36 Dose: Not Given Heparin Sodium (Porcine) (Heparin) 4,000 unit IVP Q6HR PRN PRN Reason: SEE COMMENTS Stop: 09/20/17 05:40 Last Admin: 03/21/17 13:36 Dose: 4,000 unit Heparin Sodium (Porcine) (Heparin) 2,000 unit IVP Q6H PRN PRN Reason: SEE COMMENTS Stop: 09/20/17 05:40 Last Admin: 03/21/17 20:09 Dose: 2,000 unit Heparin Sodium/Dextrose (Heparin 25,000 Unit/500 Ml D5w) 25,000 unit in 500 mls @ 21.772 mls/hr IVC .[id number] [facility]AR[facility]; 12 UNIT/KG/HR PRN Reason: Protocol Stop: 09/20/17 05:46 Last Titration: 03/22/17 03:15 Dose: 18.07 unit/kg/hr, 32.785 mls/hr Lisinopril (Zestril) 2.5 mg PO DAILY [facility] PRN Reason: Protocol Stop: 09/20/17 09:01 Last Admin: 03/21/17 10:38 Dose: Not Given Naloxone HCl (Narcan) 0.4 mg IVP Q2MIN PRN PRN Reason: Opioid Reversal Stop: 09/20/17 03:54 Nitroglycerin (Nitroglycerin) 0.4 mg SL Q5MIN PRN PRN Reason: Chest Pain Stop: 09/20/17 13:32 Ondansetron HCl (Zofran) 4 mg IVP Q8HR PRN PRN Reason: Nausea And Vomiting Stop: 09/20/17 03:54 Risperidone (Risperdal) 1 mg PO DAILY [facility] Stop: 09/21/17 09:01 Rosuvastatin Calcium (Crestor) 40 mg PO HS [facility] Stop: 09/20/17 21:01 Last Admin: 03/21/17 20:10 Dose: 40 mg - Imaging and Cardiology Chest Xray: report reviewed Echo: report reviewed Cardiac cath: report reviewed - EKG Interpretation EKG results cardiology: other (Tele reviewed with avg HR 73, SR, currently SR 70 's) Consult Discharge Plan - Plan Referrals: Osorio Forman MD [Non-Partnered Physician] - 04/16/17 9:15 am
[2017-03-22] MEDS: Furosemide 40 MG/4 ML VIAL IVP SCH ×2 (09:27→09:28)
[2017-03-22] MEDS: Aspirin 81 MG TAB.CHEW PO SCH (09:28)
[2017-03-22] MEDS: risperiDONE 1 MG TABLET PO SCH (09:28)
[2017-03-22] MEDS ORDERED: Acetaminophen 325 MG TABLET PO PRN (10:05)
[2017-03-22] MEDS ORDERED: Metoprolol XL (24 HR) Succ 25 MG TAB.ER.24H PO SCH (10:15)
[2017-03-22] MEDS ORDERED: 0.9 % Sodium Chloride 250 ML IVC ONE ×2 (20:27→21:27)
[2017-03-22] MEDS ORDERED: 0.9 % Sodium Chloride 250 ML ONE (20:30)
[2017-03-23] MEDS ORDERED: 0.9 % Sodium Chloride 500 ML IVC SCH (02:00)
[2017-03-23] MEDS ORDERED: 0.9 % Sodium Chloride 500 ML ONE (02:02)
[2017-03-23] MEDS ORDERED: 0.9 % Sodium Chloride 250 ML IVC ONE (03:40)
[2017-03-23 05:45] LABS: Hematocrit 34.4 % (37.5-50.1); Hemoglobin 11.2 g/dL (12.9-16.9); Mean Corpuscular HGB Conc 32.6 g/dL (31.6-35.5); Mean Corpuscular Hemoglobin 28.9 pg (28.0-33.3); Mean Corpuscular Volume 88.9 fL (83.0-100.0); Mean Platelet Volume 10.6 fL (9.4-12.4); Platelet Count 362 K/mcL (140-400); Red Blood Count 3.87 M/mcL (4.19-5.50); Red Cell Distribution Width 13.4 % (11.5-14.5)
[2017-03-23 06:05] LABS: BUN/Creatinine Ratio 14 (6-26); Blood Urea Nitrogen 15 mg/dL (8-26); Calcium 8.4 mg/dL (8.6-10.8); Carbon Dioxide 25 mEq/L (19-29); Chloride 103 mEq/L (98-109); Glucose 87 mg/dL (70-99); Osmolality,Calculated 280 (280-300); Potassium 3.8 mEq/L (3.5-4.5); Sodium 135 mEq/L (136-145); eGFR For African Americans > 60 (> 60); eGFR For Non-African Americans > 60 (> 60)
--- NOTE | 2017-03-23 07:15 | Discharge Summary ---
<Benjie Alejandra - Last Filed: 03/23/17 10:45> Date of Encounter: 03/23/17 Time of Encounter: 07:15 - Discharge Diagnosis (1) CAD (coronary artery disease) Priority: Primary Status: Chronic Comments: LHC on 02/22/17 with SAMINA in proximal LAD and mid circ and negative repeat cath on 03/07/17 Continue lisinopril, Asa, and Plavix Cardiology started Metoprolol, decreased dose due to hypotension Qualifiers: Coronary Disease-Associated Artery/Lesion type: [place] artery [place] vs. transplanted heart: [place] heart Associated angina: without angina Qualified Code(s): I25.10 - Atherosclerotic heart disease of [place] coronary artery without angina pectoris (2) STEMI (ST elevation myocardial infarction) Priority: Primary Status: Chronic Comments: Serial Troponins adynamic. Heparin ggt discontinued Recent repeat C 03/07/17 shows patent stents. No significant EKG changes. Cardiology/ Dr. Mann determined present symptoms atypical CP, does not suspect ACS-- suspect elevated troponins due to CHF exacerbation. Cardiology recommends titrating medical therapy continue lisinopril, ASA, and Plavix Started on Metoprolol, decreased dose due to hypotension Qualifiers: Involved coronary artery: LAD coronary artery Qualified Code(s): I21.02 - ST elevation (STEMI) myocardial infarction involving left anterior descending coronary artery (3) Acute on chronic systolic CHF (congestive heart failure) Priority: Primary Status: Acute Comments: CHF exacerbation as pt has pulmonary edema, SOB, and Hx of systolic CHF. Suspect elevated troponins due to CHF exacerbation. Patient felt much better with the shortness of breath after Lasix use. 02/22/17 Echo revealed EF 25-30% 03/21/17 Repeat Echo reveals LVEF 30% with severe systolic dysfunction Continue Lisinoprl Started low dose Metoprolol Lasix 10mg PO daily Will need repeat echo in outpatient setting to evaluate for potential need for ICD within 2 months (4) Hypertension Priority: Primary Status: Chronic Comments: Continue Lisinoprl, low dose Metoprolol, Lasix 10mg PO daily Qualifiers: Hypertension type: essential hypertension Qualified Code(s): I10 - Essential (primary) hypertension (5) Bipolar disorder Priority: Secondary Status: Chronic Comments: Continue home meds Qualifiers: Active/Remission status: in remission of unspecified degree Qualified Code( s): F31.70 - Bipolar disorder, currently in remission, most recent episode unspecified (6) Seizure disorder Priority: Secondary Status: Acute Comments: Continue home meds Seizure precautions (7) DVT prophylaxis Priority: Primary Status: Acute Comments: Heparin ggt discontinued Encourage Ambulation - Discharge Medications Prescriptions: Furosemide [Lasix] 10 mg PO DAILY #30 tablet Lisinopril [Zestril] 2.5 mg PO DAILY #30 tablet Metoprolol XL (24 HR) Succ [Toprol Xl] 6.25 mg PO DAILY #40 tab.er.24h Home Medications: Citalopram Hydrobromide [Celexa] 40 mg PO DAILY 03/15/16 [History] risperiDONE [Risperidone] 1 mg PO DAILY 03/15/16 [History] Aspirin 81 mg PO DAILY #30 tab.chew 02/27/17 [Rx] Nitroglycerin 0.4 mg SL Q5MIN PRN #30 tab.subl 02/27/17 [Rx] Rosuvastatin [Crestor] 40 mg PO HS #30 tablet 02/27/17 [Rx] Clopidogrel [Plavix] 75 mg PO DAILY #30 tablet 03/12/17 [Rx] Ipratropium/Albuterol Neb [Duoneb] 3 ml IH [id number] PRN #30 inhsol 03/12/17 [Rx] Acetaminophen [Tylenol] 650 mg PO Q6HR PRN tablet 03/23/17 [Rx] Docusate [Colace] 100 mg PO BID PRN capsule 03/23/17 [Rx] Furosemide [Lasix] 10 mg PO DAILY #30 tablet 03/23/17 [Rx] Lisinopril [Zestril] 2.5 mg PO DAILY #30 tablet 03/23/17 [Rx] Metoprolol XL (24 HR) Succ [Toprol Xl] 6.25 mg PO DAILY #40 tab.er.24h 03/23/17 [Rx] Allergies/Adverse Reactions: 3 Allergy/AdvReac Type Severity Reaction Status Date / Time No Known Allergies Allergy Verified 03/21/17 07:09 Date of admission: 03/21/17 06:56 Primary care physician: Juan M Gomez MD Consults: 03/21/17 08:52 Consult to Cardiology [CONS] Routine Comment: Consulting Provider: Cardiology [place] Reason for Consult: 61 yo M admitted for pulm edema and elevated troponin. H/ o LHC on 02/22/17 (SAMINA in proximal LAD and mid Circ) & 03/07/17. ST elevation in V2-V5. Per ED note, case had been discussed with Dr. Gifford. Call Completed: Yes 03/22/17 08:04 Consult to Physical Therapy [CONS] Routine Comment: Evaluate, develop and implement POC Reason for Consult: weakness OT [Consult to Occupational Therapy] [CONS] Routine Comment: Evaluate, develop and implement POC Reason for Consult: weakness 03/22/17 10:28 Consult to Cardiac Rehabilitation-Phase1 [CONS] Routine Comment: Reason for Consult: if not completed during last hosp stay with STEMI, Call Completed: Yes 03/22/17 15:59 Consult to Claims Adjuster Supervisor [CONS] Routine Reason for SW Consult: Possible return to [facility]; Cole working on. Discharging clinician: Benjie Alejandra Anticipated date of discharge: 03/23/17 - Patient Status Disposition: Home Health Service Condition: Good Functional capacity at discharge: independent ambulation Overall status at discharge: patient is progressing back to baseline - Discharge Instructions Follow Up With: Tigre Restrepo CNP [Advanced Practice Nurse] - (office will call patient at home with appointment date and time) Osorio Forman MD [Non-Partnered Physician] - 04/16/17 9:15 am Additional Instructions: Continue medications as prescribed: Aspirin, Plavix, statin, Lasix, ANA inhibitor, and low-dose beta konstantin. Follow up with organizational psychologist in 1-2 weeks Repeat Echocardiogram in 2 months - Diet and Activity Activity: increase activity as tolerated, resume usual activities as tolerated Diet: low fat, low cholesterol, low salt diet Hospital course: Mr. Preciado is a 61 year old male with a PMH of coronary artery disease, hypertension, bipolar disorder and seizures who presented complaining of chest pain. Of note, he recently suffered an STEMI 02/22/17 requiring left heart catheterization with 1 stent placement. He also presented 03/07/17 with similar symptoms of chest pain, shortness of breath with ST elevation on EKG. He underwent left heart catheterization again and no further occlusion was found and no stent was placed. This episode was very similar to his episode last week. In the emergency department, EKG revealed ST elevations in V2 to V5, changed since last week. Lab results significant for mild white blood cell count elevation, elevated troponin of 0.23, however this is down trending from last week's visit at 1.44. Interventional cardiology was called emergency department, they advised trending troponins and evaluated the patient. Current hospital stay with peak troponin 0.29, downward trend. Discussed and reviewed with Dr. Mann, atypical CP, do not suspect ACS-- suspect elevated troponins due to CHF exacerbation. patient had elevated BNP, pulmonary edema on CXR, SOB, and Hx of systolic CHF (Echo 02/22/17 revealed EF 25-30% and Repeat Echo 03/21/17 revealed LVEF 30% with severe systolic dysfunction). His CP and SOB improved with Lasix and Heparin drip was discontinued. Patient advised by cardiology to continue ASA, Plavix, Lisinopril, and was started on low dose BB and Lasix. Patient was hypotensive after medication administration and dose of BB and Lasix were decreased. Patient was advised to follow up with PCP in 1-2 weeks and repeat echo in outpatient setting to evaluate for potential need for ICD within 2 months. Patient and family verbalized understanding and agreed with plan. - Time Spent with Patient Total time spent providing and/or coordinating discharge services: - Constitutional Vitals: Temp Pulse Resp BP Pulse Ox 97.7 F 71 18 103/58 95 03/23/17 04:33 03/23/17 04:33 03/23/17 04:33 03/23/17 04:33 03/23/17 04:33 General appearance: Present: cooperative, A&O X 3, pleasant, no acute distress, answers questions appropriately Exam: - Head Head exam: Present: atraumatic, normal inspection, normocephalic - Eye Eye exam: Present: PERRL, conjuntiva pink, sclera anicteric - ENT ENT exam: Present: mucous membranes moist, normal oropharynx - Neck Neck exam general surgery: Present: normal inspection, supple. Absent: thyromegaly - Respiratory Respiratory exam: Present: CTAB. Absent: rhonchi, wheezes - Cardiovascular Cardiovascular exam: Present: RRR, +S1, +S2 - GI/Abdominal GI/Abdominal exam: Present: normal bowel sounds, soft. Absent: distended, guarding, tenderness - Additional comments: no fay - Extremities Exam Extremities exam: Present: normal inspection, warm. Absent: pedal edema, tenderness - Back Exam Back exam: Present: normal inspection. Absent: paraspinal tenderness, tenderness - Neurological Exam Neurological exam: Present: alert, oriented X3, no focal deficits. Absent: speech deficit - Psychiatric Psychiatric exam: Present: normal affect, normal mood. Absent: homicidal ideation, suicidal ideation - Skin Skin exam: Present: dry, normal color, warm <Purnima Larkin - Last Filed: 03/23/17 12:15> Date of Encounter: 03/23/17 Date of admission: 03/21/17 06:56 Primary care physician: Juan M Gomez MD Consults: 03/21/17 08:52 Consult to Cardiology [CONS] Routine Comment: Consulting Provider: Cardiology [place] Reason for Consult: 61 yo M admitted for pulm edema and elevated troponin. H/ o LHC on 02/22/17 (SAMINA in proximal LAD and mid Circ) & 03/07/17. ST elevation in V2-V5. Per ED note, case had been discussed with Dr. Gifford. Call Completed: Yes 03/22/17 08:04 Consult to Physical Therapy [CONS] Routine Comment: Evaluate, develop and implement POC Reason for Consult: weakness OT [Consult to Occupational Therapy] [CONS] Routine Comment: Evaluate, develop and implement POC Reason for Consult: weakness 03/22/17 10:28 Consult to Cardiac Rehabilitation-Phase1 [CONS] Routine Comment: Reason for Consult: if not completed during last hosp stay with STEMI, Call Completed: Yes 03/22/17 15:59 Consult to Claims Adjuster Supervisor [CONS] Routine Reason for SW Consult: Possible return to [facility]; Cole working on. Hospital course: Mr. Preciado is a 61 year old male - Time Spent with Patient Total time spent providing and/or coordinating discharge services: - Constitutional Vitals: Temp Pulse Resp BP Pulse Ox 97.9 F 79 16 87/56 98 03/23/17 10:35 03/23/17 10:35 03/23/17 10:35 03/23/17 10:35 03/23/17 10:35 - Attending Attestation I have seen and examined pt independently, I have discussed with Resident physician Dr Alejandra regarding the management plan. Agree with the documentation. Pt feels fine. Denies CP or SOB, denies lightheaded. Overnight low BP noticed. BB and lasix dose has been decreased to metoprolol XL 6.25mg po daily and lasix 10mg po daily. Closely monitor BP. If stable, pt will d/c to home with home health. Pt has low baseline BP and tolerate well if MAP>60. Pt will F/U with cardio as outpatient.
[2017-03-23] MEDS ORDERED: Metoprolol XL (24 HR) Succ 25 MG TAB.ER.24H PO SCH (07:23)
[2017-03-23] MEDS ORDERED: Furosemide 20 MG TABLET PO SCH ×2 (09:00)
--- NOTE | 2017-03-23 09:49 | Physician Discharge Referral ---
Home Health/Hosp Referral Info Transfer to: Home Health Attending Provider: Purnima Larkin Provider in Charge Post Discharge: PCP - Diagnosis (1) STEMI (ST elevation myocardial infarction) Priority: Primary Status: Acute (2) CAD (coronary artery disease) Priority: Primary Status: Chronic (3) Acute on chronic systolic CHF (congestive heart failure) Priority: Primary Status: Acute (4) Hypertension Priority: Primary Status: Chronic (5) Bipolar disorder Priority: Secondary Status: Chronic (6) Seizure disorder Priority: Secondary Status: Acute (7) DVT prophylaxis Priority: Primary Status: Acute - Respiratory Orders Smoking Cessation: Smoking cessation has been advised. For more information, call the [place] Tobacco Quit Line at 0-269-QTLX-NOW. - Diet/Nutrition Diet/Nutrition Orders: Cardiac - Activity Activity Orders: Up ad endy, Ambulate - Services Needed Following services are medically necessary services: Home Health Aide - Transfer Medications Prescriptions: Furosemide [Lasix] 10 mg PO DAILY #30 tablet Lisinopril [Zestril] 2.5 mg PO DAILY #30 tablet Metoprolol XL (24 HR) Succ [Toprol Xl] 6.25 mg PO DAILY #40 tab.er.24h Home Medications: Citalopram Hydrobromide [Celexa] 40 mg PO DAILY 03/15/16 [History] risperiDONE [Risperidone] 1 mg PO DAILY 03/15/16 [History] Aspirin 81 mg PO DAILY #30 tab.chew 02/27/17 [Rx] Nitroglycerin 0.4 mg SL Q5MIN PRN #30 tab.subl 02/27/17 [Rx] Rosuvastatin [Crestor] 40 mg PO HS #30 tablet 02/27/17 [Rx] Clopidogrel [Plavix] 75 mg PO DAILY #30 tablet 03/12/17 [Rx] Ipratropium/Albuterol Neb [Duoneb] 3 ml IH [id number] PRN #30 inhsol 03/12/17 [Rx] Acetaminophen [Tylenol] 650 mg PO Q6HR PRN tablet 03/23/17 [Rx] Docusate [Colace] 100 mg PO BID PRN capsule 03/23/17 [Rx] Furosemide [Lasix] 10 mg PO DAILY #30 tablet 03/23/17 [Rx] Lisinopril [Zestril] 2.5 mg PO DAILY #30 tablet 03/23/17 [Rx] Metoprolol XL (24 HR) Succ [Toprol Xl] 6.25 mg PO DAILY #40 tab.er.24h 03/23/17 [Rx] Allergies/Adverse Reactions: 3 Allergy/AdvReac Type Severity Reaction Status Date / Time No Known Allergies Allergy Verified 03/21/17 07:09 Certification: Further, I certify that my clinical findings support that this patient is homebound (i.e. absences from home require considerable and taxing effort and are for medical reasons or yarsanism services or infrequently or short duration when for other reasons) because: Homebound Reason: Patient requires assistance of a person or device to safely leave home, Leaving home requires considerable and taxing effort due to condition, Severity of cardiac or pulmonary status limits activity tolerance Attestation: My signature below is to certify that this patient is under my care and that I, or nurse practitioner, or a physician's geriatric nursing assistant working with me, has a face-to -face encounter with this patient.
[2017-03-23] MEDS: Aspirin 81 MG TAB.CHEW PO SCH (09:55)
[2017-03-23] MEDS: risperiDONE 1 MG TABLET PO SCH (09:58)
[2017-03-23 10:36] VITALS: BP 87/56
--- NOTE | 2017-03-23 13:48 | Physician Discharge Referral ---
Home Health/Hosp Referral Info Transfer to: Home Health Provider in Charge Post Discharge: PCP - Diagnosis (1) STEMI (ST elevation myocardial infarction) Priority: Primary Status: Chronic (2) CAD (coronary artery disease) Priority: Primary Status: Chronic (3) Acute on chronic systolic CHF (congestive heart failure) Priority: Secondary Status: Acute (4) Hypertension Priority: Secondary Status: Chronic (5) Bipolar disorder Priority: Secondary Status: Chronic (6) Seizure disorder Priority: Secondary Status: Acute (7) DVT prophylaxis Priority: Secondary Status: Acute - Respiratory Orders Smoking Cessation: Smoking cessation has been advised. For more information, call the [place] Tobacco Quit Line at 3-923-AIPW-NOW. - Diet/Nutrition Diet/Nutrition Orders: Cardiac - Activity Activity Orders: Up ad endy - Services Needed Following services are medically necessary services: Nursing, Home Health Aide, Physical Therapy - Transfer Medications Prescriptions: Furosemide [Lasix] 10 mg PO DAILY #30 tablet Lisinopril [Zestril] 2.5 mg PO DAILY #30 tablet Metoprolol XL (24 HR) Succ [Toprol Xl] 6.25 mg PO DAILY #40 tab.er.24h Home Medications: Citalopram Hydrobromide [Celexa] 40 mg PO DAILY 03/15/16 [History] risperiDONE [Risperidone] 1 mg PO DAILY 03/15/16 [History] Aspirin 81 mg PO DAILY #30 tab.chew 02/27/17 [Rx] Nitroglycerin 0.4 mg SL Q5MIN PRN #30 tab.subl 02/27/17 [Rx] Rosuvastatin [Crestor] 40 mg PO HS #30 tablet 02/27/17 [Rx] Clopidogrel [Plavix] 75 mg PO DAILY #30 tablet 03/12/17 [Rx] Ipratropium/Albuterol Neb [Duoneb] 3 ml IH [id number] PRN #30 inhsol 03/12/17 [Rx] Acetaminophen [Tylenol] 650 mg PO Q6HR PRN tablet 03/23/17 [Rx] Docusate [Colace] 100 mg PO BID PRN capsule 03/23/17 [Rx] Furosemide [Lasix] 10 mg PO DAILY #30 tablet 03/23/17 [Rx] Lisinopril [Zestril] 2.5 mg PO DAILY #30 tablet 03/23/17 [Rx] Metoprolol XL (24 HR) Succ [Toprol Xl] 6.25 mg PO DAILY #40 tab.er.24h 03/23/17 [Rx] Allergies/Adverse Reactions: 3 Allergy/AdvReac Type Severity Reaction Status Date / Time No Known Allergies Allergy Verified 03/21/17 07:09 Certification: Further, I certify that my clinical findings support that this patient is homebound (i.e. absences from home require considerable and taxing effort and are for medical reasons or baptist services or infrequently or short duration when for other reasons) because: Homebound Reason: Patient requires assistance of a person or device to safely leave home Attestation: My signature below is to certify that this patient is under my care and that I, or nurse practitioner, or a physician's religious assistant working with me, has a face-to -face encounter with this patient.
== END 2017-03-23 18:17 | disposition home health service (06) | DRG 293 ==
LOC: 2NENU 23:55 → EMEROO 23:55 → 2NENU 03-21 04:42
PROVIDERS: ADMIT Hospitalist; ATTEND Internal Medicine

== ENCOUNTER 2021-11-13 03:07 | Inpatient (IN) ==
[2021-11-13] MEDS ORDERED: Ondansetron ODT 4 MG TAB.RAPDIS SL PRN (05:42)
[2021-11-13] MEDS ORDERED: Naloxone 0.4 MG/ML INJ IVP PRN (05:42)
[2021-11-13] MEDS ORDERED: Melatonin 3 MG TABLET PO PRN (05:42)
[2021-11-13 06:14] LABS: Basophils % 0.2 %; Hemoglobin 17.1 g/dL (12.9-16.9); Immature Granulocytes % 0.5 % (0-4); Lymphocytes # 0.8 K/mcL (0.6-4.6); Lymphocytes % 3.9 %; Mean Corpuscular HGB Conc 32.9 g/dL (31.6-35.5); Mean Corpuscular Hemoglobin 31.3 pg (28.0-33.3); Mean Corpuscular Volume 95.2 fL (83.0-100.0); Mean Platelet Volume 11.4 fL (9.4-12.4); Monocytes # 2.5 K/mcL (0.0-1.3); Monocytes % 12.2 %; Neutrophils # 16.8 K/mcL (1.6-8.9); Platelet Count 211 K/mcL (140-400); Red Blood Count 5.46 M/mcL (4.19-5.50); Red Cell Distribution Width 13.8 % (11.5-14.5); Segmented Neutrophils % 83.2 %; White Blood Count 20.2 K/mcL (4.3-11.1)
[2021-11-13] MEDS ORDERED: *HR* Heparin 5,000 UNIT/ML VIAL IVP ONE (06:17)
[2021-11-13] MEDS ORDERED: *HR* Heparin 5,000 UNIT/ML VIAL IVP PRN (06:17)
[2021-11-13 06:40] LABS: Troponin I 0.08 ng/mL (< 0.04)
[2021-11-13] MEDS: 0.9 % Sodium Chloride 1,000 ML IVC SCH ×2 (06:51→11:30)
[2021-11-13] MEDS ORDERED: Perflutren Lipid Microsphere 1.3 ML in 0.9 % Sodium Chloride 8.7 ML IVP PRN (06:53)
[2021-11-13 07:08] LABS: Albumin 3.5 g/dL (3.5-5.7); Albumin/Globulin Ratio 1.2 (1.1-2.2); Calcium 8.4 mg/dL (8.6-10.3); Magnesium 2.5 mg/dL (1.6-2.6); Phosphorous 3.2 mg/dL (2.7-4.5); Potassium 4.3 mEq/L (3.5-5.1); Total Protein 6.5 g/dL (6.4-8.9)
[2021-11-13 07:12] LABS: Thyroid Stimulating Hormone 4.233 mcIU/mL (0.340-5.600)
[2021-11-13] MEDS: Heparin 25,000UNIT/250ML 1/2NS 25,000 UNIT/250 ML IV.SOLN IVC SCH (07:16)
[2021-11-13 07:30] LABS: Heparin anti-factor XA UFH < 0.04 IU/mL (0.30-0.70)
[2021-11-13 07:31] LABS: INR 1.3; Prothrombin Time 14.4 Seconds (9.4-12.1)
[2021-11-13] MEDS ORDERED: Ipratropium/Albuterol Neb 3 ML ONE (10:52)
[2021-11-13] MEDS: Acetylcysteine 10% 2 ML INHSOL IH SCH ×3 (10:55→22:43)
[2021-11-13] MEDS: Ipratropium/Albuterol Neb 3 ML IH SCH ×3 (10:55→15:49)
[2021-11-13] MEDS: Cefepime HCl 2,000 MG in 0.9 % Sodium Chloride 10 ML IVP SCH ×2 (11:29→22:38)
[2021-11-13] MEDS: MethylPREDNISolone 40 MG/ML VIAL IVP SCH (12:24)
[2021-11-13] MEDS: Doxycycline 100 MG in 0.9 % Sodium Chloride Mini Bag 100 ML IVPB SCH (17:57)
[2021-11-13] MEDS ORDERED: cefTRIAXone 1,000 MG in 0.9 % Sodium Chloride 10 ML IVP SCH (21:00)
[2021-11-14 01:48] LABS: Basophils # 0.1 K/mcL (0.0-0.2); Basophils % 0.3 %; Hematocrit 51.8 % (37.5-50.1); Hemoglobin 16.1 g/dL (12.9-16.9); Immature Granulocytes % 0.5 % (0-4); Lymphocytes # 0.5 K/mcL (0.6-4.6); Lymphocytes % 2.8 %; Mean Corpuscular HGB Conc 31.1 g/dL (31.6-35.5); Mean Corpuscular Hemoglobin 30.4 pg (28.0-33.3); Mean Corpuscular Volume 97.9 fL (83.0-100.0); Mean Platelet Volume 10.9 fL (9.4-12.4); Monocytes # 1.5 K/mcL (0.0-1.3); Monocytes % 8.7 %; Neutrophils # 15.2 K/mcL (1.6-8.9); Platelet Count 188 K/mcL (140-400); Red Blood Count 5.29 M/mcL (4.19-5.50); Red Cell Distribution Width 14.2 % (11.5-14.5); Segmented Neutrophils % 87.7 %; White Blood Count 17.3 K/mcL (4.3-11.1)
[2021-11-14] MEDS: Heparin 25,000UNIT/250ML 1/2NS 25,000 UNIT/250 ML IV.SOLN IVC SCH ×2 (02:16→20:35)
[2021-11-14] MEDS: Doxycycline 100 MG in 0.9 % Sodium Chloride Mini Bag 100 ML IVPB SCH ×2 (05:23→17:57)
[2021-11-14] MEDS: Cefepime HCl 2,000 MG in 0.9 % Sodium Chloride 10 ML IVP SCH ×3 (05:24→19:41)
[2021-11-14 09:40] LABS: Alanine Aminotransferase 84 Units/L (7-52); Albumin 3.1 g/dL (3.5-5.7); Albumin/Globulin Ratio 0.9 (1.1-2.2); Alkaline Phosphatase 55 Units/L (34-104); Aspartate Amino Transferase 157 Units/L (13-39); BUN/Creatinine Ratio 41 (6-26); Bilirubin,Direct 0.2 mg/dL (0.0-0.2); Bilirubin,Indirect 0.4 mg/dL (0.0-1.0); Bilirubin,Total 0.6 mg/dL (0.3-1.0); Blood Urea Nitrogen 47 mg/dL (8-23); Calcium 8.7 mg/dL (8.6-10.3); Carbon Dioxide 22 mEq/L (23-29); Chloride 120 mEq/L (98-107); Globulin 3.4 g/dL (2.4-3.5); Glucose 97 mg/dL (70-105); Osmolality,Calculated 322 (280-300); Potassium 4.5 mEq/L (3.5-5.1); Sodium 150 mEq/L (136-145); Total Protein 6.5 g/dL (6.4-8.9); eGFR For African Americans > 60 (> 60); eGFR For Non-African Americans > 60 (> 60)
[2021-11-14] MEDS: MethylPREDNISolone 40 MG/ML VIAL IVP SCH (09:44)
[2021-11-14] MEDS ORDERED: Ringers Solution, Lactated 500 ML IVC ONE ×2 (18:15→19:45)
[2021-11-14] MEDS: *HR* Heparin 5,000 UNIT/ML VIAL IVP PRN (23:39)
[2021-11-15] MEDS: Cefepime HCl 2,000 MG in 0.9 % Sodium Chloride 10 ML IVP SCH ×3 (06:01→20:35)
[2021-11-15] MEDS ORDERED: QUEtiapine Fumarate 25 MG TABLET PO PRN (07:43)
[2021-11-15 08:22] LABS: Hematocrit 48.3 % (37.5-50.1); Hemoglobin 15.4 g/dL (12.9-16.9); Mean Corpuscular HGB Conc 31.9 g/dL (31.6-35.5); Mean Corpuscular Hemoglobin 30.5 pg (28.0-33.3); Mean Corpuscular Volume 95.6 fL (83.0-100.0); Mean Platelet Volume 11.7 fL (9.4-12.4); Platelet Count 222 K/mcL (140-400); Red Blood Count 5.05 M/mcL (4.19-5.50); White Blood Count 18.3 K/mcL (4.3-11.1)
[2021-11-15] MEDS: *HR* Heparin 5,000 UNIT/ML VIAL IVP PRN (09:25)
[2021-11-15 10:12] LABS: BUN/Creatinine Ratio 35 (6-26); Blood Urea Nitrogen 41 mg/dL (8-23); Calcium 8.4 mg/dL (8.6-10.3); Carbon Dioxide 26 mEq/L (23-29); Chloride 113 mEq/L (98-107); Creatine Kinase 2537 Units/L (30-223); Glucose 97 mg/dL (70-105); Osmolality,Calculated 312 (280-300); Sodium 146 mEq/L (136-145); eGFR For African Americans > 60 (> 60); eGFR For Non-African Americans > 60 (> 60)
[2021-11-15] MEDS: MethylPREDNISolone 40 MG/ML VIAL IVP SCH (10:24)
[2021-11-15] MEDS: Doxycycline 100 MG in 0.9 % Sodium Chloride Mini Bag 100 ML IVPB SCH ×2 (10:24→18:10)
[2021-11-15 12:15] LABS: Prealbumin 11.9 mg/dL (17.0-34.0); Procalcitonin 0.57 ng/mL (0.00-0.15)
[2021-11-15] MEDS ORDERED: Lidocaine Viscous Oral Soln 15 ML SOLUTION ONE (12:52)
[2021-11-15] MEDS ORDERED: *HR* FentaNYL (PF) 100 MCG/2 ML VIAL ONE (12:52)
[2021-11-15] MEDS ORDERED: *HR* Midazolam HCl 5 MG/5 ML VIAL IVP ONE (12:53)
[2021-11-15] MEDS ORDERED: Acetaminophen 325 MG TABLET PO PRN (13:18)
[2021-11-15] MEDS ORDERED: Albuterol 2.5 MG/3 ML NEBULIZER ONE (14:23)
[2021-11-15] MEDS ORDERED: Albuterol 2.5 MG/3 ML NEBULIZER IH ONE (14:25)
[2021-11-15] MEDS: Nystatin SUSP 5 ML UD.LIQ PO SCH ×2 (18:09→22:30)
[2021-11-15] MEDS: lisinopriL 5 MG TABLET PO SCH (18:09)
[2021-11-15] MEDS: *HR* Heparin 5,000 UNIT/ML VIAL SQ SCH ×2 (18:11→18:24)
[2021-11-15] MEDS: Thiamine (B-1) 100 MG TABLET PO SCH ×2 (18:27→20:36)
[2021-11-16] MEDS: Cefepime HCl 2,000 MG in 0.9 % Sodium Chloride 10 ML IVP SCH ×3 (04:44→20:16)
[2021-11-16 05:43] LABS: Hematocrit 45.5 % (37.5-50.1); Hemoglobin 14.3 g/dL (12.9-16.9); Mean Corpuscular HGB Conc 31.4 g/dL (31.6-35.5); Mean Corpuscular Hemoglobin 30.9 pg (28.0-33.3); Mean Corpuscular Volume 98.3 fL (83.0-100.0); Mean Platelet Volume 11.7 fL (9.4-12.4); Platelet Count 196 K/mcL (140-400); Red Blood Count 4.63 M/mcL (4.19-5.50); Red Cell Distribution Width 13.6 % (11.5-14.5); White Blood Count 16.7 K/mcL (4.3-11.1)
[2021-11-16] MEDS: Doxycycline 100 MG in 0.9 % Sodium Chloride Mini Bag 100 ML IVPB SCH (06:13)
[2021-11-16] MEDS: *HR* Heparin 5,000 UNIT/ML VIAL SQ SCH ×2 (06:14→17:44)
[2021-11-16 06:27] LABS: BUN/Creatinine Ratio 34 (6-26); Blood Urea Nitrogen 36 mg/dL (8-23); Calcium 7.9 mg/dL (8.6-10.3); Carbon Dioxide 18 mEq/L (23-29); Chloride 111 mEq/L (98-107); Glucose 81 mg/dL (70-105); Osmolality,Calculated 297 (280-300); Potassium 4.4 mEq/L (3.5-5.1); Sodium 140 mEq/L (136-145); eGFR For African Americans > 60 (> 60); eGFR For Non-African Americans > 60 (> 60)
[2021-11-16 06:28] LABS: Albumin 2.8 g/dL (3.5-5.7); Bilirubin,Direct 0.1 mg/dL (0.0-0.2); Bilirubin,Indirect 0.5 mg/dL (0.0-1.0); Bilirubin,Total 0.6 mg/dL (0.3-1.0); Globulin 2.8 g/dL (2.4-3.5); Total Protein 5.6 g/dL (6.4-8.9)
[2021-11-16] MEDS ORDERED: Ringers Solution, Lactated 1,000 ML IVC SCH (08:00)
[2021-11-16] MEDS: Aspirin Enteric Coated 81 MG Tablet PO SCH (08:37)
[2021-11-16] MEDS: lisinopriL 5 MG TABLET PO SCH (08:37)
[2021-11-16] MEDS: Nystatin SUSP 5 ML UD.LIQ PO SCH ×4 (08:37→20:18)
[2021-11-16] MEDS: MethylPREDNISolone 40 MG/ML VIAL IVP SCH (08:37)
[2021-11-16] MEDS: Thiamine (B-1) 100 MG TABLET PO SCH ×3 (08:37→20:17)
[2021-11-16 09:58] LABS: VBG Ionized Calcium 1.09 mmol/L (1.15-1.35)
[2021-11-16] MEDS: Doxycycline 100 MG CAPSULE PO SCH (20:16)
[2021-11-17] MEDS: Cefepime HCl 2,000 MG in 0.9 % Sodium Chloride 10 ML IVP SCH ×3 (03:55→19:58)
[2021-11-17 04:50] LABS: BUN/Creatinine Ratio 29 (6-26); Blood Urea Nitrogen 29 mg/dL (8-23); Calcium 8.5 mg/dL (8.6-10.3); Carbon Dioxide 24 mEq/L (23-29); Chloride 107 mEq/L (98-107); Glucose 88 mg/dL (70-105); Osmolality,Calculated 289 (280-300); Potassium 4.1 mEq/L (3.5-5.1); Sodium 137 mEq/L (136-145); eGFR For African Americans > 60 (> 60); eGFR For Non-African Americans > 60 (> 60)
[2021-11-17 04:52] LABS: Albumin 2.9 g/dL (3.5-5.7); Albumin/Globulin Ratio 0.9 (1.1-2.2); Bilirubin,Direct 0.1 mg/dL (0.0-0.2); Bilirubin,Indirect 0.6 mg/dL (0.0-1.0); Bilirubin,Total 0.7 mg/dL (0.3-1.0); Globulin 3.2 g/dL (2.4-3.5); Total Protein 6.1 g/dL (6.4-8.9)
[2021-11-17 04:59] LABS: Hemoglobin 14.6 g/dL (12.9-16.9); Mean Corpuscular HGB Conc 33.2 g/dL (31.6-35.5); Mean Corpuscular Hemoglobin 31.1 pg (28.0-33.3); Mean Corpuscular Volume 93.8 fL (83.0-100.0); Mean Platelet Volume 11.6 fL (9.4-12.4); Platelet Count 213 K/mcL (140-400); Red Blood Count 4.69 M/mcL (4.19-5.50); White Blood Count 16.4 K/mcL (4.3-11.1)
[2021-11-17] MEDS: *HR* Heparin 5,000 UNIT/ML VIAL SQ SCH ×2 (05:39→17:56)
[2021-11-17] MEDS: Aspirin Enteric Coated 81 MG Tablet PO SCH (09:06)
[2021-11-17] MEDS: Doxycycline 100 MG CAPSULE PO SCH ×2 (09:07→19:58)
[2021-11-17] MEDS: risperiDONE 1 MG TABLET PO SCH (09:07)
[2021-11-17] MEDS: Nystatin SUSP 5 ML UD.LIQ PO SCH ×4 (09:07→19:59)
[2021-11-17] MEDS: lisinopriL 5 MG TABLET PO SCH (09:07)
[2021-11-17] MEDS: MethylPREDNISolone 40 MG/ML VIAL IVP SCH (09:07)
[2021-11-17] MEDS: Thiamine (B-1) 100 MG TABLET PO SCH ×3 (09:09→19:58)
[2021-11-18 05:50] LABS: Hematocrit 44.1 % (37.5-50.1); Hemoglobin 14.6 g/dL (12.9-16.9); Mean Corpuscular HGB Conc 33.1 g/dL (31.6-35.5); Mean Corpuscular Hemoglobin 30.9 pg (28.0-33.3); Mean Corpuscular Volume 93.2 fL (83.0-100.0); Mean Platelet Volume 11.8 fL (9.4-12.4); Platelet Count 217 K/mcL (140-400); Red Blood Count 4.73 M/mcL (4.19-5.50); Red Cell Distribution Width 12.6 % (11.5-14.5); White Blood Count 14.1 K/mcL (4.3-11.1)
[2021-11-18] MEDS: *HR* Heparin 5,000 UNIT/ML VIAL SQ SCH ×2 (06:19→16:32)
[2021-11-18 06:26] LABS: BUN/Creatinine Ratio 28 (6-26); Blood Urea Nitrogen 26 mg/dL (8-23); Calcium 8.1 mg/dL (8.6-10.3); Carbon Dioxide 27 mEq/L (23-29); Chloride 106 mEq/L (98-107); Glucose 108 mg/dL (70-105); Osmolality,Calculated 293 (280-300); Potassium 4.3 mEq/L (3.5-5.1); Sodium 139 mEq/L (136-145); eGFR For African Americans > 60 (> 60); eGFR For Non-African Americans > 60 (> 60)
[2021-11-18] MEDS: Thiamine (B-1) 100 MG TABLET PO SCH ×2 (08:37→16:31)
[2021-11-18] MEDS: lisinopriL 5 MG TABLET PO SCH (08:38)
[2021-11-18] MEDS: Nystatin SUSP 5 ML UD.LIQ PO SCH ×3 (08:39→16:31)
[2021-11-18] MEDS: Aspirin Enteric Coated 81 MG Tablet PO SCH (08:39)
[2021-11-18] MEDS: risperiDONE 1 MG TABLET PO SCH (08:39)
[2021-11-18] MEDS ORDERED: MethylPREDNISolone 40 MG/ML VIAL IVP SCH (09:00)
[2021-11-18 18:29] VITALS: BP 94/61; PULSE 86; TEMP 98.5; O2SAT 94
== END 2021-11-18 21:56 | DRG 871 ==
LOC: 2ANU → SUATTDRO 05:30
PROVIDERS: ADMIT Student in an Organized Health Care Education/Training Program; ATTEND Internal Medicine

== ENCOUNTER 2022-02-24 03:47 | Observation (INO) ==
[2022-02-24] MEDS ORDERED: Iopamidol - 370 500 ML MLS IVP ONE (03:54)
[2022-02-24 04:25] LABS: Hematocrit 38.8 % (37.5-50.1); Hemoglobin 12.7 g/dL (12.9-16.9); Mean Corpuscular HGB Conc 32.7 g/dL (31.6-35.5); Mean Corpuscular Hemoglobin 30.1 pg (28.0-33.3); Mean Corpuscular Volume 91.9 fL (83.0-100.0); Mean Platelet Volume 10.5 fL (9.4-12.4); Platelet Count 254 K/mcL (140-400); Red Blood Count 4.22 M/mcL (4.19-5.50); White Blood Count 7.9 K/mcL (4.3-11.1)
[2022-02-24 04:33] LABS: INR 1.2; Prothrombin Time 13.9 Seconds (9.4-12.1)
[2022-02-24 04:36] LABS: Activated Partial Thrombo Time 33.6 Seconds (26.0-36.0)
[2022-02-24 04:42] LABS: BUN/Creatinine Ratio 21 (6-26); Blood Urea Nitrogen 21 mg/dL (8-23); Calcium 9.3 mg/dL (8.6-10.3); Carbon Dioxide 25 mEq/L (23-29); Chloride 103 mEq/L (98-107); Ethanol < 10 mg/dL (Less than 10); Glucose 92 mg/dL (70-105); Osmolality,Calculated 285 (280-300); Potassium 3.7 mEq/L (3.5-5.1); Sodium 136 mEq/L (136-145); Troponin I 0.03 ng/mL (< 0.04)
[2022-02-24 04:49] LABS: Bacteria,Urine Few per hpf (None-Few); Bilirubin,Urine Negative (Negative); Blood,Urine Negative (Negative); Calcium Oxalate Crystals,Urine Present per hpf; Clarity,Urine Clear (Clear); Color,Urine Yellow (Yellow); Glucose,Urine (UA) Normal (Normal); Hyaline Casts,Urine Few per lpf (None Seen); Ketones,Urine Negative (Negative); Leukocyte Esterase,Urine Negative (Negative); Mucus,Urine Few per lpf (None-Few); Nitrite,Urine Negative (Negative); Protein,Urine 30 mg/dL (Neg-Trace); RBC,Urine 0-3 per hpf (0-3); Specific Gravity,Urine > 1.030 (1.010-1.025); Squamous Epithelial Cell,Urine Few per hpf (None-Few); Urobilinogen,Urine Normal (Normal); WBC,Urine 0-3 per hpf (0-3)
[2022-02-24] MEDS ORDERED: Ondansetron ODT 4 MG TAB.RAPDIS SL PRN (06:01)
[2022-02-24] MEDS ORDERED: Naloxone 0.4 MG/ML INJ IVP PRN (06:01)
[2022-02-24] MEDS ORDERED: cefTRIAXone 1,000 MG in Water for inj. (sterile) 10 ML IVP ONE (06:24)
[2022-02-24] MEDS ORDERED: Aspirin Enteric Coated 325 MG Tablet PO SCH (09:00)
[2022-02-24] MEDS ORDERED: risperiDONE 1 MG TABLET PO SCH (09:00)
[2022-02-24] MEDS ORDERED: cefTRIAXone 1,000 MG in 0.9 % Sodium Chloride Mini Bag 100 ML IVPB SCH (09:00)
[2022-02-24 09:04] LABS: Thyroid Stimulating Hormone 5.225 mcIU/mL (0.340-5.600)
[2022-02-24 09:26] LABS: Folate > 22.3 ng/mL (3.0-16.0); Vitamin B12 527 pg/mL (250-1100)
[2022-02-24 10:37] LABS: Adenovirus Not Detected (Not Detect); Coronavirus 229E Not Detected (Not Detect); Coronavirus HKU1 Not Detected (Not Detect); Coronavirus NL63 Not Detected (Not Detect); Coronavirus OC43 Not Detected (Not Detect); SARS-CoV-2 Not Detected (Not Detect)
[2022-02-24 10:38] LABS: Bordetella Pertussis Not Detected (Not Detect); Chlamydophila pneumoniae Not Detected (Not Detect); Human Metapneumovirus Not Detected (Not Detect); Human Rhinovirus/Enterovirus Not Detected (Not Detect); Influenza A Subtype 2009 H1 Not Detected (Not Detect); Influenza B Not Detected (Not Detect); Mycoplasma pneumoniae Not Detected (Not Detect); Parainfluenza Virus 1 Not Detected (Not Detect); Parainfluenza Virus 2 Not Detected (Not Detect); Parainfluenza Virus 3 Not Detected (Not Detect); Parainfluenza Virus 4 Not Detected (Not Detect); Respiratory Syncytial Virus Not Detected (Not Detect)
[2022-02-24 11:11] LABS: Troponin I < 0.03 ng/mL (< 0.04)
[2022-02-24 16:17] VITALS: BP 113/62; PULSE 65; TEMP 97.5; O2SAT 95
[2022-02-25] MEDS ORDERED: Aspirin 81 MG TAB.CHEW PO SCH (09:00)
== END 2022-02-24 18:28 ==
LOC: 3NENU 03:47 → EMEROOARM 03:47 → SUATTDRO 06:24 → 3NENU 07:49
PROVIDERS: ADMIT Internal Medicine; ATTEND Nurse Practitioner

== ENCOUNTER 2022-03-08 19:20 | Inpatient (IN) ==
[2022-03-08 20:14] LABS: Basophils % 0.2 %; Eosinophils % 0.1 %
[2022-03-08 20:15] LABS: Basophils # 0.1 K/mcL (0.0-0.2); Hematocrit 41.2 % (37.5-50.1); Hemoglobin 13.3 g/dL (12.9-16.9); Immature Granulocytes % 0.7 % (0-4); Lymphocytes # 1.3 K/mcL (0.6-4.6); Lymphocytes % 5.2 %; Mean Corpuscular HGB Conc 32.3 g/dL (31.6-35.5); Mean Corpuscular Hemoglobin 29.4 pg (28.0-33.3); Mean Corpuscular Volume 91.2 fL (83.0-100.0); Mean Platelet Volume 10.1 fL (9.4-12.4); Monocytes # 1.3 K/mcL (0.0-1.3); Monocytes % 5.2 %; Platelet Count 343 K/mcL (140-400); Red Blood Count 4.52 M/mcL (4.19-5.50); Red Cell Distribution Width 13.5 % (11.5-14.5); Segmented Neutrophils % 88.6 %; White Blood Count 25.2 K/mcL (4.3-11.1)
[2022-03-08 20:31] LABS: Neutrophils # 22.3 K/mcL (1.6-8.9)
[2022-03-08 20:38] LABS: BUN/Creatinine Ratio 27 (6-26); Blood Urea Nitrogen 25 mg/dL (8-23); Calcium 9.4 mg/dL (8.6-10.3); Carbon Dioxide 23 mEq/L (23-29); Chloride 109 mEq/L (98-107); Glucose 123 mg/dL (70-105); Magnesium 1.7 mg/dL (1.6-2.6); Osmolality,Calculated 282 (280-300); Sodium 133 mEq/L (136-145); Troponin I < 0.03 ng/mL (< 0.04)
[2022-03-08 20:47] LABS: Platelet Estimate Normal (Normal)
[2022-03-08] MEDS ORDERED: 0.9 % Sodium Chloride 1,000 ML IVC ONE (21:03)
[2022-03-08] MEDS ORDERED: Ampicillin/Sulbactam 3,000 MG in 0.9 % Sodium Chloride Mini Bag 100 ML IVPB ONE (21:05)
[2022-03-08] MEDS ORDERED: Vancomycin 1,250 MG/262.5 ML IV.SOLN IVPB ONE (21:10)
[2022-03-08 21:20] LABS: Adenovirus Not Detected (Not Detect); Bordetella Pertussis Not Detected (Not Detect); Chlamydophila pneumoniae Not Detected (Not Detect); Coronavirus 229E Not Detected (Not Detect); Coronavirus HKU1 Not Detected (Not Detect); Coronavirus NL63 Not Detected (Not Detect); Coronavirus OC43 Not Detected (Not Detect); Human Metapneumovirus Not Detected (Not Detect); Human Rhinovirus/Enterovirus Not Detected (Not Detect); Influenza A Subtype 2009 H1 Not Detected (Not Detect); Influenza B Not Detected (Not Detect); Mycoplasma pneumoniae Not Detected (Not Detect); Parainfluenza Virus 1 Not Detected (Not Detect); Parainfluenza Virus 2 Not Detected (Not Detect); Parainfluenza Virus 3 Not Detected (Not Detect); Parainfluenza Virus 4 Not Detected (Not Detect); Respiratory Syncytial Virus Not Detected (Not Detect); SARS-CoV-2 Not Detected (Not Detect)
[2022-03-08 22:09] LABS: Bacteria,Urine Moderate per hpf (None-Few); Bilirubin,Urine Negative (Negative); Blood,Urine Small (Negative); Clarity,Urine Turbid (Clear); Color,Urine Yellow (Yellow); Glucose,Urine (UA) Normal (Normal); Ketones,Urine Negative (Negative); Leukocyte Esterase,Urine Large (Negative); Mucus,Urine Few per lpf (None-Few); Nitrite,Urine Positive (Negative); PH,Urine 6.5 pH Units (5.0-8.0); Protein,Urine 50 mg/dL (Neg-Trace); Specific Gravity,Urine 1.028 (1.010-1.025); Squamous Epithelial Cell,Urine Few per hpf (None-Few); Urobilinogen,Urine Normal (Normal); WBC,Urine TNTC per hpf (0-3)
[2022-03-08] MEDS ORDERED: Ondansetron 4 MG/2 ML VIAL IVP PRN (23:02)
[2022-03-08] MEDS ORDERED: Naloxone 0.4 MG/ML INJ IVP PRN (23:02)
[2022-03-08] MEDS ORDERED: Melatonin 3 MG TABLET PO PRN (23:02)
[2022-03-08] MEDS ORDERED: Acetaminophen 325 MG TABLET PO PRN (23:02)
[2022-03-08] MEDS ORDERED: *HR* Dextrose 50 % in Water (Syg) 50 ML SYRINGE IVP PRN (23:40)
[2022-03-08] MEDS ORDERED: Dextrose Gel 15 GM/37.5 ML TUBE PO PRN ×2 (23:40)
[2022-03-08] MEDS ORDERED: D5% in Water 1,000 ML IVC PRN (23:40)
[2022-03-09] MEDS: cefTRIAXone 1,000 MG in 0.9 % Sodium Chloride Mini Bag 100 ML IVPB SCH (08:18)
[2022-03-09] MEDS: Ringers Solution, Lactated 1,000 ML IVC SCH ×2 (08:19→21:10)
[2022-03-09] MEDS: Lactobacillus 1 EACH CAP.SPRINK PO SCH ×2 (08:31→21:12)
[2022-03-09] MEDS: RisperiDAL 3 MG TABLET PO SCH ×2 (08:31→21:12)
[2022-03-09] MEDS ORDERED: E-Z-HD (BARIUM SULF) SUSPENSION PO ONE (12:37)
[2022-03-09] MEDS ORDERED: E-Z-PAQUE (BARIUM SULF) SUSP 1 BOTTLE PO ONE (12:37)
[2022-03-09 16:16] LABS: Basophils # 0.1 K/mcL (0.0-0.2); Basophils % 0.4 %; Eosinophils # 0.3 K/mcL (0.0-0.6); Eosinophils % 2.3 %; Hematocrit 36.9 % (37.5-50.1); Immature Granulocytes % 0.5 % (0-4); Lymphocytes # 1.6 K/mcL (0.6-4.6); Lymphocytes % 12.4 %; Mean Corpuscular HGB Conc 31.4 g/dL (31.6-35.5); Mean Corpuscular Volume 92.3 fL (83.0-100.0); Mean Platelet Volume 10.5 fL (9.4-12.4); Monocytes % 7.9 %; Neutrophils # 9.8 K/mcL (1.6-8.9); Platelet Count 294 K/mcL (140-400); Red Cell Distribution Width 13.4 % (11.5-14.5); Segmented Neutrophils % 76.5 %; White Blood Count 12.8 K/mcL (4.3-11.1)
[2022-03-09 16:25] LABS: Hemoglobin 11.6 g/dL (12.9-16.9)
[2022-03-09 16:41] LABS: INR 1.5; Prothrombin Time 16.6 Seconds (9.4-12.1)
[2022-03-09 16:43] LABS: Activated Partial Thrombo Time 32.2 Seconds (26.0-36.0)
[2022-03-09 17:52] LABS: Alanine Aminotransferase 11 Units/L (7-52); Albumin 3.2 g/dL (3.5-5.7); Alkaline Phosphatase 53 Units/L (34-104); Aspartate Amino Transferase 13 Units/L (13-39); BUN/Creatinine Ratio 22 (6-26); Bilirubin,Total 0.4 mg/dL (0.3-1.0); Blood Urea Nitrogen 19 mg/dL (8-23); Calcium 9.3 mg/dL (8.6-10.3); Carbon Dioxide 23 mEq/L (23-29); Chloride 107 mEq/L (98-107); Globulin 3.3 g/dL (2.4-3.5); Glucose 95 mg/dL (70-105); Magnesium 1.8 mg/dL (1.6-2.6); Osmolality,Calculated 290 (280-300); Phosphorous 4.2 mg/dL (2.7-4.5); Potassium 3.8 mEq/L (3.5-5.1); Sodium 139 mEq/L (136-145); Total Protein 6.5 g/dL (6.4-8.9); Troponin I 0.03 ng/mL (< 0.04)
[2022-03-09] MEDS ORDERED: rOPINIRole 0.25 MG TABLET PO SCH (21:00)
[2022-03-10 03:19] LABS: Basophils # 0.1 K/mcL (0.0-0.2); Basophils % 0.7 %; Eosinophils # 0.5 K/mcL (0.0-0.6); Eosinophils % 4.9 %; Hematocrit 35.6 % (37.5-50.1); Hemoglobin 11.4 g/dL (12.9-16.9); Immature Granulocytes % 0.6 % (0-4); Lymphocytes # 1.5 K/mcL (0.6-4.6); Lymphocytes % 13.7 %; Mean Corpuscular Hemoglobin 29.3 pg (28.0-33.3); Mean Corpuscular Volume 91.5 fL (83.0-100.0); Mean Platelet Volume 10.4 fL (9.4-12.4); Monocytes # 1.1 K/mcL (0.0-1.3); Monocytes % 9.9 %; Neutrophils # 7.5 K/mcL (1.6-8.9); Platelet Count 289 K/mcL (140-400); Red Blood Count 3.89 M/mcL (4.19-5.50); Red Cell Distribution Width 13.6 % (11.5-14.5); Segmented Neutrophils % 70.2 %; White Blood Count 10.6 K/mcL (4.3-11.1)
[2022-03-10 03:43] LABS: BUN/Creatinine Ratio 20 (6-26); Blood Urea Nitrogen 18 mg/dL (8-23); Calcium 9.3 mg/dL (8.6-10.3); Carbon Dioxide 26 mEq/L (23-29); Chloride 106 mEq/L (98-107); Glucose 85 mg/dL (70-105); Magnesium 1.7 mg/dL (1.6-2.6); Osmolality,Calculated 287 (280-300); Phosphorous 4.7 mg/dL (2.7-4.5); Potassium 3.7 mEq/L (3.5-5.1); Sodium 138 mEq/L (136-145)
[2022-03-10] MEDS ORDERED: *HR* Enoxaparin 40 MG/0.4 ML SYRINGE SQ SCH (06:00)
[2022-03-10] MEDS ORDERED: Acetaminophen 325 MG TABLET PO PRN (07:33)
[2022-03-10] MEDS ORDERED: *HR* HYDROcodone/Acet 5/325 mg TABLET PO PRN (07:33)
[2022-03-10] MEDS ORDERED: PROTEIN SUPPLEMENT PO SCH (09:00)
[2022-03-10] MEDS ORDERED: lisinopriL 5 MG TABLET PO SCH (09:00)
[2022-03-10] MEDS ORDERED: Loratadine 10 MG TABLET PO SCH (09:00)
[2022-03-10] MEDS ORDERED: Fluconazole 100 MG TABLET PO SCH (09:00)
[2022-03-10] MEDS ORDERED: risperiDONE 1 MG TABLET PO SCH (09:00)
[2022-03-10] MEDS: cefTRIAXone 1,000 MG in 0.9 % Sodium Chloride Mini Bag 100 ML IVPB SCH (09:55)
[2022-03-10] MEDS: Lactobacillus 1 EACH CAP.SPRINK PO SCH (09:55)
[2022-03-10 12:02] VITALS: BP 119/56; PULSE 89; TEMP 97.5; O2SAT 95
[2022-03-10] MEDS ORDERED: Triamcinolone Acet 0.1% CRM 15 GM TUBE TP SCH (21:00)
[2022-03-10] MEDS ORDERED: RisperiDAL 3 MG TABLET PO SCH (21:00)
== END 2022-03-10 13:36 | DRG 871 ==
LOC: SUATTDRO → EMEROOARM 19:20 → 3ANU 19:20 → SUATTDRO 23:27 → 3ANU 03-09 00:50
PROVIDERS: ADMIT Internal Medicine; ATTEND Internal Medicine